=== PATIENT | female | born 1960 | race Caucasian/White ===

== ENCOUNTER 2016-11-17 15:24 | Emergency (ER) | payer MEDICAID | END 2016-11-17 15:58 | disposition home or self-care (01) | DX: T36.0X5A Adverse effect of penicillins, initial encounter (principal); R11.2 Nausea with vomiting, unspecified; K08.409 Partial loss of teeth, unspecified cause, unspecified class ==

== ENCOUNTER 2017-03-07 08:06 | Outpatient (CLI) | payer MEDICAID ==
[2017-03-07 08:40] LABS: BASOPHILS # (AUTO) 0.1 10^3/uL (0.0-0.1); BASOPHILS % (AUTO) 2.8 %; EOSINOPHILS # (AUTO) 0.1 10^3/uL (0.0-0.7); EOSINOPHILS % (AUTO) 3.7 %; HCT - HEMATOCRIT 41.1 % (37.0-47.0); HGB - HEMOGLOBIN 13.8 g/dL (12.0-16.0); LYMPHOCYTES # (AUTO) 1.5 10^3/uL (1.5-3.5); LYMPHOCYTES % (AUTO) 38.4 %; MEAN CORPUSCULAR HEMOGLOBIN 30.7 pg (27.0-31.0); MEAN CORPUSCULAR HGB CONC 33.6 g/dL (32.0-36.0); MEAN CORPUSCULAR VOLUME 91.4 fL (81.0-99.0); MEAN PLATELET VOLUME 8.1 fL (7.9-10.8); MONOCYTES # (AUTO) 0.3 10^3/uL (0.0-1.0); MONOCYTES % (AUTO) 7.4 %; NEUTROPHILS # (AUTO) 1.8 10^3/uL (1.5-6.6); NEUTROPHILS % (AUTO) 47.7 %; NUCLEATED RED BLOOD CELLS AUTO 0.1 /100WBC; RED CELL DISTRIBUTION WIDTH 14.6 % (12.0-15.0); UNCORRECTED WHITE BLOOD COUNT 3.8 x10^3/uL; WHITE BLOOD COUNT 3.8 x10^3/uL (4.8-10.8)
[2017-03-07 09:08] LABS: ALBUMIN/GLOBULIN RATIO 1.5 (1.0-2.2); BILIRUBIN,TOTAL 0.3 mg/dL (0.2-1.0); BUN - BLOOD UREA NITROGEN 12 mg/dL (6-20); CALCIUM 9.1 mg/dL (8.5-10.3); CARBON DIOXIDE - CO2 28 mmol/L (21-32); CHLORIDE 107 mmol/L (101-111); CHOL/HDL RATIO 3.5 (<4.4); CHOLESTEROL 200 mg/dL; CREATININE 0.7 mg/dL (0.4-1.0); GFR - MDRD 87 (>89); GLUCOSE 90 mg/dL (70-100); HDL CHOLESTEROL 57 mg/dL; LDL/HDL RATIO 2.1 (<4.4); POTASSIUM 3.8 mmol/L (3.5-5.0); SODIUM 141 mmol/L (135-145); TOTAL PROTEIN 7.2 g/dL (6.7-8.2); TRIGLYCERIDES 118 mg/dL; VLDL CHOLESTEROL 24 mg/dL
== END 2017-03-07 08:07 | disposition home or self-care (01) ==
LOC: LAB 08:06
PROVIDERS: ATTEND Family Medicine
DX: Z00.00 Encounter for general adult medical examination without abnormal findings (principal)
CPT/HCPCS: 36415; 80053; 80061; 84443; 85025

== ENCOUNTER 2018-01-16 19:45 | Emergency (ER) | payer MEDICAID ==
[2018-01-16] MEDS ORDERED: HYDROcod/ACETAM 5/325 MG TABLET PO STA (20:15)
--- NOTE | 2018-01-16 20:17 | ED Physician Documentation ---
PD HPI LOWER EXT INJURY - Stated complaint Stated Complaint: LT ANKLE PX/FALL - Chief complaint Chief Complaint: Ext Problem - History obtained from History obtained from: Patient - History of Present Illness PD HPI LOW EXT INJURY LOCATION: Other (She has a history of seizure disorder, on Depakote and Dilantin. She has been feeling a little off and out of it all day, dizzy and woozy and forgetful. She fell down a slope and injured her right ankle. She hurt her neck a little bit. She is able to walk and bear weight but with a lot of pain. 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 05/06/16 11/17/16 Phenytoin [Dilantin] 400 mg PO DAILY #8 capsule 05/06/16 11/17/16 HYDROcod/ACETAM 5/325 [[place] 5/325] 1 - 2 ea PO Q6H PRN #15 tablet 01/16/18 - Allergies Allergies/Adverse Reactions: Allergies Allergy/AdvReac Type Severity Reaction Status Date / Time codeine Allergy Rash Verified 01/16/18 20:01 - Social History Does the pt smoke?: Yes Smoking Status: Current every day smoker Does the pt drink ETOH?: No Does the pt have substance abuse?: No - Immunizations Immunizations are current?: No Immunizations: TDAP >10years/unknown PD ED PE NORMAL - Vitals Vital signs reviewed: Yes - General General: Alert and oriented X 3, No acute distress - Neck Neck: Supple, no meningeal sign, No bony TTP - Extremities Extremities: Other (Right leg is tender over the mid fibula laterally, I am able to feel her hardware and she is nontender over what seems to be a lateral plate there. Mild posterior ankle tenderness but the Achilles function is normal. The foot is nontender.) - Neuro Neuro: Alert and oriented X 3, Normal speech Results - Vitals Vitals: Vital Signs - 24 hr 01/16/18 01/16/18 19:52 21:30 Temperature 36.4 C L 36.5 C Heart Rate 73 66 Respiratory 17 16 Rate Blood Pressure 109/67 115/71 O2 Saturation 97 98 Oxygen O2 Source Room air - Labs Labs: Laboratory Tests 01/16/18 20:54 Last Dose Date UNK Last Dose Time UNK Phenytoin 14.4 Valproic Acid 12.8 - Rads (name of study) X-rays of the left ankle and tib-fib Radiology: EMP read contemporaneously (Mildly displaced fracture of the fibular head without mortise widening or ankle fracture.) PD MEDICAL DECISION MAKING - ED course ED course: 57-year-old woman with lower extremity injury, proximal fibular fracture on the left with remote history of ORIF of the lateral side of that ankle, however based on exam and x-ray it does not seem to have any primary ankle injury and the medial ligaments look without widening on the pictures. Case was discussed by phone with the orthopedic surgeon on-call, Dr. Drake who felt this could be handled conservatively and she could weight-bear as tolerated. - Sepsis Event Vital Signs: Vital Signs - 24 hr 01/16/18 01/16/18 19:52 21:30 Temperature 36.4 C L 36.5 C Heart Rate 73 66 Respiratory 17 16 Rate Blood Pressure 109/67 115/71 O2 Saturation 97 98 Oxygen O2 Source Room air Departure - Departure Disposition: 01 Home, Self Care Clinical Impression: Left fibular fracture Qualifiers: Encounter type: initial encounter Fibula location: proximal Fracture type: closed Fracture morphology: other fracture Qualified Code(s): S82.832A - Other fracture of upper and lower end of left fibula, initial encounter for closed fracture Condition: Good Record reviewed to determine appropriate education?: Yes Instructions: ED Fx Lower Ext Follow-Up: [facility] [Provider Group] - Within 1 week Prescriptions: HYDROcod/ACETAM 5/325 [[place] 5/325] 1 - 2 ea PO Q6H PRN #15 tablet PRN Reason: Pain Comments: You may walk and bear weight as tolerated. Follow-up with the orthopedics clinic clinic, call Saturday for an appointment within the week.
--- NOTE | 2018-01-16 20:55 | XRAY Preliminary Report ---
Exam: XR TIB/FIB LT IMPRESSION: 1. Mildly displaced fibular head fracture. 2. Status post ORIF distal fibula, intact. [facility] SITE ID: [id number]
--- NOTE | 2018-01-16 20:55 | XRAY Report ---
EXAM: LEFT TIBIA/FIBULA AND ANKLE RADIOGRAPHY EXAM DATE: 01/16/2018 08:48 PM. CLINICAL HISTORY: Left leg pain. COMPARISON: None. TECHNIQUE: 2 views tibia/fibula and 3 views ankle. FINDINGS: Bones: There is a mildly displaced fracture involving the fibular head. There is fusion of the distal fibula with no hardware failure demonstrated. The remainder osseous structures are intact. Minor mehran ntar spurring is seen. Joints: The visualized knee and ankle joints are normal. No effusions. Soft Tissues: Normal. No soft tissue swelling. IMPRESSION: 1. Mildly displaced fibular head fracture. 2. Status post ORIF distal fibula, intact. [facility] Referring Provider Line: [phone] SITE ID: [id number]
--- NOTE | 2018-01-16 20:55 | XRAY Preliminary Report ---
Exam: XR ANKLE 3 VIEW LT IMPRESSION: 1. Mildly displaced fibular head fracture. 2. Status post ORIF distal fibula, intact. [facility] SITE ID: [id number]
[2018-01-16] MEDS ORDERED: HYDROcod/ACET 5/325 Prepack 4 PO STA (21:02)
[2018-01-16 21:16] LABS: PHENYTOIN (DILANTIN) 14.4 ug/mL; VALPROIC ACID (DEPAKOTE) 12.8 ug/mL
[2018-01-16 21:31] VITALS: BP 115/71
== END 2018-01-16 21:53 | disposition home or self-care (01) ==
LOC: ED 19:45
DX: S82.832A Other fracture of upper and lower end of left fibula, initial encounter for closed fracture (principal); W18.30XA Fall on same level, unspecified, initial encounter; Y93.01 Activity, walking, marching and hiking; Y92.89 Other specified places as the place of occurrence of the external cause; F17.200 Nicotine dependence, unspecified, uncomplicated
CPT/HCPCS: 36415; 73590; 73610; 80164; 80185; 99283; A9270

== ENCOUNTER 2018-01-21 19:28 | Emergency (ER) | payer MEDICAID ==
[2018-01-21 21:14] VITALS: BP 127/78
--- NOTE | 2018-01-21 21:15 | ED Physician Documentation ---
PD HPI LOWER EXT INJURY - Stated complaint Stated Complaint: L FT SWELLING - Chief complaint Chief Complaint: Ext Problem - History obtained from History obtained from: Patient - History of Present Illness PD HPI LOW EXT INJURY LOCATION: Left, Lower leg Type of injury: Fall Timing - onset: How many weeks ago (1) Timing - details: Abrupt onset, Still present Improved by: Immobilization Similar symptoms before: Work up / diagnostics, Treatment Recently seen: Emergency Dept - Additional information Additional information: Patient is a 57 year old female who is presenting to the emergency department for lower extremity swelling. Patient was seen in the emergency department a few days prior and was diagnosed with a fib fracture. patient states that her pain medications aren't working and her foot is swollen so she came to the emergency department. patient has not found an orthopedist who takes her insurance so she has not been able to follow up. 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 05/06/16 11/17/16 Phenytoin [Dilantin] 400 mg PO DAILY #8 capsule 05/06/16 11/17/16 HYDROcod/ACETAM 5/325 [[place] 5/325] 1 - 2 ea PO Q6H PRN #15 tablet 01/16/18 - Allergies Allergies/Adverse Reactions: Allergies Allergy/AdvReac Type Severity Reaction Status Date / Time codeine Allergy Rash Verified 01/16/18 20:01 - Social History Does the pt smoke?: Yes Smoking Status: Current every day smoker Does the pt drink ETOH?: No Does the pt have substance abuse?: No - Immunizations Immunizations are current?: No Immunizations: TDAP >10years/unknown PD ED PE NORMAL - Vitals Vital signs reviewed: Yes - General General: Alert and oriented X 3, No acute distress - HEENT HEENT: Atraumatic - Cardiac Cardiac: RRR - Respiratory Respiratory: No respiratory distress - Abdomen Abdomen: Non distended - Derm Derm: Normal color, Warm and dry - Neuro Neuro: Alert and oriented X 3, Normal speech Eye Opening: Spontaneous PD ED PE EXPANDED - Extremities Extremities: Pedal edema L, Pedal Pulses Present, Motor intact, Sensory intact, Vascular intact, Other (swelling of left foot, neurovascularly intact). No: Decreased/absent pulse, Cold foot Results - Vitals Vitals: Vital Signs - 24 hr 18 01/21/18 19:51 21:13 Temperature 36.0 C L 36.5 C Heart Rate 85 79 Respiratory 18 18 Rate Blood Pressure 115/64 127/78 O2 Saturation 99 97 Oxygen O2 Source Room air PD MEDICAL DECISION MAKING - ED course Complexity details: reviewed old records, reviewed results, re-evaluated patient , considered differential, d/w patient, d/w family ED course: Patient was seen and examined at bedside. patient was well appearing. Patient' s previous records were reviewed. patient was given copies of her x-rays. Patient was neurovascularly intact. patient required no further inpatient work up and was stable for discharge with outpatient follow up. - Sepsis Event Vital Signs: Vital Signs - 24 hr 18 01/21/18 19:51 21:13 Temperature 36.0 C L 36.5 C Heart Rate 85 79 Respiratory 18 18 Rate Blood Pressure 115/64 127/78 O2 Saturation 99 97 Oxygen O2 Source Room air Departure - Departure Disposition: 01 Home, Self Care Clinical Impression: Left fibular fracture Condition: Good Instructions: ED Fx Lower Ext Follow-Up: Audie Drake MD [Provider Admit Priv/Credential] - Within 1 week Comments: Your symptoms today are secondary to the fracture near your knee. your ankle looks well and there is no abnormality with the plates in your ankle. you should follow up with your doctor or doctor Drake for follow up. You should elevate your leg as much as possible and ice it at least 4 times a day. You may return to the emergency department at any time for new, worsening or uncontrollable symptoms. Discharge Date/Time: 01/21/18 21:25
== END 2018-01-21 21:25 | disposition home or self-care (01) ==
LOC: ED 19:28
DX: S82.402D Unspecified fracture of shaft of left fibula, subsequent encounter for closed fracture with routine healing (principal); W19.XXXD Unspecified fall, subsequent encounter; F17.200 Nicotine dependence, unspecified, uncomplicated
CPT/HCPCS: 99282; 99283

== ENCOUNTER 2019-12-24 18:51 | Outpatient (CLI) | payer MEDICARE | END 2019-12-24 18:52 | disposition home or self-care (01) | LOC: COV 18:51 | PROVIDERS: ATTEND Family Medicine | DX: R50.9 Fever, unspecified (principal); R05 Cough; R06.02 Shortness of breath; M79.10 Myalgia, unspecified site; R53.83 Other fatigue; J02.9 Acute pharyngitis, unspecified | CPT/HCPCS: 81599 ==

== ENCOUNTER 2020-10-13 15:34 | Outpatient (CLI) | payer MEDICARE, MEDICAID | END 2020-10-13 15:35 | disposition critical access hospital (66) | LOC: EMS 15:34 | PROVIDERS: ATTEND Emergency Medicine | DX: R56.9 Unspecified convulsions (principal) | CPT/HCPCS: A0425; A0429 ==

== ENCOUNTER 2020-10-13 15:38 | Emergency (ER) | payer MEDICAID, MEDICARE ==
--- NOTE | 2020-10-13 16:18 | ED Physician Documentation ---
PD HPI SEIZURE - Stated complaint Stated Complaint: SEIZURE - Chief complaint Chief Complaint: Neuro - History obtained from History obtained from: Patient - History of Present Illness Timing - onset: Today Witnessed: Witnessed Number of seizures: Single Description of seizure activity: Generalized, Tonic clonic Injury during seizure: None Pain level max: 0 Pain level now: 0 History of seizures: Known seizure disorder Contributing factors: No: Off meds, Changed meds, Low blood sugar, Head injury, Substance abuse, EtOH withdrawal, Benzo withdrawal, Overdose, Fever, Sleep deprivation Similar symptoms before: Diagnosis (recurrent seizures) - Additional information Additional information: 60-year-old female presents to the emergency department with a seizure today. Has a longstanding history of seizures. She states she has 1 every few days. This was described as a generalized tonic-clonic seizure. Witnessed by her . No injuries. No tongue biting. She states she has not missed any of her medications. She is on Dilantin. No urinary incontinence. Nothing makes it better or worse. No recent illnesses. Review of Systems Ten Systems: 10 systems reviewed and negative Constitutional: denies: Fever, Chills Ears: denies: Ear pain Nose: denies: Rhinorrhea / runny nose, Congestion Cardiac: denies: Chest pain / pressure, Palpitations Respiratory: denies: Dyspnea, Cough GI: denies: Vomiting, Diarrhea Skin: denies: Rash Musculoskeletal: denies: Neck pain, Back pain Neurologic: reports: Confused (initially post ictal, but improving). 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 05/06/16 11/17/16 Phenytoin [Dilantin] 400 mg PO DAILY #8 capsule 05/06/16 11/17/16 HYDROcod/ACETAM 5/325 [[place] 5/325] 1 - 2 ea PO Q6H PRN #15 tablet 01/16/18 - Allergies Allergies/Adverse Reactions: Allergies Allergy/AdvReac Type Severity Reaction Status Date / Time codeine Allergy Rash Verified 10/13/20 15:53 - Social History Does the pt smoke?: Yes Smoking Status: Current every day smoker Does the pt drink ETOH?: No Does the pt have substance abuse?: No - Immunizations Immunizations are current?: No Immunizations: TDAP >10years/unknown PD ED PE NORMAL - Vitals Vital signs reviewed: Yes - General General: Alert and oriented X 3, No acute distress - HEENT HEENT: Atraumatic, PERRL, Ears normal, Moist mucous membranes, Pharynx benign - Neck Neck: Supple, no meningeal sign - Cardiac Cardiac: RRR, Strong equal pulses - Respiratory Respiratory: No respiratory distress, Clear bilaterally - Abdomen Abdomen: Soft, Non tender, Non distended - Back Back: No spinal TTP - Derm Derm: Warm and dry, No rash - Extremities Extremities: No edema, No calf tenderness / cord, Other (L foot - Tender palpation over the dorsal distal aspect of the fifth metatarsal.) - Neuro Neuro: Alert and oriented X 3, radio board operator announcer 2-12 intact, No motor deficit, No sensory deficit, Normal speech - Psych Psych: Normal mood, Normal affect Results - Vitals Vitals: Vital Signs - 24 hr 10/13/20 10/13/20 10/13/20 15:45 17:00 17:29 Temperature 36.7 C Heart Rate 76 95 90 Respiratory 16 16 16 Rate Blood Pressure 111/72 102/42 L 101/46 L O2 Saturation 95 96 96 10/13/20 10/13/20 18:13 18:45 Temperature Heart Rate 90 70 Respiratory 16 16 Rate Blood Pressure 103/46 L 117/77 O2 Saturation 96 96 Oxygen O2 Source Room air - Labs Labs: Laboratory Tests 10/13/20 10/13/20 10/13/20 16:35 16:35 16:35 WBC 8.3 RBC 4.42 Hgb 14.0 Hct 42.3 MCV 95.7 MCH 31.7 H MCHC 33.1 RDW 14.3 Plt Count 228 MPV 9.4 Neut # (Auto) 5.0 Lymph # (Auto) 2.5 Karnes # (Auto) 0.5 Eos # (Auto) 0.1 Baso # (Auto) 0.1 Absolute Nucleated RBC 0.00 Nucleated RBC % 0.0 Sodium 140 Potassium 4.0 Chloride 104 Carbon Dioxide 27 Anion Gap 9.0 BUN 19 Creatinine 0.8 Estimated GFR (MDRD) 74 L Glucose 90 Calcium 8.9 Total Bilirubin 0.7 AST 29 ALT 29 Alkaline Phosphatase 135 H Total Protein 6.9 Albumin 3.8 Globulin 3.1 Albumin/Globulin Ratio 1.2 Lipase 39 Phenytoin 8.8 Ethyl Alcohol < 5.0 - Rads (name of study) head Ct Radiology: Prelim report reviewed, EMP read contemporaneously, See rad report (no acute abnormality.) L foot xray Radiology: Prelim report reviewed, EMP read contemporaneously, See rad report (Minimally displaced oblique fracture involving fifth metatarsal neck as above. No other fracture or dislocation. Prior fixation of distal fibular shaft. ) PD MEDICAL DECISION MAKING - ED course Complexity details: reviewed results, re-evaluated patient, considered differential, d/w patient ED course: Patient is a 60-year-old female with known seizure disorder. She states she has been taking her medication. Her Dilantin level is minimally subtherapeutic, but she is due for her next dose. We will have her continue her current medications and have her follow-up with her doctor. She will also be placed in a walking boot for the fifth metatarsal fracture. Patient did clear in the emergency department. She is now complaining of left knee pain. There is small amount of bruising all tenderness on the medial aspect. An x-ray will be ordered. She also does complain of urinary symptoms so urinalysis will be ordered. Patient will be signed out to the [facility] emergency department physician. This document was made in part using voice recognition software. While efforts are made to proofread this document, sound alike and grammatical errors may occur. Departure - Departure Clinical Impression: Seizure Fracture of 5th metatarsal Qualifiers: Encounter type: initial encounter Fracture type: closed Fracture alignment: displaced Laterality: left Qualified Code(s): S92.352A - Displaced fracture of fifth metatarsal bone, left foot, initial encounter for closed fracture Condition: Stable
[2020-10-13 16:41] LABS: BASOPHILS # (AUTO) 0.1 10^3/uL (0.0-0.1); BASOPHILS % (AUTO) 1.3 %; EOSINOPHILS # (AUTO) 0.1 10^3/uL (0.0-0.7); EOSINOPHILS % (AUTO) 1.3 %; HCT - HEMATOCRIT 42.3 % (37.0-47.0); LYMPHOCYTES # (AUTO) 2.5 10^3/uL (1.5-3.5); LYMPHOCYTES % (AUTO) 30.6 %; MEAN CORPUSCULAR HEMOGLOBIN 31.7 pg (27.0-31.0); MEAN CORPUSCULAR HGB CONC 33.1 g/dL (32.0-36.0); MEAN CORPUSCULAR VOLUME 95.7 fL (81.0-99.0); MEAN PLATELET VOLUME 9.4 fL (7.9-10.8); MONOCYTES # (AUTO) 0.5 10^3/uL (0.0-1.0); NEUTROPHILS % (AUTO) 60.1 %; PLT - PLATELET COUNT 228 10^3/uL (130-450); RED BLOOD COUNT 4.42 10^6/uL (4.20-5.40); RED CELL DISTRIBUTION WIDTH 14.3 % (12.0-15.0); WHITE BLOOD COUNT 8.3 x10^3/uL (4.8-10.8)
[2020-10-13 16:53] LABS: ALBUMIN 3.8 g/dL (3.2-5.5); ALBUMIN/GLOBULIN RATIO 1.2 (1.0-2.2); BILIRUBIN,TOTAL 0.7 mg/dL (0.2-1.0); CALCIUM 8.9 mg/dL (8.5-10.3); CREATININE 0.8 mg/dL (0.4-1.0); PHENYTOIN (DILANTIN) 8.8 ug/mL; TOTAL PROTEIN 6.9 g/dL (6.7-8.2)
[2020-10-13] MEDS ORDERED: SODIUM CHLORIDE 0.9% 1,000 ML IV STA (17:59)
[2020-10-13] MEDS ORDERED: LORazepam 2 MG/ML VIAL IVP STA (17:59)
--- NOTE | 2020-10-13 18:22 | CT Report ---
PROCEDURE: HEAD WO INDICATIONS: seizure, prolonged AMS TECHNIQUE: Noncontrast 4.5 mm thick angled axial sections acquired from the foramen magnum to the vertex. For r adiation dose reduction, the following was used: automated exposure control, adjustment of mA and/or kV according to patient size. COMPARISON: None. FINDINGS: Image quality: Excellent. CSF spaces: Basal cisterns are patent. No extra-axial fluid collections. Ventricles are normal in size and shape. Brain: No intracranial hemorrhage, mass, or mass effect. Arevalo-white matter interface is preserved. Skull and face: Calvarium and visualized facial bones are intact, without suspicious lesions. Sinuses: Visualized sinuses and mastoids are clear. IMPRESSION: 1. No acute intracranial abnormality. Reviewed by: Leonel Segura MD on 10/13/2020 5:20 PM RUST Approved by: Leonel Segura MD on 10/13/2020 5:20 PM RUST Station ID: [id number]
--- NOTE | 2020-10-13 18:42 | XRAY Report ---
PROCEDURE: Foot 3 View LT INDICATIONS: seizure, foot pain TECHNIQUE: 3 views of the foot were acquired. COMPARISON: Left ankle radiograph dated 01/16/2018 FINDINGS: Bones: Post-ORIF changes are noted in distal fibular shaft. No gross hardware loosening or failure. T here is an oblique fracture through distal shaft/neck of fifth metatarsal bone with minimal medial di splacement at fracture site. No other fracture or dislocation is seen. Soft tissues: No tibiotalar joint effusion. Achilles tendon appears normal. IMPRESSION: Minimally displaced oblique fracture involving fifth metatarsal neck as above. No other fracture or d islocation. Prior fixation of distal fibular shaft. Reviewed by: Rubio Soria MD on 10/13/2020 6:40 PM PST Approved by: Rubio Soria MD on 10/13/2020 6:40 PM PST Station ID: [id number]
[2020-10-13 18:48] VITALS: BP 117/77
[2020-10-13 19:09] LABS: MUDS CUTOFF CONCENTRATIONS CUTOFF CONC BELOW:
[2020-10-13 19:26] LABS: BILIRUBIN,URINE NEGATIVE (NEGATIVE); GLUCOSE, URINE (UA) NEGATIVE (NEGATIVE); KETONES,URINE (UA) NEGATIVE (NEGATIVE); LEUKOCYTE ESTERASE, URINE NEGATIVE (NEGATIVE); NITRITE,URINE NEGATIVE (NEGATIVE); OCCULT BLOOD,URINE NEGATIVE (NEGATIVE); PROTEIN,URINE NEGATIVE (NEGATIVE); UROBILINOGEN,URINE 0.2 (NORMAL) E.U./dL (NORMAL)
[2020-10-13 19:28] LABS: CLARITY,URINE CLEAR (CLEAR)
--- NOTE | 2020-10-13 19:35 | XRAY Report ---
PROCEDURE: Knee 4 View LT INDICATIONS: seizure, knee pain TECHNIQUE: 4 views of the left knee(s) were acquired. COMPARISON: None. FINDINGS: Bones: No fractures or dislocations. No suspicious bony lesions. Medial femoral tibial compartment osteophytic changes are seen. Soft tissues: No joint effusion. No suspicious soft tissue calcifications. IMPRESSION: No left knee fracture or dislocation. No joint effusion. 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 Reviewed by: Rubio Soria MD on 10/13/2020 7:34 PM PST Approved by: Rubio Soria MD on 10/13/2020 7:34 PM PST Station ID: [id number]
[2020-10-13 19:39] LABS: AMPHETAMINE SCREEN,URINE NEGATIVE (NEGATIVE); BARBITURATE SCREEN,UR POSITIVE (NEGATIVE); BENZODIAZEPINES SCREEN, URINE NEGATIVE (NEGATIVE); COCAINE SCREEN URINE NEGATIVE (NEGATIVE); METHADONE SCREEN, URINE NEGATIVE (NEGATIVE); METHAMPHETAMINES SCREEN, URINE NEGATIVE (NEGATIVE); OPIATE SCREEN, URINE NEGATIVE (NEGATIVE); OXYCODONE SCREEN, URINE NEGATIVE (NEGATIVE); PROPOXYPHENE SCREEN, URINE NEGATIVE (NEGATIVE); THC CANNABINOID SCREEN, URINE NEGATIVE (NEGATIVE); TRICYCLIC ANTIDEPRESSANT,URINE POSITIVE (NEGATIVE)
[2020-10-13] MEDS ORDERED: KETOROLAC 30 MG/ML VIAL IVP STA (19:47)
--- NOTE | 2020-10-13 19:52 | ED Physician Documentation ---
ED Addendum - Addendum Addendum: 10/13/20 19:51 Patient endorsed to me by Dr. Oliveira. She is well-appearing, alert and oriented x3 with no neuro deficits on exam. Ambulatory without difficulty. Her knee x- ray is noncontributory and u/a is normal. We will place a Lc wrap, walking boot, and have her follow-up with orthopedics in 1 week. She will also follow- up with her neurologist on October 18. Strict return precautions given.
== END 2020-10-13 20:05 | disposition home or self-care (01) ==
LOC: EDUNIT# → ED 15:38 → SUPCPDRO 15:38 → ED 20:05
DX: S92.352A Displaced fracture of fifth metatarsal bone, left foot, initial encounter for closed fracture (principal); X58.XXXA Exposure to other specified factors, initial encounter; M25.569 Pain in unspecified knee; F17.200 Nicotine dependence, unspecified, uncomplicated; G40.909 Epilepsy, unspecified, not intractable, without status epilepticus
CPT/HCPCS: 36415; 70450; 73564; 73630; 80053; 80185; 80306; 81003; 83690; 85025; 96361; 96374; 96375; 99284; G0480; J2060; 80320; 81001; 87086

== ENCOUNTER 2020-12-19 14:41 | Outpatient (CLI) | payer MEDICAID, MEDICARE ==
--- NOTE | 2020-12-20 18:08 | Ultrasound Report ---
PROCEDURE: Duplex Lwr Ext Arterial Bilat INDICATIONS: PERIPHERAL VASCULAR DISEASE TECHNIQUE: Color and pulse Doppler interrogation was performed of both lower extremity arterial systems, with im age documentation. COMPARISON: Left lower extremity radiographs 01/16/2018. FINDINGS: Right lower extremity: Common femoral artery: 105 cm/sec, with triphasic flow. Deep femoral artery: 81 cm/sec, with triphasic flow. Proximal superficial femoral artery: 78 cm/sec, with triphasic flow. Mid superficial femoral artery: 110 cm/sec, with triphasic flow. Distal superficial femoral artery: 97 cm/sec, with triphasic flow. Popliteal artery: 70 cm/sec, with triphasic flow. Posterior tibial artery: 69 cm/sec, with triphasic flow. Anterior tibial artery/dorsalis pedis: 71/46 cm/sec, with triphasic/biphasic flow. Arevalo-scale imaging description: Scattered calcified plaque. Left lower extremity: Common femoral artery: 50 cm/sec, with monophasic flow. Deep femoral artery: 37 cm/sec, with monophasic flow. Proximal superficial femoral artery: 59 cm/sec, with monophasic flow. Mid superficial femoral artery: 50 cm/sec, with monophasic flow. Distal superficial femoral artery: 32 cm/sec, with monophasic flow. Popliteal artery: 40 cm/sec, with monophasic flow. Posterior tibial artery: 20 cm/sec, with monophasic flow. Anterior tibial artery/dorsalis pedis: 15/6 cm/sec, with monophasic/monophasic flow. Suboptimally vi sualized. Arevalo-scale imaging description: Scattered calcified plaque. IMPRESSION: 1. Scattered calcified plaque, left greater than right. 2. Low velocities in the left TRANSITION SPECIALIST. Monophasic waveforms in the left lower extremity. This could be in dicative of more central disease in the left iliac artery. Consider further evaluation with CTA with runoff. Reviewed by: Indra Bolanos MD on 12/20/2020 6:07 PM PDT Approved by: Indra Bolanos MD on 12/20/2020 6:07 PM PDT Station ID: [id number]
== END 2020-12-19 14:42 | disposition home or self-care (01) ==
LOC: DI 14:41
PROVIDERS: ATTEND Orthopaedic Surgery
DX: I73.9 Peripheral vascular disease, unspecified (principal)
CPT/HCPCS: 93925

== ENCOUNTER 2020-12-27 13:27 | Outpatient (CLI) | payer MEDICARE ==
--- NOTE | 2020-12-27 17:15 | XRAY Report ---
PROCEDURE: Foot 3 View LT INDICATIONS: DISPLACED FX OF L 5TH METATARSAL BONE TECHNIQUE: 3 views of the foot were acquired. COMPARISON: 10/13/2020 FINDINGS: Bones: There is a healing spiral fracture of the fifth metatarsal neck with increased callus formati on and sclerosis along the fracture margins. Fracture line remains visible. No change in alignment. R emaining visualized osseous structures appear intact. A fixation plate is again demonstrated in the d istal fibula with multiple fixation screws. Soft tissues: No tibiotalar joint effusion. Achilles tendon appears intact. IMPRESSION: 1. Healing spiral fracture of the fifth metatarsal neck without change in alignment. Reviewed by: Leonel Segura MD on 12/27/2020 5:13 PM PDT Approved by: Leonel Segura MD on 12/27/2020 5:13 PM PDT Station ID: [id number]
== END 2020-12-27 23:59 | disposition home or self-care (01) ==
LOC: DI.N 13:27
PROVIDERS: ATTEND Orthopaedic Surgery
DX: S92.352A Displaced fracture of fifth metatarsal bone, left foot, initial encounter for closed fracture (principal)

== ENCOUNTER 2021-01-28 09:32 | Outpatient (CLI) | payer MEDICAID, MEDICARE ==
--- NOTE | 2021-01-28 18:43 | Ultrasound Report ---
PROCEDURE: Duplex Aorta Complete INDICATIONS: PERIPHERAL VASCULAR DISEASE TECHNIQUE: Color and pulse Doppler interrogation was performed of the aorta and iliac arterial systems, with karin ge documentation. COMPARISON: None. FINDINGS: Aorta: 94.4 cm/sec, with biphasic flow. Right lower extremity: Proximal common iliac artery: 168cm/sec, with biphasic flow. Distal common iliac artery: Not well seen Proximal external iliac artery: 161.8 cm/sec, with biphasic flow. Distal external iliac artery: 270.2 cm/sec, with biphasic flow. Common femoral artery: 138.1 cm/sec, with biphasic flow. Arevalo-scale imaging description: By grayscale imaging, there is a suggestion of a possible severe ext ernal iliac stenosis. Left lower extremity: Proximal common iliac artery: 333.7 cm/sec, with biphasic flow. Distal common iliac artery: Not well seen Proximal external iliac artery: 86.1 cm/sec, with monophasic parvus tardus flow. Distal external iliac artery: 69.8 cm/sec, with monophasic parvus tardus flow. Common femoral artery: 65.9 cm/sec, with monophasic parvus tardus flow. Arevalo-scale imaging description: A severe left common iliac artery stenosis results in parvus tardus low resistance waveforms distal to the stenosis IMPRESSION: Bilateral hemodynamically significant iliac stenotic disease. Comment: Consider consultation for endovascular intervention for hemodynamically significant bilatera l iliac stenotic disease if this patient has significant claudication or limb ischemia symptomatology . Reviewed by: Joe Adler MD on 01/28/2021 5:42 PM MAYI Approved by: Joe Adler MD on 01/28/2021 5:42 PM MAYI Station ID: [id number]
== END 2021-01-28 09:33 | disposition home or self-care (01) ==
LOC: DI 09:32
PROVIDERS: ATTEND Orthopaedic Surgery
DX: I70.202 Unspecified atherosclerosis of native arteries of extremities, left leg (principal); I70.201 Unspecified atherosclerosis of native arteries of extremities, right leg
CPT/HCPCS: 93978

== ENCOUNTER 2021-07-19 15:25 | Emergency (ER) | payer MEDICARE ==
[2021-07-19] MEDS ORDERED: KETOROLAC 30 MG/ML VIAL IM STA (16:19)
[2021-07-19] MEDS ORDERED: oxyCODONE 5 MG TABLET PO STA (16:19)
[2021-07-19] MEDS ORDERED: CLINDAMYCIN 150 MG CAPSULE PO STA (16:19)
--- NOTE | 2021-07-19 16:29 | ED Physician Documentation ---
PD HPI HEENT - Stated complaint Stated Complaint: SEIZURE; TOOTH PX; CAT CLAW IN EYELID - Chief complaint Chief Complaint: Neuro - History obtained from History obtained from: Patient - History of Present Illness Timing - onset: How many days ago (has had few days of pain and swelling left upper frontal tooth. she says her cat scratched her today on upper eyelid that hurts. She wonders if piece of claw still in it. She has history of epilepsy and had not had seizure for several months. Had general brief seizure today. No injury.) Timing - duration: Days (for the tooth infection. Abrupt seizure today.) Timing - details: Gradual onset Location: Tooth (left upper incisor.) Associated symptoms: Facial swelling (left maxillary area.), Other (no recent change in seizure meds. Denies missing doses.). No: Fever, Congestion, Rhinorrhea, Headache Similar symptoms before: Diagnosis (has had dental infections previously. Has only 2 upper teeth left, both incisors, with hope of using for plate/crown.) Recently seen: Not recently seen Review of Systems Constitutional: denies: Fever, Chills Eyes: denies: Loss of vision, Decreased vision, Photophobia Nose: denies: Rhinorrhea / runny nose, Congestion Throat: reports: Dental pain / toothache. 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, Breast cancer : Kidney stones HEENT: None Psych: Anxiety Musculoskeletal: None Derm: None - Past Surgical History Past Surgical History: Yes /FRAMING CONSULTANT: Hysterectomy - Present Medications Home Medications: Ambulatory Orders Medication Instructions Recorded Confirmed Hydroxyzine Pamoate 25 mg PO DAILY PRN 03/15/16 07/19/21 Clindamycin [Cleocin] 300 mg PO TID 6 Days #18 cap 07/19/21 Doxepin [SINEquan] 25 mg PO QPM 07/19/21 07/19/21 Gabapentin [Neurontin] 300 mg PO BID 07/19/21 07/19/21 Levetiracetam [Keppra] 500 mg PO BID 07/19/21 07/19/21 Oxycodone HCl/Acetaminophen 1 each PO Q6H PRN #15 tablet 07/19/21 [Percocet 5-325 mg Tablet] Phenytoin [Dilantin] 300 mg PO DAILY 07/19/21 07/19/21 Topiramate [Topamax] 150 mg PO BID 07/19/21 07/19/21 Venlafaxine HCl 150 mg PO DAILY 07/19/21 07/19/21 hydroCHLOROthiazide [Hydrodiuril] 12.5 mg PO DAILY 07/19/21 07/19/21 - Allergies Allergies/Adverse Reactions: Allergies Allergy/AdvReac Type Severity Reaction Status Date / Time codeine Allergy Rash Verified 10/13/20 15:53 - Social History Does the pt smoke?: Yes Smoking Status: Current every day smoker Does the pt drink ETOH?: No Does the pt have substance abuse?: No - Immunizations Immunizations are current?: Yes Immunizations: TDAP >10years/unknown PD ED PE NORMAL - Vitals Vital signs reviewed: Yes - General General: Alert and oriented X 3, No acute distress, Well developed/nourished - HEENT HEENT: Atraumatic, PERRL, EOMI (left upper lateral eyelid with superficial laceration 3 mm size. There is some dried flap of skin at it. No FB noted, but I trimmed the loose skin away. Some dried blood there as well, that washes easily away. ), Moist mucous membranes, Pharynx benign. No: Dentition benign (only 2 incisor upper teeth left. There is swelling and mild fluctuance of gum left side. Palpation of the swelling led to opening of the tissue slightly, so is now draining. ) - Neck Neck: Supple, no meningeal sign, No adenopathy - Cardiac Cardiac: RRR, No murmur - Respiratory Respiratory: Clear bilaterally Results - Vitals Vitals: Oxygen O2 Source Room air PD MEDICAL DECISION MAKING - ED course Complexity details: considered differential (dental infection that is starting to drain purulence. Will add abx. Left eyelid small lac that does not need i ntervention. ), d/w patient Departure - Departure Disposition: 01 Home, Self Care Clinical Impression: Seizure, Dental abscess Cat scratch of face Qualifiers: Encounter type: initial encounter Qualified Code(s): S00.81XA - Abrasion of other part of head, initial encounter Condition: Stable Instructions: ED Abscess Dental Follow-Up: PRISCILLA ANDINO MD [Primary Care Provider] - Prescriptions: Clindamycin [Cleocin] 300 mg PO TID 6 Days #18 cap Oxycodone HCl/Acetaminophen [Percocet 5-325 mg Tablet] 1 each PO Q6H PRN #15 tablet PRN Reason: pain Comments: Try to massage out some of the purulence from the abscess in the gum so it keeps draining. Use clindamycin antibiotic as directed in the prescription. Continue usual antiepileptic medications. Stay well-hydrated. Use Tylenol 4 times a day if needed for pains. Alternatively oxycodone if needed for worse pain. I would anticipate not needing the stronger pain medicine beyond the first 2 or 3 days as the infection improves. I transmitted your prescriptions to [facility] in [place]. I am prescribing a short course of narcotic pain medication for you. These are potentially dangerous and addictive medications that should be used carefully. These medications may constipate you. Take an oerd-djz-fxfygro stool softener such as docusate twice daily with plenty of water while taking these medications. If you go 24 hours without a bowel movement, take tetx-uio-ehodlhd MiraLAX, per package instructions. Do not drink or drive while taking these medications. If you received narcotic or sedating medications while in the emergency department do not drive for 24 hours. Store this medication in a safe, secure place and out of reach of children. It is a violation of federal law to give or sell this medication to another person or to use in a manner other than prescribed. The ED will not refill narcotic prescriptions, including prescriptions lost or stolen. You can dispose of unwanted medications at the [facility]'s office or at several pharmacies such as [facility]. Discharge Date/Time: 07/19/21 16:49
[2021-07-19 16:39] VITALS: BP 117/64
== END 2021-07-19 16:49 | disposition home or self-care (01) ==
LOC: ED 15:25
DX: S00.81XA Abrasion of other part of head, initial encounter (principal); W55.03XA Scratched by cat, initial encounter; K04.7 Periapical abscess without sinus; I10 Essential (primary) hypertension; F17.200 Nicotine dependence, unspecified, uncomplicated
CPT/HCPCS: 96372; 99283; A9270

== ENCOUNTER 2021-10-03 13:09 | Emergency (ER) | payer MEDICARE, MEDICAID ==
[2021-10-03 13:31] LABS: BASOPHILS # (AUTO) 0.1 10^3/uL (0.0-0.1); BASOPHILS % (AUTO) 1.5 %; EOSINOPHILS # (AUTO) 0.2 10^3/uL (0.0-0.7); EOSINOPHILS % (AUTO) 2.3 %; HCT - HEMATOCRIT 41.3 % (37.0-47.0); HGB - HEMOGLOBIN 14.2 g/dL (12.0-16.0); LYMPHOCYTES # (AUTO) 2.1 10^3/uL (1.5-3.5); LYMPHOCYTES % (AUTO) 32.1 %; MEAN CORPUSCULAR HEMOGLOBIN 31.3 pg (27.0-31.0); MEAN CORPUSCULAR HGB CONC 34.4 g/dL (32.0-36.0); MEAN PLATELET VOLUME 9.6 fL (7.9-10.8); MONOCYTES # (AUTO) 0.4 10^3/uL (0.0-1.0); MONOCYTES % (AUTO) 6.5 %; NEUTROPHILS # (AUTO) 3.8 10^3/uL (1.5-6.6); NEUTROPHILS % (AUTO) 57.3 %; PLT - PLATELET COUNT 272 10^3/uL (130-450); RED BLOOD COUNT 4.54 10^6/uL (4.20-5.40); RED CELL DISTRIBUTION WIDTH 13.1 % (12.0-15.0); WHITE BLOOD COUNT 6.6 x10^3/uL (4.8-10.8)
[2021-10-03 13:53] LABS: ALBUMIN 4.1 g/dL (3.2-5.5); ALBUMIN/GLOBULIN RATIO 1.3 (1.0-2.2); BILIRUBIN,TOTAL 0.3 mg/dL (0.2-1.0); CALCIUM 8.8 mg/dL (8.5-10.3); CREATININE 0.8 mg/dL (0.4-1.0); POTASSIUM 3.1 mmol/L (3.5-5.0); TOTAL PROTEIN 7.3 g/dL (6.7-8.2)
[2021-10-03 14:35] LABS: BILIRUBIN,URINE NEGATIVE (NEGATIVE); GLUCOSE, URINE (UA) NEGATIVE (NEGATIVE); KETONES,URINE (UA) NEGATIVE (NEGATIVE); LEUKOCYTE ESTERASE, URINE NEGATIVE (NEGATIVE); NITRITE,URINE NEGATIVE (NEGATIVE); OCCULT BLOOD,URINE NEGATIVE (NEGATIVE); PH,URINE 7.5 PH (5.0-7.5); PROTEIN,URINE NEGATIVE (NEGATIVE); UROBILINOGEN,URINE 0.2 (NORMAL) E.U./dL (NORMAL)
[2021-10-03 14:39] LABS: CLARITY,URINE CLEAR (CLEAR)
[2021-10-03] MEDS ORDERED: ONDANSETRON 4 MG/2 ML VIAL IVP STA (14:41)
--- NOTE | 2021-10-03 14:45 | ED Physician Documentation ---
History of Present Illness - Stated complaint Stated Complaint: RT SIDE PX - Chief complaint Chief Complaint: Abd Pain - Additonal information Additional information: 61-year-old female presents the emergency department for evaluation of 3 days right-sided low back pain that radiates to her anterior abdomen. She states that initially she was having some dysuria and because of this she has been drinking a lot of water in an attempt to flush her system. She is concerned that she could have a kidney or urinary infection. The pain hurts enough that at night she is sleeping on her left side unable to bear pain on the right. Some nausea no vomiting. No fevers. No pertinent past surgical history. She does have past medical history that includes hypertension as well as epilepsy well-controlled on antiepileptics. Positive tobacco use. Review of Systems Constitutional: denies: Fever, Chills Nose: reports: Reviewed and negative Throat: reports: Reviewed and negative Cardiac: reports: Reviewed and negative Respiratory: reports: Reviewed and negative GI: reports: Abdominal Pain, Nausea. 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, Breast cancer : Kidney stones HEENT: None Psych: Anxiety Musculoskeletal: None Derm: None - Past Surgical History Past Surgical History: Yes /DIGITAL CONTENT COORDINATOR: Hysterectomy - Present Medications Home Medications: Ambulatory Orders Medication Instructions Recorded Confirmed Hydroxyzine Pamoate 25 mg PO DAILY PRN 03/15/16 07/19/21 Clindamycin [Cleocin] 300 mg PO TID 6 Days #18 cap 07/19/21 Doxepin [SINEquan] 25 mg PO QPM 07/19/21 07/19/21 Gabapentin [Neurontin] 300 mg PO BID 07/19/21 07/19/21 Levetiracetam [Keppra] 500 mg PO BID 07/19/21 07/19/21 Oxycodone HCl/Acetaminophen 1 each PO Q6H PRN #15 tablet 07/19/21 [Percocet 5-325 mg Tablet] Phenytoin [Dilantin] 300 mg PO DAILY 07/19/21 07/19/21 Topiramate [Topamax] 150 mg PO BID 07/19/21 07/19/21 Venlafaxine HCl 150 mg PO DAILY 07/19/21 07/19/21 hydroCHLOROthiazide [Hydrodiuril] 12.5 mg PO DAILY 07/19/21 07/19/21 HYDROcod/ACETAM 5/325 [[place] 5/325] 1 tab PO BID PRN #10 tablet 10/03/21 Ibuprofen [Motrin] 600 mg PO Q6H PRN #30 tab 10/03/21 - Allergies Allergies/Adverse Reactions: Allergies Allergy/AdvReac Type Severity Reaction Status Date / Time codeine Allergy Rash Verified 10/03/21 13:17 - Social History Does the pt smoke?: Yes Smoking Status: Current every day smoker Does the pt drink ETOH?: No Does the pt have substance abuse?: No - Immunizations Immunizations are current?: Yes Immunizations: TDAP >10years/unknown PD ED PE NORMAL - General General: Alert and oriented X 3, No acute distress, Well developed/nourished - HEENT HEENT: Atraumatic, PERRL - Neck Neck: Supple, no meningeal sign, No adenopathy - Cardiac Cardiac: RRR, No murmur, No gallop - Respiratory Respiratory: No respiratory distress, Clear bilaterally - Abdomen Abdomen: Normal bowel sounds, Soft, Non tender (Tenderness mostly on the left flank and right low back. Nonfocal. Negative McBurney's. Negative Laura's.) - Back Back: No CVA TTP, No spinal TTP - Derm Derm: Normal color, Warm and dry, No rash - Extremities Extremities: No deformity, No tenderness to palpate, Normal ROM s pain - Neuro Neuro: Alert and oriented X 3, sales broker 2-12 intact Eye Opening: Spontaneous Motor: Obeys Commands Verbal: Oriented GCS Score: 15 - Psych Psych: Normal mood Results - Vitals Vitals: Vital Signs - 24 hr 10/03/21 10/03/21 13:13 14:27 Temperature 36.4 C L Heart Rate 75 61 Respiratory 16 16 Rate Blood Pressure 132/91 H 118/79 O2 Saturation 98 97 Oxygen O2 Source Room air - Labs Labs: Laboratory Tests 10/03/21 10/03/21 10/03/21 13:27 13:27 14:05 WBC 6.6 RBC 4.54 Hgb 14.2 Hct 41.3 MCV 91.0 MCH 31.3 H MCHC 34.4 RDW 13.1 Plt Count 272 MPV 9.6 Neut # (Auto) 3.8 Lymph # (Auto) 2.1 [place] # (Auto) 0.4 Eos # (Auto) 0.2 Baso # (Auto) 0.1 Absolute Nucleated RBC 0.00 Nucleated RBC % 0.0 Sodium 136 Potassium 3.1 L Chloride 99 L Carbon Dioxide 26 Anion Gap 11.0 BUN 13 Creatinine 0.8 Estimated GFR (MDRD) 73 L Glucose 91 Calcium 8.8 Total Bilirubin 0.3 AST 17 ALT 15 Alkaline Phosphatase 132 H Total Protein 7.3 Albumin 4.1 Globulin 3.2 Albumin/Globulin Ratio 1.3 Lipase 65 H Urine Color LT. YELLOW Urine Clarity CLEAR Urine pH 7.5 Ur Specific [place] 1.010 Urine Protein NEGATIVE Urine Glucose (UA) NEGATIVE Urine Ketones NEGATIVE Urine Occult Blood NEGATIVE Urine Nitrite NEGATIVE Urine Bilirubin NEGATIVE Urine Urobilinogen 0.2 (NORMAL) Ur Leukocyte Esterase NEGATIVE Ur Microscopic Review NOT INDICATED Urine Culture Comments NOT INDICATED - Rads (name of study) CT abd Radiology: Final report received (Mild right renal prominence and mild right hydroureter without significant perinephric or periureteral stranding. No evidence of urolithiasis. Findings are nonspecific but may represent a passed stone. No stone in bladder. Normal appendix. No hepatic steatosis. Atherosclerosis.) PD MEDICAL DECISION MAKING - ED course Complexity details: reviewed results, re-evaluated patient, considered differential, d/w patient ED course: 61-year-old female with 3 days of right-sided renal pain. No fever some nausea but no vomiting. Screening labs are unremarkable with the exception of mild hypokalemia. She was repleted with 40 of potassium here in the ER. Urine shows no signs of infection. CT scan suggest some mild ureter swelling likely suggesting a passed renal stone. No obstruction. Patient is given IV fluids and Dilaudid here in the ER with good control of pain. Labs and CT imaging were discussed with patient. Advised to follow-up with primary to obtain referral to urology in the long-term. Limited prescription for [place]on and hydrocodone was sent. I am prescribing a short course of short-acting opioid pain medication for this patient. 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 I have discussed that the opioids are for short term therapy only, and will not be refilled from the ED. Departure - Departure Disposition: 01 Home, Self Care Clinical Impression: Right flank pain, Hypokalemia Condition: Stable Record reviewed to determine appropriate education?: Yes Instructions: ED Stone Renal W Colic Follow-Up: Frances Guillermo MD [Physician No Access] - Prescriptions: Ibuprofen [Motrin] 600 mg PO Q6H PRN #30 tab PRN Reason: Pain HYDROcod/ACETAM 5/325 [[place] 5/325] 1 tab PO BID PRN #10 tablet PRN Reason: Pain Comments: You are seen in the emergency department for 3 days of right-sided abdominal pain. Your screening labs including your blood count are all essentially normal. There is no infection in your urine. The only significant abnormality on your labs was a mildly low potassium. You were given an extra dose of potassium here in the ER. The CT scan of your abdomen did not show any appendicitis or obvious renal stones but it does suggest that there is some swelling of the ureter which is mild and means that you are likely passing a stone over the last 3 days. In general ibuprofen is the medication that is used to treat kidney or ureter pain. Take 600 mg with food. For severe pain a limited prescription for hydrocodone has been sent to the pharmacy. It is important that you schedule follow-up with a primary care doctor. You may benefit from referral to a urologist moving forward as this could be a recurrent problem. Return to the ER if you have fevers uncontrolled vomiting severe or different pain. I am prescribing a short course of narcotic pain medication for you. These are potentially dangerous and addictive medications that should be used carefully. These medications may constipate you. Take an zsul-lvj-cexrogz stool softener (docusate) twice daily with plenty of water while taking these medications. If you go 24 hours without a bowel movement, take pbhx-ayh-otkzozz miralax, per package instructions. Do not drink or drive while taking these medications. If you received narcotic or sedating medications while in the emergency department, do not drive for 24 hours. Store this medication in a safe, secure place and out of reach of children. It is a violation of federal law to give or sell this medication to another person or to use in a manner other than prescribed. The ED will not refill narcotic prescriptions, including prescriptions lost or stolen. To dispose of unwanted medications: 1. [facility] [address] in [place] has a medication drop box. They accept prescription medications (in pill form) Saturday through Saturday 9:00 a.m. to 5:00 p.m. 2. [facility] accepts prescription medications (in pill form only) for disposal year round. Call for more information. 3. Contact the [facility] for the next [facility] sponsored prescription drug collection event. , [phone], or [phone]; Note that many narcotic pain relievers also contain Tylenol/acetaminophen. Please ensure that your total dose of acetaminophen from all sources does not exceed 3 g (3000 mg) per day.
[2021-10-03] MEDS ORDERED: HYDROmorphone 1 MG/ML CARPUJECT IVP STA (14:47)
[2021-10-03] MEDS ORDERED: IOVERSOL 320 100 ML VIAL IVP ONE ×2 (14:52→16:24)
--- NOTE | 2021-10-03 16:39 | CT Report ---
PROCEDURE: Abdomen/Pelvis W INDICATIONS: right/left flank pain 3 days CONTRAST: IV CONTRAST: Optiray 320 ml: 100 PO CONTRAST: *NO PO CONTRAST TECHNIQUE: After the administration of weight appropriate dose of intravenous contrast, 5 mm thick sections acqu ired from the diaphragms to the symphysis. 5 mm thick coronal and sagittal reformats were acquired. For radiation dose reduction, the following was used: automated exposure control, adjustment of mA and/or kV according to patient size. COMPARISON: None. FINDINGS: Image quality: Excellent. ABDOMEN: Lung bases: Moderate bibasilar atelectasis. Heart size is normal. Solid organs: Liver and spleen are normal in size and enhancement. Diffuse hypoattenuation of the l iver relative to the spleen compatible with hepatic steatosis. Gallbladder is unremarkable. Biliary system is non dilated. Pancreas enhances normally. No adrenal nodules. Left kidney demonstrates nor mal size and enhancement, without hydronephrosis. There is mild prominence of the right renal pelvis . No right-sided hydronephrosis. No evidence for nephrolithiasis in the presence of intravenous contr ast. There is mild prominence of the right ureter without significant periureteral or right perinephr ic stranding. No ureteral stones seen. No urinary bladder stones identified. Small cortical hypodensi ties are noted in the left kidney which are too small to characterize but likely represent cysts. Peritoneum and bowel: Bowel loops demonstrate normal wall thickness and caliber. No free fluid or a ir. Normal appendix. Nodes and vessels: No retroperitoneal or mesenteric adenopathy by size criteria. Aorta and inferior vena cava are normal in size. Moderate atherosclerosis of the abdominal aorta and iliac vessels wit h scattered intramural hematomas identified. No periaortic inflammatory changes. Miscellaneous: No ventral hernias. PELVIS: Genitourinary: Bladder wall thickness is normal. Miscellaneous: No inguinal hernias or adenopathy. Bones: No suspicious bony lesions. No acute vertebral body compression fractures. IMPRESSION: 1. Mild right renal pelvic prominence and mild right hydroureter without significant right perinephri c or periureteral stranding. No evidence for urolithiasis. Findings are nonspecific and may represent a recently passed stone. No urinary bladder stone identified. 2. Normal appendix. 3. Hepatic steatosis. 4. Atherosclerosis. Reviewed by: Domingo Barajas MD on 10/03/2021 4:37 PM PST Approved by: Domingo Barajas MD on 10/03/2021 4:37 PM PST Station ID: [id number]
[2021-10-03] MEDS ORDERED: POTASSIUM CHLORIDE 20 MEQ TABLET PO STA (17:27)
[2021-10-03 17:42] VITALS: BP 132/85
== END 2021-10-03 17:50 | disposition home or self-care (01) ==
LOC: ED 13:09
DX: R10.31 Right lower quadrant pain (principal); E87.6 Hypokalemia; I10 Essential (primary) hypertension; F17.200 Nicotine dependence, unspecified, uncomplicated
CPT/HCPCS: 36415; 74177; 80053; 81003; 83690; 85025; 96374; 96375; 99284; A9270; J1170; Q9967; 81001; 87086

== ENCOUNTER 2021-12-24 16:18 | Emergency (ER) | payer MEDICARE, MEDICAID ==
[2021-12-24] MEDS ORDERED: SODIUM CHLORIDE 0.9% 1,000 ML IV STA (16:58)
--- OUTSIDE RECORDS SUMMARY | 2021-12-24 16:59 | EXTERNAL MEDICAL SUMMARY RPT | Continuity of Care Document ---
:1960 Author Organization [facility] Address [address] [place] [address] Phone Care Team Providers Name Role Phone MistryMelina Unavailable Unavailable Allergies No information. Encounters No information. Medications No information. Problems date description facility [phone] Contact with and (suspected) exposure t o [address] Results No information.
[2021-12-24] MEDS ORDERED: CLOPIDOGREL 75 MG TABLET PO STA (17:05)
--- NOTE | 2021-12-24 17:15 | ED Physician Documentation ---
PD HPI HEADACHE - Stated complaint Stated Complaint: HEAD PX/METALIC TASTE IN MOUTH - Chief complaint Chief Complaint: Neuro - History obtained from History obtained from: Patient, Family - History of Present Illness Timing - onset: How many days ago (2) Timing - onset during: Rest Timing - duration: Days (2) Timing - details: Gradual onset, Still present Worst headache ever?: Worst headache ever? Location: Front Quality: Throbbing Associated symptoms: Nausea. No: Fever, Stiff neck, Vomiting, Weakness, Numbness, Syncope, Seizure, Eye pain, Vision changes Improved by: Rest, Dark room, Quiet Worsened by: Light, Noise, Moving Contributing factors: No: Anticoagulated, Possible carbon monoxide - Additional information Additional information: 61 y/o female with a history of siezure disorder has had a headache with nausea and epigastric pain. She states she feels like she had a seizure last night. She reports she has been compliant with her medications and then is not able to name them. She indicates she is on plavix after getting stents in her legs and she is out of this medication for 4 days. Review of Systems Constitutional: denies: Fever Eyes: denies: Decreased vision Ears: denies: Ear pain Nose: denies: Congestion Throat: denies: Sore throat Cardiac: denies: Chest pain / pressure, Palpitations Respiratory: denies: Dyspnea, Cough GI: reports: Abdominal Pain, Nausea. 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, Breast cancer : Kidney stones HEENT: None Psych: Anxiety Musculoskeletal: None Derm: None - Past Surgical History Past Surgical History: Yes /CASH SPECIALIST: Hysterectomy - Present Medications Home Medications: Ambulatory Orders Medication Instructions Recorded Confirmed Hydroxyzine Pamoate 25 mg PO DAILY PRN 03/15/16 07/19/21 Clindamycin [Cleocin] 300 mg PO TID 6 Days #18 cap 07/19/21 Doxepin [SINEquan] 25 mg PO QPM 07/19/21 07/19/21 Gabapentin [Neurontin] 300 mg PO BID 07/19/21 07/19/21 Levetiracetam [Keppra] 500 mg PO BID 07/19/21 07/19/21 Oxycodone HCl/Acetaminophen 1 each PO Q6H PRN #15 tablet 07/19/21 [Percocet 5-325 mg Tablet] Phenytoin [Dilantin] 300 mg PO DAILY 07/19/21 07/19/21 Topiramate [Topamax] 150 mg PO BID 07/19/21 07/19/21 Venlafaxine HCl 150 mg PO DAILY 07/19/21 07/19/21 hydroCHLOROthiazide [Hydrodiuril] 12.5 mg PO DAILY 07/19/21 07/19/21 HYDROcod/ACETAM 5/325 [[place] 5/325] 1 tab PO BID PRN #10 tablet 10/03/21 Ibuprofen [Motrin] 600 mg PO Q6H PRN #30 tab 10/03/21 Sucralfate [Carafate] 1 gm PO ACHS #60 tablet 12/24/21 - Allergies Allergies/Adverse Reactions: Allergies Allergy/AdvReac Type Severity Reaction Status Date / Time codeine Allergy Rash Verified 12/24/21 16:28 - Social History Does the pt smoke?: Yes Smoking Status: Current every day smoker Does the pt drink ETOH?: No Does the pt have substance abuse?: No - Immunizations Immunizations are current?: Yes Immunizations: TDAP >10years/unknown PD ED PE NORMAL - Vitals Vital signs reviewed: Yes - General General: Alert and oriented X 3, No acute distress, Well developed/nourished, Other (smells heavily of tobacco) - HEENT HEENT: Atraumatic, PERRL, EOMI, Ears normal, Pharynx benign, Other (dry mucous membranes ) - Neck Neck: Supple, no meningeal sign, No bony TTP - Cardiac Cardiac: RRR, No murmur - Respiratory Respiratory: No respiratory distress, Other (focal wheeze in right mid lung field clears with deep breathing ) - Abdomen Abdomen: Normal bowel sounds, Soft, Non tender, Non distended, No organomegaly - Back Back: No CVA TTP, No spinal TTP - Derm Derm: Normal color, Warm and dry, No rash - Extremities Extremities: No deformity, No edema - Neuro Neuro: Alert and oriented X 3, floor care technician 2-12 intact, No motor deficit, No sensory deficit, Normal speech Eye Opening: Spontaneous Motor: Obeys Commands Verbal: Oriented GCS Score: 15 - Psych Psych: Normal mood, Normal affect Results - Vitals Vitals: Vital Signs - 24 hr 12/24/21 12/24/21 12/24/21 16:28 18:31 19:01 Temperature 37.2 C 36.5 C Heart Rate 66 65 61 Respiratory 18 13 12 Rate Blood Pressure 122/80 109/67 118/71 O2 Saturation 98 99 99 Oxygen O2 Source Room air - Labs Labs: Laboratory Tests 12/24/21 12/24/21 12/24/21 17:21 17:21 17:21 WBC 4.8 RBC 4.15 L Hgb 12.5 Hct 37.4 MCV 90.1 MCH 30.1 MCHC 33.4 RDW 13.2 Plt Count 228 MPV 9.9 Neut # (Auto) 2.9 Lymph # (Auto) 1.4 L [place] # (Auto) 0.3 Eos # (Auto) 0.0 Baso # (Auto) 0.1 Absolute Nucleated RBC 0.00 Nucleated RBC % 0.0 Sodium 140 Potassium 3.6 Chloride 106 Carbon Dioxide 26 Anion Gap 8.0 BUN 11 Creatinine 0.6 Estimated GFR (MDRD) 102 Glucose 107 H Lactic Acid 1.1 Calcium 9.3 Total Bilirubin 0.3 AST 19 ALT 20 Alkaline Phosphatase 119 Total Protein 6.9 Albumin 3.9 Globulin 3.0 Albumin/Globulin Ratio 1.3 Lipase 53 H Urine Color Urine Clarity Urine pH Ur Specific [place] Urine Protein Urine Glucose (UA) Urine Ketones Urine Occult Blood Urine Nitrite Urine Bilirubin Urine Urobilinogen Ur Leukocyte Esterase Ur Microscopic Review Urine Culture Comments Nasal Adenovirus (PCR) Nasal B. parapertussis DNA (PCR) Nasal Coronavir 229E PCR Nasal Coronavir HKU1 PCR Nasal Coronavir NL63 PCR Nasal Coronavir OC43 PCR Nasal Enterovir/Rhinovir PCR Nasal Influenza B PCR Nasal Influenza A PCR Nasal Parainfluen 1 PCR Nasal Parainfluen 2 PCR Nasal Parainfluen 3 PCR Nasal Parainfluen 4 PCR Nasal RSV (PCR) Nasal B.pertussis DNA PCR Nasal C.pneumoniae (PCR) Fred Human Metapneumo PCR Nasal M.pneumoniae (PCR) Nasal SARS-CoV-2 (PCR) Phenytoin 3.8 12/24/21 12/24/21 17:31 18:54 WBC RBC Hgb Hct MCV MCH MCHC RDW Plt Count MPV Neut # (Auto) Lymph # (Auto) [place] # (Auto) Eos # (Auto) Baso # (Auto) Absolute Nucleated RBC Nucleated RBC % Sodium Potassium Chloride Carbon Dioxide Anion Gap BUN Creatinine Estimated GFR (MDRD) Glucose Lactic Acid Calcium Total Bilirubin AST ALT Alkaline Phosphatase Total Protein Albumin Globulin Albumin/Globulin Ratio Lipase Urine Color YELLOW Urine Clarity CLEAR Urine pH 8.0 H Ur Specific [place] 1.010 Urine Protein NEGATIVE Urine Glucose (UA) NEGATIVE Urine Ketones NEGATIVE Urine Occult Blood NEGATIVE Urine Nitrite NEGATIVE Urine Bilirubin NEGATIVE Urine Urobilinogen 0.2 (NORMAL) Ur Leukocyte Esterase NEGATIVE Ur Microscopic Review NOT INDICATED Urine Culture Comments NOT INDICATED Nasal Adenovirus (PCR) NOT DETECTED Nasal B. parapertussis DNA (PCR) NOT DETECTED Nasal Coronavir 229E PCR NOT DETECTED Nasal Coronavir HKU1 PCR NOT DETECTED Nasal Coronavir NL63 PCR NOT DETECTED Nasal Coronavir OC43 PCR NOT DETECTED Nasal Enterovir/Rhinovir PCR NOT DETECTED Nasal Influenza B PCR NOT DETECTED Nasal Influenza A PCR NOT DETECTED Nasal Parainfluen 1 PCR NOT DETECTED Nasal Parainfluen 2 PCR NOT DETECTED Nasal Parainfluen 3 PCR NOT DETECTED Nasal Parainfluen 4 PCR NOT DETECTED Nasal RSV (PCR) NOT DETECTED Nasal B.pertussis DNA PCR NOT DETECTED Nasal C.pneumoniae (PCR) NOT DETECTED Fred Human Metapneumo PCR NOT DETECTED Nasal M.pneumoniae (PCR) NOT DETECTED Nasal SARS-CoV-2 (PCR) NOT DETECTED Phenytoin - Rads (name of study) [facility] Radiology: Prelim report reviewed (Impression: No intracranial hemorrhage is seen. No significant intracranial abnormality is seen. Cause of severe headache is not seen.), EMP read indepedently, See rad report Procedures - IVC sono (time) 1700 Bedside IVC sono: IVC measures (cm) (1.24), Dehydration (est 1 liter deficit) PD MEDICAL DECISION MAKING - ED course Complexity details: reviewed old records, reviewed results, re-evaluated patient, considered differential, d/w patient, d/w family ED course: 61 y/o female with seizure disorder has epigastric pain, a headache, low dilantin level and is dehydrated. She has recent stents in her legs and is out of her plavix. Here in the ED we have given her plavix, started an IV line and administered saline and she has responded to a GI cocktail of viscous lidocaine, mylanta and carafate. She is administered IV protonix in the ED as well as 300mg of dilantin. Her headache is treated with IV toradal. Patient has overall improvement and wants to go home. Departure - Departure Disposition: 01 Home, Self Care Clinical Impression: Dehydration Gastritis Qualifiers: Gastritis type: unspecified gastritis Chronicity: acute Gastritis bleeding: without bleeding Qualified Code(s): K29.00 - Acute gastritis without bleeding Condition: Stable Instructions: ED Gastritis, ED PUD Vs Gastritis Follow-Up: PRISCILLA ANDINO MD [Physician No Access] - Prescriptions: Sucralfate [Carafate] 1 gm PO ACHS #60 tablet Comments: Narcisa, today it looks like you were bit dehydrated when you arrived here and have some gastritis or an ulcer. For the ulcer treatment the recommendation is to use an [id number] medication to reduce the acid in your stomach such as Pepcid A/C(famotidine) or Nexium. In addition I have prescribed some Carafate which will aid in the healing of your stomach. I have E scribed this to Wili Solis in [place]. Discharge Date/Time: 12/24/21 19:11
--- NOTE | 2021-12-24 17:24 | CT Report ---
PROCEDURE: HEAD WO INDICATIONS: severe headache TECHNIQUE: Noncontrast 4.5 mm thick angled axial sections acquired from the foramen magnum to the vertex. For r adiation dose reduction, the following was used: automated exposure control, adjustment of mA and/or kV according to patient size. COMPARISON: 10/13/2020 FINDINGS: Image quality: There is streak artifact seen through the skull base. CSF spaces: Basal cisterns are patent. No extra-axial fluid collections. Ventricles are normal in size and shape. Brain: No midline shift. No intracranial masses or hemorrhage. Arevalo-white matter interface is norm al. Skull and face: Calvarium and visualized facial bones are intact, without suspicious lesions. Sinuses: Visualized sinuses and mastoids are clear. IMPRESSION: No intracranial hemorrhage is seen. No significant intracranial abnormality is seen. A cause of severe headache is not seen. Reviewed by: Neto Lundy MD on 12/24/2021 4:23 PM [facility]I Approved by: Neto Lundy MD on 12/24/2021 4:23 PM MAYI Station ID: [id number]
[2021-12-24 17:27] LABS: BASOPHILS # (AUTO) 0.1 10^3/uL (0.0-0.1); BASOPHILS % (AUTO) 1.5 %; EOSINOPHILS % (AUTO) 0.8 %; HCT - HEMATOCRIT 37.4 % (37.0-47.0); HGB - HEMOGLOBIN 12.5 g/dL (12.0-16.0); LYMPHOCYTES # (AUTO) 1.4 10^3/uL (1.5-3.5); LYMPHOCYTES % (AUTO) 29.7 %; MEAN CORPUSCULAR HEMOGLOBIN 30.1 pg (27.0-31.0); MEAN CORPUSCULAR HGB CONC 33.4 g/dL (32.0-36.0); MEAN CORPUSCULAR VOLUME 90.1 fL (81.0-99.0); MEAN PLATELET VOLUME 9.9 fL (7.9-10.8); MONOCYTES # (AUTO) 0.3 10^3/uL (0.0-1.0); MONOCYTES % (AUTO) 7.1 %; NEUTROPHILS # (AUTO) 2.9 10^3/uL (1.5-6.6); NEUTROPHILS % (AUTO) 60.7 %; PLT - PLATELET COUNT 228 10^3/uL (130-450); RED BLOOD COUNT 4.15 10^6/uL (4.20-5.40); RED CELL DISTRIBUTION WIDTH 13.2 % (12.0-15.0); WHITE BLOOD COUNT 4.8 x10^3/uL (4.8-10.8)
[2021-12-24] MEDS ORDERED: LIDOCAINE VISCOUS 2% 15 ML UDC MM STA (17:30)
[2021-12-24] MEDS ORDERED: MAG HYDROX/AL HYDROX/SIMETH 30 ML UDC PO STA (17:30)
[2021-12-24] MEDS ORDERED: SUCRALFATE 1 GM/10 ML UDC PO STA (17:30)
[2021-12-24 17:42] LABS: ALBUMIN 3.9 g/dL (3.2-5.5); ALBUMIN/GLOBULIN RATIO 1.3 (1.0-2.2); BILIRUBIN,TOTAL 0.3 mg/dL (0.2-1.0); CALCIUM 9.3 mg/dL (8.5-10.3); CREATININE 0.6 mg/dL (0.4-1.0); PHENYTOIN (DILANTIN) 3.8 ug/mL; POTASSIUM 3.6 mmol/L (3.5-5.0); TOTAL PROTEIN 6.9 g/dL (6.7-8.2)
[2021-12-24] MEDS ORDERED: PHENYTOIN 100 MG/2 ML VIAL IVP STA (17:51)
[2021-12-24] MEDS ORDERED: KETOROLAC 30 MG/ML VIAL IVP STA (18:01)
[2021-12-24 18:48] LABS: B. PARAPERTUSSIS- RESP PCR PAN NOT DETECTED; B. PERTUSSIS- RESP PCR PANEL NOT DETECTED; C. PNEUMONIAE- RESP PCR PANEL NOT DETECTED; CORONAVIRUS 229E-RESP PCR NOT DETECTED; CORONAVIRUS HKU1-RESP PCR NOT DETECTED; CORONAVIRUS NL63-RESP PCR NOT DETECTED; CORONAVIRUS OC43-RESP PCR NOT DETECTED; HUMAN METAPNEUMOVIRUS NOT DETECTED; INFLUENZA A- RESP PCR PANEL NOT DETECTED; INFLUENZA B - RESP PCR PANEL NOT DETECTED; M. PNEUMONIAE- RESP PCR PANEL NOT DETECTED; PARAINFLUENZA VIRUS 1 NOT DETECTED; PARAINFLUENZA VIRUS 2 NOT DETECTED; PARAINFLUENZA VIRUS 3 NOT DETECTED; PARAINFLUENZA VIRUS 4 NOT DETECTED; RHINOVIRUS/ENTEROVIRUS NOT DETECTED; RSV- RESP PCR PANEL NOT DETECTED; SARS-CoV-2 -RESP PCR PANEL NOT DETECTED
[2021-12-24 19:02] VITALS: BP 118/71
[2021-12-24 19:03] LABS: BILIRUBIN,URINE NEGATIVE (NEGATIVE); GLUCOSE, URINE (UA) NEGATIVE (NEGATIVE); KETONES,URINE (UA) NEGATIVE (NEGATIVE); LEUKOCYTE ESTERASE, URINE NEGATIVE (NEGATIVE); NITRITE,URINE NEGATIVE (NEGATIVE); OCCULT BLOOD,URINE NEGATIVE (NEGATIVE); PROTEIN,URINE NEGATIVE (NEGATIVE); UROBILINOGEN,URINE 0.2 (NORMAL) E.U./dL (NORMAL)
[2021-12-24 19:05] LABS: CLARITY,URINE CLEAR (CLEAR)
== END 2021-12-24 19:11 | disposition home or self-care (01) ==
LOC: ED 16:18
DX: E86.0 Dehydration (principal); K29.00 Acute gastritis without bleeding; I10 Essential (primary) hypertension; F17.200 Nicotine dependence, unspecified, uncomplicated
CPT/HCPCS: 36415; 70450; 80053; 80177; 80185; 81003; 83605; 83690; 85025; 87633; 96361; 96374; 96375; 99284; A9270; 81001; 87086

== ENCOUNTER 2022-01-19 18:21 | Emergency (ER) | payer MEDICARE, MEDICAID ==
--- NOTE | 2022-01-19 19:09 | XRAY Report ---
PROCEDURE: Nasal Bones INDICATIONS: Facial injury TECHNIQUE: 2 views of the nasal bones acquired. COMPARISON: None FINDINGS: Bones: No fractures or dislocations. Nasal septum is midline. Normal nasociliary nerve grooves are noted. Soft tissues: No suspicious soft tissue calcifications. IMPRESSION: No gross acute nasal bone fracture. Nasal septum is midline. Reviewed by: Rubio Soria MD on 01/19/2022 7:08 PM PDT Approved by: Rubio Soria MD on 01/19/2022 7:08 PM PDT Station ID: [id number]
--- NOTE | 2022-01-19 19:29 | ED Physician Documentation ---
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 Patient c/o nasal pain and swelling, denies LOC. Review of Systems Eyes: reports: Reviewed and negative Nose: reports: Other (swelling, pain). 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: Hysterectomy - Present Medications Home Medications: Ambulatory Orders Medication Instructions Recorded Confirmed Hydroxyzine Pamoate 25 mg PO DAILY PRN 03/15/16 01/19/22 Clindamycin [Cleocin] 300 mg PO TID 6 Days #18 cap 07/19/21 01/19/22 Doxepin [SINEquan] 25 mg PO QPM 07/19/21 01/19/22 Gabapentin [Neurontin] 300 mg PO BID 07/19/21 01/19/22 Levetiracetam [Keppra] 500 mg PO BID 07/19/21 01/19/22 Oxycodone HCl/Acetaminophen 1 each PO Q6H PRN #15 tablet 07/19/21 01/19/22 [Percocet 5-325 mg Tablet] Phenytoin [Dilantin] 300 mg PO DAILY 07/19/21 01/19/22 Topiramate [Topamax] 150 mg PO BID 07/19/21 01/19/22 Venlafaxine HCl 150 mg PO DAILY 07/19/21 01/19/22 hydroCHLOROthiazide [Hydrodiuril] 12.5 mg PO DAILY 07/19/21 01/19/22 HYDROcod/ACETAM 5/325 [[place] 5/325] 1 tab PO BID PRN #10 tablet 10/03/21 01/19/22 Ibuprofen [Motrin] 600 mg PO Q6H PRN #30 tab 10/03/21 01/19/22 Sucralfate [Carafate] 1 gm PO ACHS #60 tablet 12/24/21 01/19/22 - Allergies Allergies/Adverse Reactions: Allergies Allergy/AdvReac Type Severity Reaction Status Date / Time codeine Allergy Rash Verified 01/19/22 18:28 - Social History Does the pt smoke?: Yes Smoking Status: Current every day smoker Does the pt drink ETOH?: No Does the pt have substance abuse?: No - Immunizations Immunizations are current?: Yes Immunizations: TDAP >10years/unknown PD ED PE NORMAL - Vitals Vital signs reviewed: Yes - General General: Alert and oriented X 3, No acute distress, Well developed/nourished - HEENT HEENT: Moist mucous membranes, Pharynx benign, Other (no other facial tenderness except nose (no sinus, maxillary, or zygomatic tenderness)) PD ED PE EXPANDED - HEENT HEENT: Other (mild nasal swelling, no bony tenderness nor gross bony deformity (bony portion of nose appears midline). there is tenderness of the cartilage. no epistaxis, no septal hematoma either nare) Results - Vitals Vitals: Oxygen O2 Source Room air - Rads (name of study) xrays nasal bones Radiology: Prelim report reviewed, See rad report PD MEDICAL DECISION MAKING - ED course Complexity details: reviewed results, re-evaluated patient, considered differential, d/w patient ED course: sustained blunt injury to nose earlier tonight, plain film nasal xrays are without gross abnormality. Patient feels that the nose is crooked. I advised her to f/u with ENT or OMFS within 5 days unless she finds that when the swelling subsides she can both breathe easily through both nares and the nose appears normal for her (I explained that sometimes there is a disparity of swelling rather than actual nasal bone displacement causing the initial "crooked" appearance, but that if there is indeed a deformity, she can see either of those specialists to discuss options for repair) Departure - Departure Disposition: Home, Self Care Clinical Impression: Contusion of nose Qualifiers: Encounter type: initial encounter Qualified Code(s): S00.33XA - Contusion of nose, initial encounter Condition: Good Instructions: ED Contusion Nasal Comments: As we discussed, the xrays do not show any obvious evidence of nasal fracture and the nasal septum appears midline (does not appear displaced to either side). It is still possible you have a nasal fracture, but the more subtle breaks can be difficult to detect on xrays if they have not significantly displaced to one side of the other. Fortunately, most non-displaced nasal fractures heal without need specific treatment. As we discussed, the appearance of a "crooked nose" after such an injury can sometimes be due to swelling that is more on one side than the other. As the swelling goes down over the next several days, you can reassess 1) if you still feel that your nose is deformed and 2) if you are still having difficulty breathing through your nose. You should follow up with a specialist (such as ENT or maxillofacial surgeon); this will likely require a referral from your insurance provider, which might need to come from your primary care provider. Discharge Date/Time: 01/19/22 19:58
[2022-01-19 19:59] VITALS: BP 126/66
== END 2022-01-19 19:58 | disposition home or self-care (01) ==
LOC: ED 18:21
DX: S00.33XA Contusion of nose, initial encounter (principal); W54.1XXA Struck by dog, initial encounter; Y92.039 Unspecified place in apartment as the place of occurrence of the external cause; I10 Essential (primary) hypertension; F17.200 Nicotine dependence, unspecified, uncomplicated
CPT/HCPCS: 99282; 99283

== ENCOUNTER 2022-02-09 18:40 | Emergency (ER) | payer MEDICARE, MEDICAID ==
[2022-02-09 21:23] LABS: BASOPHILS # (AUTO) 0.1 10^3/uL (0.0-0.1); BASOPHILS % (AUTO) 1.8 %; EOSINOPHILS # (AUTO) 0.1 10^3/uL (0.0-0.7); EOSINOPHILS % (AUTO) 2.3 %; HGB - HEMOGLOBIN 13.5 g/dL (12.0-16.0); LYMPHOCYTES # (AUTO) 2.2 10^3/uL (1.5-3.5); LYMPHOCYTES % (AUTO) 38.8 %; MEAN CORPUSCULAR HGB CONC 34.6 g/dL (32.0-36.0); MEAN CORPUSCULAR VOLUME 89.7 fL (81.0-99.0); MEAN PLATELET VOLUME 10.3 fL (7.9-10.8); MONOCYTES # (AUTO) 0.4 10^3/uL (0.0-1.0); MONOCYTES % (AUTO) 7.8 %; NEUTROPHILS # (AUTO) 2.8 10^3/uL (1.5-6.6); NEUTROPHILS % (AUTO) 49.1 %; PLT - PLATELET COUNT 230 10^3/uL (130-450); RED BLOOD COUNT 4.35 10^6/uL (4.20-5.40); WHITE BLOOD COUNT 5.7 x10^3/uL (4.8-10.8)
[2022-02-09 21:30] LABS: ALBUMIN 3.9 g/dL (3.2-5.5); ALBUMIN/GLOBULIN RATIO 1.2 (1.0-2.2); BILIRUBIN,TOTAL 0.2 mg/dL (0.2-1.0); CALCIUM 9.7 mg/dL (8.5-10.3); CREATININE 0.7 mg/dL (0.4-1.0); POTASSIUM 3.5 mmol/L (3.5-5.0); TOTAL PROTEIN 7.1 g/dL (6.7-8.2)
[2022-02-10] LABS: BILIRUBIN,URINE NEGATIVE (NEGATIVE); GLUCOSE, URINE (UA) NEGATIVE (NEGATIVE); KETONES,URINE (UA) NEGATIVE (NEGATIVE); LEUKOCYTE ESTERASE, URINE NEGATIVE (NEGATIVE); NITRITE,URINE NEGATIVE (NEGATIVE); OCCULT BLOOD,URINE NEGATIVE (NEGATIVE); PROTEIN,URINE NEGATIVE (NEGATIVE); UROBILINOGEN,URINE 0.2 (NORMAL) E.U./dL (NORMAL)
[2022-02-10 00:05] LABS: CLARITY,URINE CLEAR (CLEAR)
[2022-02-10] MEDS ORDERED: SODIUM CHLORIDE 0.9% 1,000 ML IV STA (00:20)
[2022-02-10] MEDS ORDERED: KETOROLAC 30 MG/ML VIAL IVP STA (00:29)
[2022-02-10 01:46] LABS: RAPID STREP SCREEN Negative (Negative)
--- NOTE | 2022-02-10 02:00 | ED Physician Documentation ---
History of Present Illness - Stated complaint Stated Complaint: LOW BACK/ABD PAIN/WEAKNESS - Chief complaint Chief Complaint: General - Additonal information Additional information: Patient is a 61-year-old female with seizure disorder presenting for evaluation of lightheadedness, fatigue and bruising on extremities. Patient reports her symptoms of been present for the last 3 to 4 days. She reports fasting for nearly 2 weeks and trying to abstain from food and only do liquids for "presybeterian reasons".She has been eating again the last several days. However she has been feeling lightheaded and weak. She denies any recent seizure act ivity. She denies headache to me. She does report having a sore throat. She denies chest pain or difficulty breathing. She has also noted various bruising all over her body. She denies any trauma. She is on Plavix but denies striking her extremities on anything.She denies bleeding gums or blood in her stools. Review of Systems Constitutional: denies: Fever Nose: denies: Congestion Throat: reports: Sore throat Cardiac: denies: Chest pain / pressure, Palpitations Respiratory: denies: Dyspnea, Cough GI: denies: Abdominal Pain, Nausea, Vomiting : denies: Dysuria Skin: reports: Other (Contusions) Musculoskeletal: denies: Neck pain, Back pain, Extremity pain Neurologic: reports: Generalized weakness. 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, Breast cancer : Kidney stones HEENT: None Psych: Anxiety Musculoskeletal: None Derm: None - Past Surgical History Past Surgical History: Yes /BENCH INSPECTOR: Hysterectomy - Present Medications Home Medications: Ambulatory Orders Medication Instructions Recorded Confirmed Hydroxyzine Pamoate 25 mg PO DAILY PRN 03/15/16 01/19/22 Clindamycin [Cleocin] 300 mg PO TID 6 Days #18 cap 07/19/21 01/19/22 Doxepin [SINEquan] 25 mg PO QPM 07/19/21 01/19/22 Gabapentin [Neurontin] 300 mg PO BID 07/19/21 01/19/22 Levetiracetam [Keppra] 500 mg PO BID 07/19/21 01/19/22 Oxycodone HCl/Acetaminophen 1 each PO Q6H PRN #15 tablet 07/19/21 01/19/22 [Percocet 5-325 mg Tablet] Phenytoin [Dilantin] 300 mg PO DAILY 07/19/21 01/19/22 Topiramate [Topamax] 150 mg PO BID 07/19/21 01/19/22 Venlafaxine HCl 150 mg PO DAILY 07/19/21 01/19/22 hydroCHLOROthiazide [Hydrodiuril] 12.5 mg PO DAILY 07/19/21 01/19/22 HYDROcod/ACETAM 5/325 [[place] 5/325] 1 tab PO BID PRN #10 tablet 10/03/21 01/19/22 Ibuprofen [Motrin] 600 mg PO Q6H PRN #30 tab 10/03/21 01/19/22 Sucralfate [Carafate] 1 gm PO ACHS #60 tablet 12/24/21 01/19/22 - Allergies Allergies/Adverse Reactions: Allergies Allergy/AdvReac Type Severity Reaction Status Date / Time codeine Allergy Rash Verified 02/09/22 18:56 - Social History Does the pt smoke?: Yes Smoking Status: Current every day smoker Does the pt drink ETOH?: No Does the pt have substance abuse?: No - Immunizations Immunizations are current?: Yes Immunizations: TDAP >10years/unknown PD ED PE NORMAL - General General: Alert and oriented X 3, No acute distress, Well developed/nourished - HEENT HEENT: Atraumatic, PERRL, EOMI, Moist mucous membranes, Pharynx benign (No oral lesions, exudate or swelling) - Neck Neck: Supple, no meningeal sign - Cardiac Cardiac: RRR, No murmur, Strong equal pulses - Respiratory Respiratory: No respiratory distress, Clear bilaterally - Abdomen Abdomen: Normal bowel sounds, Soft, Non tender, Non distended - Back Back: No CVA TTP - Derm Derm: Warm and dry, Other (Scattered bruising to bilateral upper and lower extremities, upper extremity bruises are brown to yellow, lower extremity bruises are larger and darker purple in color, no bony tenderness,) - Extremities Extremities: Normal ROM s pain, No edema, No calf tenderness / cord - Neuro Neuro: Alert and oriented X 3, 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 No: ST elevation c/w ischemia - Labs Labs: Laboratory Tests 02/09/22 02/09/22 02/09/22 00:25 21:10 21:10 WBC 5.7 RBC 4.35 Hgb 13.5 Hct 39.0 MCV 89.7 MCH 31.0 MCHC 34.6 RDW 13.0 Plt Count 230 MPV 10.3 Neut # (Auto) 2.8 Lymph # (Auto) 2.2 [place] # (Auto) 0.4 Eos # (Auto) 0.1 Baso # (Auto) 0.1 Absolute Nucleated RBC 0.00 Nucleated RBC % 0.0 Sodium 143 Potassium 3.5 Chloride 108 Carbon Dioxide 25 Anion Gap 10.0 BUN 12 Creatinine 0.7 Estimated GFR (MDRD) 86 L Glucose 122 H Calcium 9.7 Total Bilirubin 0.2 AST 17 ALT 15 Alkaline Phosphatase 120 Troponin I High Sens Total Protein 7.1 Albumin 3.9 Globulin 3.2 Albumin/Globulin Ratio 1.2 Lipase 59 H Urine Color Urine Clarity Urine pH Ur Specific [place] Urine Protein Urine Glucose (UA) Urine Ketones Urine Occult Blood Urine Nitrite Urine Bilirubin Urine Urobilinogen Ur Leukocyte Esterase Ur Microscopic Review Urine Culture Comments Group A Strep Rapid Negative 02/09/22 02/09/22 21:10 22:36 WBC RBC Hgb Hct MCV MCH MCHC RDW Plt Count MPV Neut # (Auto) Lymph # (Auto) [place] # (Auto) Eos # (Auto) Baso # (Auto) Absolute Nucleated RBC Nucleated RBC % Sodium Potassium Chloride Carbon Dioxide Anion Gap BUN Creatinine Estimated GFR (MDRD) Glucose Calcium Total Bilirubin AST ALT Alkaline Phosphatase Troponin I High Sens 5.6 Total Protein Albumin Globulin Albumin/Globulin Ratio Lipase Urine Color YELLOW Urine Clarity CLEAR Urine pH 7.0 Ur Specific [place] 1.010 Urine Protein NEGATIVE Urine Glucose (UA) NEGATIVE Urine Ketones NEGATIVE Urine Occult Blood NEGATIVE Urine Nitrite NEGATIVE Urine Bilirubin NEGATIVE Urine Urobilinogen 0.2 (NORMAL) Ur Leukocyte Esterase NEGATIVE Ur Microscopic Review NOT INDICATED Urine Culture Comments NOT INDICATED Group A Strep Rapid PD MEDICAL DECISION MAKING - ED course Complexity details: reviewed results, re-evaluated patient, d/w patient ED course: Patient presenting for evaluation of lightheadedness, sore throat and scattered bruising. Her neuro exam is normal and she is ambulatory without difficulty.No history of seizure activity and no seizures witnessed in ED. Labs obtained without any abnormality including normal electrolytes, hemoglobin and platelets. Patient is in a sinus rhythm with negative high-sensitivity troponin. Patient does feel better after receiving IV fluids. She did recently engage in a 2- week fast where she was trying to abstain from solid food.She was encouraged to hydrate and eat properly. She is also aware of need for follow-up with her primary care doctor. Departure - Departure Disposition: 01 Home, Self Care Clinical Impression: Lightheadedness, Abnormal bruising Condition: Stable Instructions: Bruises Contusions, ED Weakness [facility] Comments: You were evaluated for feelings of dizziness and lightheadedness. Your lab work was reassuring with no signs of anemia or low platelets. Your electrolytes were also normal. Your symptoms could be related to dehydration given your recent fast. Please make sure you stay well-hydrated the next several days with drinking water as well as eating's frequent meals through the day. The exact cause of bruising is also unclear. Please also follow-up with your primary care doctor.If you have any worsening symptoms such as headache, new pain, weakness on one side or any concerns please return to the emergency department. Discharge Date/Time: 02/10/22 02:30
[2022-02-10 02:57] VITALS: BP 118/68
== END 2022-02-10 02:30 | disposition home or self-care (01) ==
LOC: ED 18:40
DX: R42 Dizziness and giddiness (principal); R23.3 Spontaneous ecchymoses; I10 Essential (primary) hypertension; F17.200 Nicotine dependence, unspecified, uncomplicated
CPT/HCPCS: 36415; 80053; 81001; 81003; 83690; 84484; 85025; 87070; 87086; 87430; 93005; 96374; 99282

== ENCOUNTER 2022-04-09 15:52 | Emergency (ER) | payer MEDICARE, MEDICAID ==
[2022-04-09] MEDS ORDERED: PROMETHAZINE INJ 25 MG in SODIUM CHLORIDE 0.9% 50 ML IV STA (16:12)
[2022-04-09] MEDS ORDERED: SODIUM CHLORIDE 0.9% 1,000 ML IV STA ×2 (16:12)
[2022-04-09] MEDS ORDERED: PANTOPRAZOLE 40 MG VIAL IVP STA (16:12)
[2022-04-09] MEDS ORDERED: MORPHINE 2 MG/ML CARPUJECT IVP STA ×2 (16:12→17:47)
--- NOTE | 2022-04-09 16:13 | ED Physician Documentation ---
History of Present Illness - Stated complaint Stated Complaint: ABD PX - Chief complaint Chief Complaint: Abd Pain - History obtained from History obtained from: Patient - History of Present Illness Timing: Today Pain level max: 5 Pain level now: 5 - Additonal information Additional information: Patient is a 61-year-old female who comes into the emergency department accompanied by her today. She states that she developed abdominal pain approximately 1 hour prior to arrival with vomiting. She states she has a history of gastric ulcers and this feels similar. States there was a small amount of blood in the emesis. Denies any history of alcoholism or cirrhosis or varices. She states she used to be on medication for ulcers but is not anymore. She states she does drink coffee regularly. No diarrhea or constipation. No urinary symptoms. No fevers. No chills. No recent travel. 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, Breast cancer : Kidney stones HEENT: None Psych: Anxiety Musculoskeletal: None Derm: None - Past Surgical History Past Surgical History: Yes /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: Hysterectomy - Present Medications Home Medications: Ambulatory Orders Medication Instructions Recorded Confirmed Hydroxyzine Pamoate 25 mg PO DAILY PRN 03/15/16 01/19/22 Clindamycin [Cleocin] 300 mg PO TID 6 Days #18 cap 07/19/21 01/19/22 Doxepin [SINEquan] 25 mg PO QPM 07/19/21 01/19/22 Gabapentin [Neurontin] 300 mg PO BID 07/19/21 01/19/22 Levetiracetam [Keppra] 500 mg PO BID 07/19/21 01/19/22 Oxycodone HCl/Acetaminophen 1 each PO Q6H PRN #15 tablet 07/19/21 01/19/22 [Percocet 5-325 mg Tablet] Phenytoin [Dilantin] 300 mg PO DAILY 07/19/21 01/19/22 Topiramate [Topamax] 150 mg PO BID 07/19/21 01/19/22 Venlafaxine HCl 150 mg PO DAILY 07/19/21 01/19/22 hydroCHLOROthiazide [Hydrodiuril] 12.5 mg PO DAILY 07/19/21 01/19/22 HYDROcod/ACETAM 5/325 [[place] 5/325] 1 tab PO BID PRN #10 tablet 10/03/21 01/19/22 Ibuprofen [Motrin] 600 mg PO Q6H PRN #30 tab 10/03/21 01/19/22 Sucralfate [Carafate] 1 gm PO ACHS #60 tablet 12/24/21 01/19/22 Esomeprazole Magnesium [Nexium] 40 mg PO DAILY #30 cap 04/09/22 Famotidine [Pepcid] 20 mg PO BID #60 tablet 04/09/22 Promethazine [Phenergan] 25 mg PO Q6H PRN #10 tab 04/09/22 traMADol [Ultram] 50 - 100 mg PO Q6H PRN #20 tablet 04/09/22 - Allergies Allergies/Adverse Reactions: Allergies Allergy/AdvReac Type Severity Reaction Status Date / Time codeine Allergy Rash Verified 04/09/22 15:55 - Social History Does the pt smoke?: Yes Smoking Status: Current every day smoker Does the pt drink ETOH?: No Does the pt have substance abuse?: No - Immunizations Immunizations are current?: Yes Immunizations: TDAP >10years/unknown PD ED PE NORMAL - Vitals Vital signs reviewed: Yes - General General: Alert and oriented X 3, No acute distress - HEENT HEENT: Moist mucous membranes - Neck Neck: Supple, no meningeal sign - Cardiac Cardiac: RRR - Respiratory Respiratory: No respiratory distress, Clear bilaterally - Abdomen Abdomen: Soft, Non distended, Other (Mild diffuse tenderness to palpation, most of the tenderness is in the right lower quadrant. No peritoneal signs.) - Back Back: No CVA TTP, No spinal TTP - Derm Derm: Warm and dry - Extremities Extremities: No edema, No calf tenderness / cord - Neuro Neuro: Alert and oriented X 3 - Psych Psych: Normal mood, Normal affect Results - Vitals Vitals: Vital Signs - 24 hr 04/09/22 04/09/22 04/09/22 15:55 16:36 18:03 Temperature 36.5 C Heart Rate 67 72 91 Respiratory 16 16 16 Rate Blood Pressure 116/60 136/87 H O2 Saturation 99 100 100 Oxygen O2 Source Room air - Labs Labs: Laboratory Tests 04/09/22 04/09/22 04/09/22 16:18 16:18 16:18 WBC 6.8 RBC 4.43 Hgb 13.3 Hct 39.2 MCV 88.5 MCH 30.0 MCHC 33.9 RDW 13.1 Plt Count 232 MPV 10.4 Neut # (Auto) 5.1 Lymph # (Auto) 1.2 L [place] # (Auto) 0.4 Eos # (Auto) 0.1 Baso # (Auto) 0.1 Absolute Nucleated RBC 0.00 Nucleated RBC % 0.0 PT 13.0 H INR 1.2 Sodium 139 Potassium 3.7 Chloride 104 Carbon Dioxide 24 Anion Gap 11.0 BUN 13 Creatinine 0.8 Estimated GFR (MDRD) 73 L Glucose 111 H Calcium 9.9 Total Bilirubin 0.5 AST 21 ALT 15 Alkaline Phosphatase 85 Total Protein 7.4 Albumin 4.3 Globulin 3.1 Albumin/Globulin Ratio 1.4 Lipase 43 Urine Color Urine Clarity Urine pH Ur Specific [place] Urine Protein Urine Glucose (UA) Urine Ketones Urine Occult Blood Urine Nitrite Urine Bilirubin Urine Urobilinogen Ur Leukocyte Esterase Ur Microscopic Review Urine Culture Comments 04/09/22 16:57 WBC RBC Hgb Hct MCV MCH MCHC RDW Plt Count MPV Neut # (Auto) Lymph # (Auto) [place] # (Auto) Eos # (Auto) Baso # (Auto) Absolute Nucleated RBC Nucleated RBC % PT INR Sodium Potassium Chloride Carbon Dioxide Anion Gap BUN Creatinine Estimated GFR (MDRD) Glucose Calcium Total Bilirubin AST ALT Alkaline Phosphatase Total Protein Albumin Globulin Albumin/Globulin Ratio Lipase Urine Color YELLOW Urine Clarity CLEAR Urine pH 7.5 Ur Specific [place] 1.010 Urine Protein NEGATIVE Urine Glucose (UA) NEGATIVE Urine Ketones NEGATIVE Urine Occult Blood NEGATIVE Urine Nitrite NEGATIVE Urine Bilirubin NEGATIVE Urine Urobilinogen 0.2 (NORMAL) Ur Leukocyte Esterase NEGATIVE Ur Microscopic Review NOT INDICATED Urine Culture Comments NOT INDICATED - Rads (name of study) CT abdomen pelvis Radiology: Final report received, EMP read contemporaneously, See rad report PD MEDICAL DECISION MAKING - ED course Complexity details: reviewed results, re-evaluated patient, considered differential, d/w patient ED course: 61-year-old female presents to the emergency department with abdominal pain and vomiting. Given Phenergan, morphine and Protonix. Vomiting resolved. Abdominal pain resolved. No significant lab abnormalities. Negative urinalysis. No specific findings on CT scan. She states that tramadol has helped her abdominal pain in the past. Will place on a PPI, H2 devon, pain medication nausea medication for home. Patient counseled regarding signs and symptoms for which I believe and urgent re-evaluation would be necessary. Patient with good understanding of and agreement to plan and is comfortable going home at this time This document was made in part using voice recognition software. While efforts are made to proofread this document, sound alike and grammatical errors may occur. Abdomen is soft, nontender nondistended on serial exam. Tolerating p.o. without difficulty IMPRESSION: 1. Right proximal ureter is mildly prominent. However, this appears similar to the CT from September 2021. This is a nonspecific finding and could be due to a patulous segment, peristalsis, or ascending urinary tract infection could have this appearance. -Recommend correlation with urinalysis. 2. The appendix is not dilated. No small bowel obstruction. Departure - Departure Disposition: 01 Home, Self Care Clinical Impression: Abdominal pain Qualifiers: Abdominal location: unspecified location Qualified Code(s): R10.9 - Unspecified abdominal pain Vomiting Qualifiers: Vomiting type: unspecified Nausea presence: with nausea Qualified Code(s): R11.2 - Nausea with vomiting, unspecified Condition: Good Instructions: ED Abdominal Pain Female Non-Specific Abdominal Pain, ED PUD Vs Gastritis, ED Nausea Vomiting Follow-Up: your,doctor in 3-5 days [Other] Prescriptions: Esomeprazole Magnesium [Nexium] 40 mg PO DAILY #30 cap Famotidine [Pepcid] 20 mg PO BID #60 tablet Promethazine [Phenergan] 25 mg PO Q6H PRN #10 tab PRN Reason: Nausea / Vomiting traMADol [Ultram] 50 - 100 mg PO Q6H PRN #20 tablet PRN Reason: Abdominal Pain Comments: Your laboratory testing and CT scan do not show any acute abnormalities. Your prescriptions were sent to [facility] [employer] [facility]. Please follow-up with your doctor for further care. Please return if you worsen. Avoid caffeine, alcohol, cigarettes, spicy foods and fried foods. Avoid things like Motrin as well. I am prescribing a short course of narcotic pain medication for you. These are potentially dangerous and addictive medications that should be used carefully. These medications may constipate you. Take an [id number] stool softener (docusate) twice daily with plenty of water while taking these medications. If you go 24 hours without a bowel movement, take [id number] miralax, per package instructions. Do not drink or drive while taking these medications. If you received narcotic or sedating medications while in the emergency department, do not drive for 24 hours. Store this medication in a safe, secure place and out of reach of children. It is a violation of federal law to give or sell this medication to another person or to use in a manner other than prescribed. The ED will not refill narcotic prescriptions, including prescriptions lost or stolen. To dispose of unwanted medications: 1. [facility] at [address]. in [place] has a medication drop box. They accept prescription medications (in pill form) Saturday through Saturday 9:00 a.m. to 5:00 p.m. 2. The [facility] accepts prescription medications (in pill form only) for disposal year round. Call for more information. 3. Contact the [facility] for the next [facility] sponsored prescription drug collection event. , [phone], or [phone]; Discharge Date/Time: 04/09/22 18:50
[2022-04-09 16:25] LABS: BASOPHILS # (AUTO) 0.1 10^3/uL (0.0-0.1); BASOPHILS % (AUTO) 1.3 %; EOSINOPHILS # (AUTO) 0.1 10^3/uL (0.0-0.7); EOSINOPHILS % (AUTO) 0.7 %; HCT - HEMATOCRIT 39.2 % (37.0-47.0); HGB - HEMOGLOBIN 13.3 g/dL (12.0-16.0); LYMPHOCYTES # (AUTO) 1.2 10^3/uL (1.5-3.5); LYMPHOCYTES % (AUTO) 17.6 %; MEAN CORPUSCULAR HGB CONC 33.9 g/dL (32.0-36.0); MEAN CORPUSCULAR VOLUME 88.5 fL (81.0-99.0); MEAN PLATELET VOLUME 10.4 fL (7.9-10.8); MONOCYTES # (AUTO) 0.4 10^3/uL (0.0-1.0); MONOCYTES % (AUTO) 5.3 %; NEUTROPHILS # (AUTO) 5.1 10^3/uL (1.5-6.6); PLT - PLATELET COUNT 232 10^3/uL (130-450); RED BLOOD COUNT 4.43 10^6/uL (4.20-5.40); RED CELL DISTRIBUTION WIDTH 13.1 % (12.0-15.0); WHITE BLOOD COUNT 6.8 x10^3/uL (4.8-10.8)
[2022-04-09 16:39] LABS: ALBUMIN 4.3 g/dL (3.2-5.5); ALBUMIN/GLOBULIN RATIO 1.4 (1.0-2.2); BILIRUBIN,TOTAL 0.5 mg/dL (0.2-1.0); CALCIUM 9.9 mg/dL (8.5-10.3); CREATININE 0.8 mg/dL (0.4-1.0); POTASSIUM 3.7 mmol/L (3.5-5.0); TOTAL PROTEIN 7.4 g/dL (6.7-8.2)
[2022-04-09 16:44] LABS: INR 1.2 (0.8-1.2)
[2022-04-09 17:05] LABS: BILIRUBIN,URINE NEGATIVE (NEGATIVE); GLUCOSE, URINE (UA) NEGATIVE (NEGATIVE); KETONES,URINE (UA) NEGATIVE (NEGATIVE); LEUKOCYTE ESTERASE, URINE NEGATIVE (NEGATIVE); NITRITE,URINE NEGATIVE (NEGATIVE); OCCULT BLOOD,URINE NEGATIVE (NEGATIVE); PH,URINE 7.5 PH (5.0-7.5); PROTEIN,URINE NEGATIVE (NEGATIVE); UROBILINOGEN,URINE 0.2 (NORMAL) E.U./dL (NORMAL)
[2022-04-09 17:09] LABS: CLARITY,URINE CLEAR (CLEAR)
--- NOTE | 2022-04-09 17:58 | CT Report ---
PROCEDURE: Abdomen/Pelvis W INDICATIONS: RLQ pain, vomiting CONTRAST: IV CONTRAST: Optiray 320 ml: 100 PO CONTRAST: *NO PO CONTRAST TECHNIQUE: After the administration of intravenous contrast, 5 mm thick sections acquired from the diaphragms to the symphysis. 5 mm thick coronal and sagittal reformats were acquired. For radiation dose reducti on, the following was used: automated exposure control, adjustment of mA and/or kV according to janki ent size. COMPARISON: CT abdomen pelvis 10/03/2021. FINDINGS: Image quality: Excellent. ABDOMEN: Lung bases: Small cyst at the left lung base. Mild peripheral reticular thickening. No pleural effusi on. Heart size is normal. Solid organs: Liver and spleen are normal in size and enhancement. Gallbladder is unremarkable Demetrio iary system is non dilated. Pancreas enhances normally. No adrenal nodules. Kidneys enhance symmetr ically. Right kidney extra renal pelvis. No hydronephrosis. Small simple appearing left renal cyst. A few left cortical hypodensities which are too small to further characterize. The right ureter is pro minent with increased conspicuity of the ureteral wall. Peritoneum and bowel: Bowel loops demonstrate normal wall thickness and caliber. The appendix is not dilated and has air within its lumen. No periappendiceal inflammatory change. No free fluid or air. Nodes and vessels: No retroperitoneal or mesenteric adenopathy by size criteria. Aorta and inferior vena cava are normal in size. Extensive plaque within the aorta. Left iliac stent. Miscellaneous: No ventral hernias. PELVIS: Genitourinary: Bladder wall thickness is normal. Uterus is absent. Miscellaneous: No inguinal hernias or adenopathy. Small fatty nodule in the left lower quadrant danish toneum is unchanged. Bones: No suspicious bony lesions. No vertebral body compression fractures. IMPRESSION: 1. Right proximal ureter is mildly prominent. However, this appears similar to the CT from September 13. This is a nonspecific finding and could be due to a patulous segment, peristalsis, or ascending urinary tract infection could have this appearance. -Recommend correlation with urinalysis. 2. The appendix is not dilated. No small bowel obstruction. Reviewed by: Indra Bolanos MD on 04/09/2022 5:57 PM PDT Approved by: Indra Bolanos MD on 04/09/2022 5:57 PM PDT Station ID: [id number]
[2022-04-09 18:04] VITALS: BP 136/87
[2022-04-09] MEDS ORDERED: traMADol 50 MG TABLET PO STA (18:26)
== END 2022-04-09 18:50 | disposition home or self-care (01) ==
LOC: ED 15:52
DX: R10.9 Unspecified abdominal pain (principal); R11.2 Nausea with vomiting, unspecified; I10 Essential (primary) hypertension; F17.200 Nicotine dependence, unspecified, uncomplicated
CPT/HCPCS: 36415; 74177; 80053; 81003; 83690; 85025; 85610; 96365; 96375; 96376; 99284; A9270; J7040; Q9967; 81001; 87086

== ENCOUNTER 2022-04-19 19:00 | Emergency (ER) | payer MEDICARE, MEDICAID ==
[2022-04-19 19:53] LABS: BASOPHILS # (AUTO) 0.1 10^3/uL (0.0-0.1); BASOPHILS % (AUTO) 0.9 %; EOSINOPHILS # (AUTO) 0.1 10^3/uL (0.0-0.7); EOSINOPHILS % (AUTO) 0.9 %; HCT - HEMATOCRIT 37.5 % (37.0-47.0); HGB - HEMOGLOBIN 12.8 g/dL (12.0-16.0); LYMPHOCYTES # (AUTO) 1.7 10^3/uL (1.5-3.5); LYMPHOCYTES % (AUTO) 29.5 %; MEAN CORPUSCULAR HEMOGLOBIN 30.5 pg (27.0-31.0); MEAN CORPUSCULAR HGB CONC 34.1 g/dL (32.0-36.0); MEAN CORPUSCULAR VOLUME 89.5 fL (81.0-99.0); MEAN PLATELET VOLUME 10.1 fL (7.9-10.8); MONOCYTES # (AUTO) 0.5 10^3/uL (0.0-1.0); MONOCYTES % (AUTO) 9.6 %; NEUTROPHILS # (AUTO) 3.3 10^3/uL (1.5-6.6); NEUTROPHILS % (AUTO) 58.9 %; PLT - PLATELET COUNT 205 10^3/uL (130-450); RED BLOOD COUNT 4.19 10^6/uL (4.20-5.40); RED CELL DISTRIBUTION WIDTH 13.2 % (12.0-15.0); WHITE BLOOD COUNT 5.6 x10^3/uL (4.8-10.8)
[2022-04-19 20:02] LABS: INR 1.2 (0.8-1.2); PT - PROTHROMBIN TIME 13.3 secs (9.9-12.6)
[2022-04-19 20:07] LABS: ALBUMIN 4.2 g/dL (3.2-5.5); ALBUMIN/GLOBULIN RATIO 1.5 (1.0-2.2); ALKALINE PHOSPHATASE 80 IU/L (42-121); ALT ALANINE AMINOTRANSFERASE 15 IU/L (10-60); AST ASPARTATE AMINOTRANSFERASE 18 IU/L (10-42); BILIRUBIN,TOTAL 0.8 mg/dL (0.2-1.0); BUN - BLOOD UREA NITROGEN 11 mg/dL (6-20); CALCIUM 9.7 mg/dL (8.5-10.3); CARBON DIOXIDE - CO2 25 mmol/L (21-32); CHLORIDE 105 mmol/L (101-111); CREATININE 0.8 mg/dL (0.4-1.0); GFR - MDRD 73 (>89); GLUCOSE 96 mg/dL (70-100); LIPASE 45 U/L (22-51); POTASSIUM 3.7 mmol/L (3.5-5.0); SODIUM 140 mmol/L (135-145)
[2022-04-19 20:09] LABS: PARTIAL THROMBOPLASTIN TIME 29.7 secs (24.9-33.3)
[2022-04-19 20:10] LABS: ETOH - ETHANOL < 5.0 mg/dL
[2022-04-19 20:11] LABS: PHENYTOIN (DILANTIN) < 2.5 ug/mL
[2022-04-19] MEDS ORDERED: SODIUM CHLORIDE 0.9% 1,000 ML IV STA (20:17)
[2022-04-19] MEDS ORDERED: ONDANSETRON 4 MG/2 ML VIAL IVP STA (20:18)
[2022-04-19] MEDS ORDERED: MORPHINE 2 MG/ML CARPUJECT IVP STA (20:18)
--- NOTE | 2022-04-19 21:13 | XRAY Report ---
PROCEDURE: Chest 1 View X-Ray INDICATIONS: weakness/cough TECHNIQUE: One view of the chest was acquired. COMPARISON: None. FINDINGS: Surgical changes and devices: None. Lungs and pleura: No pleural effusions or pneumothorax. Lungs are clear. Mediastinum: Mediastinal contours appear normal. Heart size is normal. Bones and chest wall: No suspicious bony lesions. Overlying soft tissues appear unremarkable. IMPRESSION: No acute cardiopulmonary disease. Reviewed by: Janel Brown MD on 04/19/2022 9:11 PM PDT Approved by: Janel Brown MD on 04/19/2022 9:11 PM PDT Station ID: [id number]
--- NOTE | 2022-04-19 21:38 | ED Physician Documentation ---
History of Present Illness - Stated complaint Stated Complaint: WEAKNESS - Chief complaint Chief Complaint: Abd Pain - History obtained from History obtained from: Patient - Additonal information Additional information: Patient presenting for evaluation of intermittent upper abdominal pain, bruising and bone pain. Patient was recently seen for abdominal pain with negative work- up. Reports that her symptoms have not changed. She feels the pain more at night when she is trying to sleep. She denies association with eating. She reports associated nausea but no vomiting. Patient also reports having various bruises throughout her body that she cannot account for. She is on Plavix for history of strokes. She had a history of similar bruising earlier this summer that she reports went away on its own. She also reports having bone pain all over including in the right knee and denies any injury.She denies fever, chest pain, difficulty breathing, diarrhea, hematemesis or melena. Review of Systems Constitutional: denies: Fever Nose: denies: Congestion Cardiac: denies: Chest pain / pressure Respiratory: denies: Dyspnea, Cough GI: reports: Abdominal Pain, Nausea. denies: Vomiting : denies: Dysuria Skin: reports: Other (Bruising) Musculoskeletal: reports: Joint pain Neurologic: reports: Generalized weakness. 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, Breast cancer : Kidney stones HEENT: None Psych: Anxiety Musculoskeletal: None Derm: None - Past Surgical History Past Surgical History: Yes /WASH DRILLER: Hysterectomy - Present Medications Home Medications: Ambulatory Orders Medication Instructions Recorded Confirmed Hydroxyzine Pamoate 25 mg PO DAILY PRN 03/15/16 01/19/22 Clindamycin [Cleocin] 300 mg PO TID 6 Days #18 cap 07/19/21 01/19/22 Doxepin [SINEquan] 25 mg PO QPM 07/19/21 01/19/22 Gabapentin [Neurontin] 300 mg PO BID 07/19/21 01/19/22 Levetiracetam [Keppra] 500 mg PO BID 07/19/21 01/19/22 Oxycodone HCl/Acetaminophen 1 each PO Q6H PRN #15 tablet 07/19/21 01/19/22 [Percocet 5-325 mg Tablet] Phenytoin [Dilantin] 300 mg PO DAILY 07/19/21 01/19/22 Topiramate [Topamax] 150 mg PO BID 07/19/21 01/19/22 Venlafaxine HCl 150 mg PO DAILY 07/19/21 01/19/22 hydroCHLOROthiazide [Hydrodiuril] 12.5 mg PO DAILY 07/19/21 01/19/22 HYDROcod/ACETAM 5/325 [[place] 5/325] 1 tab PO BID PRN #10 tablet 10/03/21 01/19/22 Ibuprofen [Motrin] 600 mg PO Q6H PRN #30 tab 10/03/21 01/19/22 Sucralfate [Carafate] 1 gm PO ACHS #60 tablet 12/24/21 01/19/22 Esomeprazole Magnesium [Nexium] 40 mg PO DAILY #30 cap 04/09/22 Famotidine [Pepcid] 20 mg PO BID #60 tablet 04/09/22 Promethazine [Phenergan] 25 mg PO Q6H PRN #10 tab 04/09/22 traMADol [Ultram] 50 - 100 mg PO Q6H PRN #20 tablet 04/09/22 Ondansetron Odt [Zofran] 4 mg TL Q6H PRN #10 tablet 04/19/22 - Allergies Allergies/Adverse Reactions: Allergies Allergy/AdvReac Type Severity Reaction Status Date / Time codeine Allergy Rash Verified 04/19/22 19:12 - Social History Does the pt smoke?: Yes Smoking Status: Current every day smoker Does the pt drink ETOH?: No Does the pt have substance abuse?: No - Immunizations Immunizations are current?: Yes Immunizations: TDAP >10years/unknown PD ED PE NORMAL - General General: Alert and oriented X 3, No acute distress, Well developed/nourished - HEENT HEENT: Atraumatic, PERRL, EOMI, Moist mucous membranes, Pharynx benign - Neck Neck: Supple, no meningeal sign, No bony TTP - Cardiac Cardiac: RRR, No murmur, Strong equal pulses - Respiratory Respiratory: No respiratory distress, Clear bilaterally - Abdomen Abdomen: Normal bowel sounds, Soft, Non tender, Non distended - Derm Derm: Warm and dry, Other (Scattered bruising to extremities and abdomen many of which are yellowed in color few that are dark purple) - Extremities Extremities: No deformity, No tenderness to palpate, Normal ROM s pain, No edema - Neuro Neuro: Alert and oriented X 3, merchandising specialist 2-12 intact, No motor deficit, No sensory deficit, Normal speech, Other (Steady unassisted gait) Results - Vitals Vitals: Vital Signs - 24 hr 04/19/22 04/19/22 04/19/22 19:09 20:33 22:43 Temperature 37.0 C Heart Rate 93 83 89 Respiratory 16 16 18 Rate Blood Pressure 142/80 H 126/81 H 139/74 H O2 Saturation 98 100 100 Oxygen O2 Source Room air - EKG (time done) 2030 Rate: Rate (enter#) (80) Rhythm: NSR Intervals: No: Prolonged QT Ischemia: No: ST elevation c/w ischemia - Labs Labs: Laboratory Tests 04/19/22 04/19/22 04/19/22 19:47 19:47 19:47 WBC 5.6 RBC 4.19 L Hgb 12.8 Hct 37.5 MCV 89.5 MCH 30.5 MCHC 34.1 RDW 13.2 Plt Count 205 MPV 10.1 Neut # (Auto) 3.3 Lymph # (Auto) 1.7 [place] # (Auto) 0.5 Eos # (Auto) 0.1 Baso # (Auto) 0.1 Absolute Nucleated RBC 0.00 Nucleated RBC % 0.0 PT 13.3 H INR 1.2 APTT 29.7 Sodium 140 Potassium 3.7 Chloride 105 Carbon Dioxide 25 Anion Gap 10.0 BUN 11 Creatinine 0.8 Estimated GFR (MDRD) 73 L Glucose 96 Calcium 9.7 Total Bilirubin 0.8 AST 18 ALT 15 Alkaline Phosphatase 80 Total Protein 7.0 Albumin 4.2 Globulin 2.8 Albumin/Globulin Ratio 1.5 Lipase 45 Phenytoin < 2.5 Ethyl Alcohol < 5.0 PD MEDICAL DECISION MAKING - ED course Complexity details: reviewed results, re-evaluated patient, d/w patient ED course: Patient with generalized weakness, abdominal pain that is intermittent, nausea, bruising presenting for evaluation. Labs reviewed without significant findings. She has not been taking her phenytoin over the last week due to nausea. She denies recent seizures. Abdominal exam remains benign and I do not think she needs a repeat CT scan given lack of Tenderness and normal labs. X-ray of the knee is unremarkable. Patient is easily ambulatory. Discussed need for close follow-up with her primary care doctor. She reports feeling better after IV fluids. Departure - Departure Disposition: 01 Home, Self Care Clinical Impression: Nausea alone, Bruising Right knee pain Qualifiers: Chronicity: acute Qualified Code(s): M25.561 - Pain in right knee Condition: Stable Instructions: ED Contusion Soft Tissue, ED Knee Pain UKO, ED Nausea Vomiting Prescriptions: Ondansetron Odt [Zofran] 4 mg TL Q6H PRN #10 tablet PRN Reason: Nausea / Vomiting Comments: Your labs were checked and there are no significant abnormal findings. Your x- rays also did not show signs of pneumonia or a broken bone. I have prescribed a nausea medication called Guerrero and sent this prescription to [facility] in [place]. Please contact your primary care doctor for close follow-up. If you have any worsening symptoms please return to the emergency department. Discharge Date/Time: 04/19/22 22:47
[2022-04-19] MEDS ORDERED: ONDANSETRON ODT 4 MG Prepack 2 TL PRN (22:22)
--- NOTE | 2022-04-19 22:32 | XRAY Report ---
PROCEDURE: Knee 3 View RT INDICATIONS: pain TECHNIQUE: 3 views of the right knee were acquired. COMPARISON: None. FINDINGS: Bones: No fractures or dislocations. The joint spaces appear preserved. There is a small subchondral lucency within the medial tibial plateau suggestive of a subchondral cyst. No suspicious bony lesion s. Soft tissues: No joint effusion. No suspicious soft tissue calcifications. IMPRESSION: 1. No fracture or dislocation. 2. Suspected small subchondral cyst within the medial tibial plateau without associated joint space n arrowing. Reviewed by: Leonel Bowen MD on 04/19/2022 10:31 PM PDT Approved by: Leonel Bowen MD on 04/19/2022 10:31 PM PDT Station ID: [id number]
[2022-04-19 22:46] VITALS: BP 139/74
== END 2022-04-19 22:47 | disposition home or self-care (01) ==
LOC: ED 19:00
DX: M25.561 Pain in right knee (principal); T14.8XXA Other injury of unspecified body region, initial encounter; X58.XXXA Exposure to other specified factors, initial encounter; R11.0 Nausea; I10 Essential (primary) hypertension; F17.200 Nicotine dependence, unspecified, uncomplicated
CPT/HCPCS: 36415; 71045; 73562; 80053; 80185; 83690; 85025; 85610; 85730; 93005; 96374; 96375; 99284; G0480; 80320

== ENCOUNTER 2022-11-08 20:09 | Emergency (ER) | payer MEDICARE, MEDICAID ==
--- NOTE | 2022-11-08 20:57 | ED Physician Documentation ---
History of Present Illness - Stated complaint Stated Complaint: BODY/LEG/SHOULDER/BACK PX - Chief complaint Chief Complaint: Ext Problem - History obtained from History obtained from: Patient - Additonal information Additional information: Patient is a 62-year-old female presenting for evaluation of noticing swelling and pain in her left leg starting approximately 30 minutes ago.Patient denies having any swelling in her leg prior to this. She denies any known injury or trauma.She denies a history of blood clots.She was prescribed a diuretic in the past but this was many years ago. She is has not had much recent follow-up with a PCP in 8 to 9 months. She states she is not currently prescribed a diuretic.She denies fever, cough, chest pain or difficulty breathing, back pain, vomiting. 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, Breast cancer : Kidney stones HEENT: None Psych: Anxiety Musculoskeletal: None Derm: None - Past Surgical History Past Surgical History: Yes /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 - Present Medications Home Medications: Ambulatory Orders Medication Instructions Recorded Confirmed Hydroxyzine Pamoate 25 mg PO DAILY PRN 03/15/16 01/19/22 Clindamycin [Cleocin] 300 mg PO TID 6 Days #18 cap 07/19/21 01/19/22 Doxepin [SINEquan] 25 mg PO QPM 07/19/21 01/19/22 Gabapentin [Neurontin] 300 mg PO BID 07/19/21 01/19/22 Levetiracetam [Keppra] 500 mg PO BID 07/19/21 01/19/22 Oxycodone HCl/Acetaminophen 1 each PO Q6H PRN #15 tablet 07/19/21 01/19/22 [Percocet 5-325 mg Tablet] Phenytoin [Dilantin] 300 mg PO DAILY 07/19/21 01/19/22 Topiramate [Topamax] 150 mg PO BID 07/19/21 01/19/22 Venlafaxine HCl 150 mg PO DAILY 07/19/21 01/19/22 hydroCHLOROthiazide [Hydrodiuril] 12.5 mg PO DAILY 07/19/21 01/19/22 HYDROcod/ACETAM 5/325 [[place] 5/325] 1 tab PO BID PRN #10 tablet 10/03/21 01/19/22 Ibuprofen [Motrin] 600 mg PO Q6H PRN #30 tab 10/03/21 01/19/22 Sucralfate [Carafate] 1 gm PO ACHS #60 tablet 12/24/21 01/19/22 Esomeprazole Magnesium [Nexium] 40 mg PO DAILY #30 cap 04/09/22 Famotidine [Pepcid] 20 mg PO BID #60 tablet 04/09/22 Promethazine [Phenergan] 25 mg PO Q6H PRN #10 tab 04/09/22 traMADol [Ultram] 50 - 100 mg PO Q6H PRN #20 tablet 04/09/22 Ondansetron Odt [Zofran] 4 mg TL Q6H PRN #10 tablet 04/19/22 - Allergies Allergies/Adverse Reactions: Allergies Allergy/AdvReac Type Severity Reaction Status Date / Time codeine Allergy Rash Verified 11/08/22 20:18 - Social History Does the pt smoke?: Yes Smoking Status: Current every day smoker Does the pt drink ETOH?: No Does the pt have substance abuse?: No - Immunizations Immunizations are current?: Yes Immunizations: TDAP >10years/unknown PD ED PE NORMAL - General General: Alert and oriented X 3, No acute distress, Well developed/nourished - HEENT HEENT: Atraumatic - Neck Neck: Supple, no meningeal sign - Cardiac Cardiac: RRR - Respiratory Respiratory: No respiratory distress, Clear bilaterally - Abdomen Abdomen: Soft, Non tender - Derm Derm: Warm and dry - Extremities Extremities: No deformity, No tenderness to palpate, Normal ROM s pain, Other ( pulses intact, extremity is warm and appears well-perfused with soft compartments, Mild amount of swelling around the ankle, No erythema; Pain with plantar or dorsiflexion) - Neuro Neuro: No motor deficit, No sensory deficit Results - Vitals Vitals: Vital Signs - 24 hr 11/08/22 11/08/22 11/08/22 20:18 20:34 21:43 Temperature 36.5 C 36.7 C Heart Rate 95 90 86 Respiratory 16 13 18 Rate Blood Pressure 127/83 H 118/68 133/80 H O2 Saturation 98 100 100 Oxygen O2 Source Room air - Labs Labs: Laboratory Tests 11/08/22 11/08/22 11/08/22 20:54 20:54 20:54 WBC 5.8 RBC 4.35 Hgb 12.8 Hct 39.2 MCV 90.1 MCH 29.4 MCHC 32.7 RDW 13.2 Plt Count 262 MPV 10.2 Neut # (Auto) 3.2 Lymph # (Auto) 1.9 [place] # (Auto) 0.5 Eos # (Auto) 0.2 Baso # (Auto) 0.1 Absolute Nucleated RBC 0.00 Nucleated RBC % 0.0 Sodium 140 Potassium 3.7 Chloride 106 Carbon Dioxide 28 Anion Gap 6.0 BUN 12 Creatinine 0.6 Estimated GFR (MDRD) 102 Glucose 109 H Calcium 9.7 B-Natriuretic Peptide < 5 L PD Medical Decision Making - ED course ED course: Patient is a 62-year-old female presenting for evaluation of pain behind at the left knee and perceived swelling to the leg. There is no significant appreciable difference in Conference of the left leg with respect to the right. She does have mild tenderness behind the left knee. There is no bony tenderness. She has full range of motion. Distal pulses intact. Motor and sensation are preserved. Ultrasound was obtained which is negative for DVT. Screening labs were also obtained with a CBC, chemistry and BNP without any significant abnormal findings. Per field evidence technician she did have a small [place]'s cyst. Patient is ambulatory without any difficulty. She does report of recent difficulty with sleep and is requesting a one-time dose of medicine that she used to take for anxiety. On review of prior medication list she was on hydroxyzine and was given a one-time dose. Patient counseled on need for close follow-up with PCP to establish care as well as concerning symptoms to return for. Departure - Departure Disposition: 01 Home, Self Care Clinical Impression: Bakers cyst Condition: Stable Instructions: ED Cyst [place] Follow-Up: Frnacisca Aguilar PA-C [Provider Admit Priv/Credential] - Comments: Your ultrasound does not show signs of a blood clot in your leg.You do have a small [place]'s cyst which is a fluid-filled sac behind the knee which could be causing your pain. Labs are reassuring. You need to establish care with a local primary care doctor. I have listed the name of a local provider as an option. Return to the emergency department with any worsening symptoms. Discharge Date/Time: 11/08/22 21:45
[2022-11-08 20:59] LABS: BASOPHILS # (AUTO) 0.1 10^3/uL (0.0-0.1); BASOPHILS % (AUTO) 1.4 %; EOSINOPHILS # (AUTO) 0.2 10^3/uL (0.0-0.7); EOSINOPHILS % (AUTO) 2.6 %; HCT - HEMATOCRIT 39.2 % (37.0-47.0); HGB - HEMOGLOBIN 12.8 g/dL (12.0-16.0); LYMPHOCYTES # (AUTO) 1.9 10^3/uL (1.5-3.5); LYMPHOCYTES % (AUTO) 31.9 %; MEAN CORPUSCULAR HEMOGLOBIN 29.4 pg (27.0-31.0); MEAN CORPUSCULAR HGB CONC 32.7 g/dL (32.0-36.0); MEAN CORPUSCULAR VOLUME 90.1 fL (81.0-99.0); MEAN PLATELET VOLUME 10.2 fL (7.9-10.8); MONOCYTES # (AUTO) 0.5 10^3/uL (0.0-1.0); MONOCYTES % (AUTO) 8.6 %; NEUTROPHILS # (AUTO) 3.2 10^3/uL (1.5-6.6); NEUTROPHILS % (AUTO) 55.3 %; PLT - PLATELET COUNT 262 10^3/uL (130-450); RED BLOOD COUNT 4.35 10^6/uL (4.20-5.40); RED CELL DISTRIBUTION WIDTH 13.2 % (12.0-15.0); WHITE BLOOD COUNT 5.8 x10^3/uL (4.8-10.8)
[2022-11-08 21:07] LABS: CALCIUM 9.7 mg/dL (8.5-10.3); CREATININE 0.6 mg/dL (0.4-1.0); POTASSIUM 3.7 mmol/L (3.5-5.0)
[2022-11-08] MEDS: hydrOXYzine PAMOATE 25 MG CAPSULE PO STA (21:41)
[2022-11-08 21:45] VITALS: BP 133/80
--- NOTE | 2022-11-08 22:23 | Ultrasound Report ---
PROCEDURE: Duplex Ext Veins Left INDICATIONS: L leg pain TECHNIQUE: Real-time imaging, as well as color and pulse Doppler interrogation, were performed of the lower extr emity deep veins from the inguinal ligament to the popliteal fossa. COMPARISON: None. FINDINGS: The deep veins are normally compressible, and free of intraluminal thrombus. Color and pu lse Doppler demonstrate normal phasic intraluminal flow. There is normal augmentation response to di stal compression maneuver. IMPRESSION: 1. No evidence of deep venous thrombosis in the left lower extremity. Reviewed by: Leonel Bowen MD on 11/08/2022 10:21 PM PDT Approved by: Leonel Bowen MD on 11/08/2022 10:21 PM PDT Station ID: [id number]
== END 2022-11-08 21:45 | disposition home or self-care (01) ==
LOC: ED 20:09
DX: M71.22 Synovial cyst of popliteal space [Baker], left knee (principal); I10 Essential (primary) hypertension; F17.200 Nicotine dependence, unspecified, uncomplicated
CPT/HCPCS: 36415; 80048; 83880; 85025; 93971; 99283; A9270

== ENCOUNTER 2022-11-14 17:50 | Emergency (ER) | payer MEDICARE, MEDICAID ==
[2022-11-14 18:18] VITALS: BP 138/72
--- NOTE | 2022-11-14 19:09 | ED Physician Documentation ---
PD HPI OPHTHO - Stated complaint Stated Complaint: EYES BURNING - Chief complaint Chief Complaint: Heent - History obtained from History obtained from: Patient - Additional information Additional information: Patient is a 62-year-old female with no significant past medical history presenting for evaluation of feeling burning and dry sensation to bilateral eyes for the past 1 to 2 hours. She denies any visual disturbances. She does not wear contacts or glasses.She denies itching, trauma, discharge from her eyes. Denies chemical exposure or exposure to welding light. 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: Hysterectomy - Present Medications Home Medications: Ambulatory Orders Medication Instructions Recorded Confirmed Hydroxyzine Pamoate 25 mg PO DAILY PRN 03/15/16 01/19/22 Clindamycin [Cleocin] 300 mg PO TID 6 Days #18 cap 07/19/21 01/19/22 Doxepin [SINEquan] 25 mg PO QPM 07/19/21 01/19/22 Gabapentin [Neurontin] 300 mg PO BID 07/19/21 01/19/22 Levetiracetam [Keppra] 500 mg PO BID 07/19/21 01/19/22 Oxycodone HCl/Acetaminophen 1 each PO Q6H PRN #15 tablet 07/19/21 01/19/22 [Percocet 5-325 mg Tablet] Phenytoin [Dilantin] 300 mg PO DAILY 07/19/21 01/19/22 Topiramate [Topamax] 150 mg PO BID 07/19/21 01/19/22 Venlafaxine HCl 150 mg PO DAILY 07/19/21 01/19/22 hydroCHLOROthiazide [Hydrodiuril] 12.5 mg PO DAILY 07/19/21 01/19/22 HYDROcod/ACETAM 5/325 [[place] 5/325] 1 tab PO BID PRN #10 tablet 10/03/21 01/19/22 Ibuprofen [Motrin] 600 mg PO Q6H PRN #30 tab 10/03/21 01/19/22 Sucralfate [Carafate] 1 gm PO ACHS #60 tablet 12/24/21 01/19/22 Esomeprazole Magnesium [Nexium] 40 mg PO DAILY #30 cap 04/09/22 Famotidine [Pepcid] 20 mg PO BID #60 tablet 04/09/22 Promethazine [Phenergan] 25 mg PO Q6H PRN #10 tab 04/09/22 traMADol [Ultram] 50 - 100 mg PO Q6H PRN #20 tablet 04/09/22 Ondansetron Odt [Zofran] 4 mg TL Q6H PRN #10 tablet 04/19/22 - Allergies Allergies/Adverse Reactions: Allergies Allergy/AdvReac Type Severity Reaction Status Date / Time codeine Allergy Rash Verified 11/14/22 18:18 - Social History Does the pt smoke?: Yes Smoking Status: Current every day smoker Does the pt drink ETOH?: No Does the pt have substance abuse?: No - Immunizations Immunizations are current?: Yes Immunizations: TDAP >10years/unknown - POLST Patient has POLST: No PD ED PE NORMAL - General General: Alert and oriented X 3, No acute distress, Well developed/nourished - HEENT HEENT: Atraumatic, PERRL, EOMI, Moist mucous membranes - Respiratory Respiratory: No respiratory distress - Derm Derm: Warm and dry - Neuro Neuro: Normal speech PD ED PE EXPANDED - Eyes Eyes: PERRL, EOMI, Normal eyelids, No eyelid FB (everted), Injected conj/sclera (Mild injection), Anterior chambers clear, Other (Normal IOP bilaterally). No: Eyelid swelling, Eyelid erythema, Exudate, Fluorescein uptake, Hyphema Results - Vitals Vitals: Vital Signs - 24 hr 11/14/22 18:14 Temperature 36.5 C Heart Rate 87 Respiratory 17 Rate Blood Pressure 138/72 H O2 Saturation 99 Oxygen O2 Source Room air PD Medical Decision Making - ED course ED course: Patient presenting for evaluation of bilateral Eye irritation that she describes as a burning dry sensation. No signs of increased intraocular pressure, corneal injury, globe rupture. Her visual acuity is intact. No signs of infection.No known chemical exposures. She is tolerating bright lights in the room.Discussed trial of artificial tears as her eyes do appear quite dry. Patient counseled on strict return precautions For any worsening symptoms. Departure - Departure Disposition: 01 Home, Self Care Clinical Impression: Dry eyes Condition: Stable Instructions: Dry Eye Tx Comments: I do not see signs of any infection, injury or foreign body in your eyes. They do appear quite dry which may be the cause of the irritation. I would recommend continuing with artificial eyedrops which you can use every few hours as needed. If you have any changes to your vision or any worsening symptoms such as increased pain, abnormal discharge or have any new concerns please return to the emergency department. Discharge Date/Time: 11/14/22 19:21
[2022-11-14] MEDS: CARBOXYMETHYLCELLULOSE OPHTH DROPS EACHEYE STA (19:19)
== END 2022-11-14 19:21 | disposition home or self-care (01) ==
LOC: ED 17:50
DX: H04.129 Dry eye syndrome of unspecified lacrimal gland (principal); I10 Essential (primary) hypertension; E78.00 Pure hypercholesterolemia, unspecified; G40.909 Epilepsy, unspecified, not intractable, without status epilepticus; F17.200 Nicotine dependence, unspecified, uncomplicated; Z79.899 Other long term (current) drug therapy
CPT/HCPCS: 99282; 99283

== ENCOUNTER 2022-11-15 02:20 | Outpatient (CLI) | payer MEDICARE, MEDICAID | END 2022-11-15 02:21 | disposition EMS.NT | LOC: EMS 02:20 | DX: H57.13 Ocular pain, bilateral (principal) ==

== ENCOUNTER 2023-05-22 08:39 | Outpatient (CLI) | payer MEDICARE, MEDICAID | END 2023-05-22 23:59 | disposition critical access hospital (66) | LOC: EMS 08:39 | DX: M25.562 Pain in left knee (principal); W18.30XA Fall on same level, unspecified, initial encounter; Y92.59 Other trade areas as the place of occurrence of the external cause | CPT/HCPCS: A0425; A0429 ==

== ENCOUNTER 2023-05-22 08:48 | Emergency (ER) | payer MEDICARE, MEDICAID ==
[2023-05-22 09:03] VITALS: BP 130/73; O2SAT 99
[2023-05-22 09:35] LABS: BASOPHILS # (AUTO) 0.1 10^3/uL (0.0-0.1); BASOPHILS % (AUTO) 1.7 %; EOSINOPHILS # (AUTO) 0.1 10^3/uL (0.0-0.7); EOSINOPHILS % (AUTO) 1.3 %; HGB - HEMOGLOBIN 13.1 g/dL (12.0-16.0); LYMPHOCYTES # (AUTO) 1.2 10^3/uL (1.5-3.5); LYMPHOCYTES % (AUTO) 23.5 %; MEAN CORPUSCULAR HEMOGLOBIN 28.9 pg (27.0-31.0); MEAN CORPUSCULAR VOLUME 90.3 fL (81.0-99.0); MEAN PLATELET VOLUME 9.8 fL (7.9-10.8); MONOCYTES # (AUTO) 0.3 10^3/uL (0.0-1.0); NEUTROPHILS # (AUTO) 3.5 10^3/uL (1.5-6.6); NEUTROPHILS % (AUTO) 67.3 %; PLT - PLATELET COUNT 236 10^3/uL (130-450); RED BLOOD COUNT 4.54 10^6/uL (4.20-5.40); RED CELL DISTRIBUTION WIDTH 14.4 % (12.0-15.0); WHITE BLOOD COUNT 5.2 x10^3/uL (4.8-10.8)
[2023-05-22 09:46] LABS: ALBUMIN 4.2 g/dL (3.2-5.5); ALBUMIN/GLOBULIN RATIO 1.5 (1.0-2.2); BILIRUBIN,TOTAL 0.7 mg/dL (0.2-1.0); CALCIUM 9.8 mg/dL (8.5-10.3); CREATININE 0.6 mg/dL (0.6-1.3)
--- NOTE | 2023-05-22 10:03 | XRAY Report ---
PROCEDURE: Foot 3 View RT INDICATIONS: fall/pain TECHNIQUE: 3 views of the foot were acquired. COMPARISON: None. FINDINGS: Bones: No fractures or dislocations. No suspicious bony lesions. Soft tissues: No suspicious soft tissue calcifications or masses. IMPRESSION: No visualized acute fracture or dislocation. However, occult injury cannot be excluded. Recommend celeste rt interval imaging follow-up in 7-10 days as clinically indicated for additional evaluation. Reviewed by: Bekah Harrell MD on 05/22/2023 10:01 AM PDT Approved by: Bekah Harrell MD on 05/22/2023 10:01 AM PDT Station ID: [id number]
--- NOTE | 2023-05-22 10:03 | XRAY Report ---
PROCEDURE: Humerus LT INDICATIONS: fall/pain TECHNIQUE: 2 views of the humerus were acquired. COMPARISON: None. FINDINGS: Bones: No fractures or dislocations. No suspicious bony lesions. Soft tissues: No suspicious soft tissue calcifications or masses. IMPRESSION: No visualized acute fracture or dislocation. However, occult injury cannot be excluded. Recommend celeste rt interval imaging follow-up in 7-10 days as clinically indicated for additional evaluation. Reviewed by: Bekah Harrell MD on 05/22/2023 10:02 AM PDT Approved by: Bekah Harrell MD on 05/22/2023 10:02 AM PDT Station ID: [id number]
--- NOTE | 2023-05-22 10:04 | XRAY Report ---
PROCEDURE: Knee 3 View LT INDICATIONS: fall/pain TECHNIQUE: 3 views of the left knee(s) were acquired. COMPARISON: None. FINDINGS: Bones: No fractures or dislocations. No suspicious bony lesions. Mild to moderate tricompartmenta l arthritic change. Soft tissues: No knee joint effusion. No suspicious soft tissue calcifications or masses. IMPRESSION: No visualized acute fracture or dislocation. However, occult injury cannot be excluded. Recommend celeste rt interval imaging follow-up in 7-10 days as clinically indicated for additional evaluation. Reviewed by: Bekah Harrell MD on 05/22/2023 10:02 AM PDT Approved by: Bekah Harrell MD on 05/22/2023 10:02 AM PDT Station ID: [id number]
[2023-05-22] MEDS ORDERED: ACETAMINOPHEN 325 MG TABLET PO STA (10:22)
--- NOTE | 2023-05-22 10:26 | ED Physician Documentation ---
PD HPI LOWER EXT INJURY - Stated complaint Stated Complaint: KNEE PX - Chief complaint Chief Complaint: Ext Problem - History obtained from History obtained from: Patient - Additional information Additional information: Patient is a 63-year-old female with a seizure disorder, reports being off medications for several months, presenting for evaluation of a ground-level fall that occurred at the [facility] just prior to arrival. Patient states that she felt weak as If she was going to have a seizure And fell to her knees. She did not hit her head. No LOC. No incontinence or seizure. Does not take a blood thinner. Per EMS she was ambulatory to their stretcher but is complaining of left knee, right great toe and left arm pain.Denies recent illness. No chest pain or shortness of air.Denies drug or alcohol use. 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, Breast cancer : Kidney stones HEENT: None Psych: Anxiety Musculoskeletal: None Derm: None - Past Surgical History Past Surgical History: Yes /COSTUME DRAPER: Hysterectomy - Present Medications Home Medications: Ambulatory Orders Medication Instructions Recorded Confirmed Hydroxyzine Pamoate 25 mg PO DAILY PRN 03/15/16 01/19/22 Clindamycin [Cleocin] 300 mg PO TID 6 Days #18 cap 07/19/21 01/19/22 Doxepin [SINEquan] 25 mg PO QPM 07/19/21 01/19/22 Gabapentin [Neurontin] 300 mg PO BID 07/19/21 01/19/22 Levetiracetam [Keppra] 500 mg PO BID 07/19/21 01/19/22 Oxycodone HCl/Acetaminophen 1 each PO Q6H PRN #15 tablet 07/19/21 01/19/22 [Percocet 5-325 mg Tablet] Phenytoin [Dilantin] 300 mg PO DAILY 07/19/21 01/19/22 Topiramate [Topamax] 150 mg PO BID 07/19/21 01/19/22 Venlafaxine HCl 150 mg PO DAILY 07/19/21 01/19/22 hydroCHLOROthiazide [Hydrodiuril] 12.5 mg PO DAILY 07/19/21 01/19/22 HYDROcod/ACETAM 5/325 [[place] 5/325] 1 tab PO BID PRN #10 tablet 10/03/21 01/19/22 Ibuprofen [Motrin] 600 mg PO Q6H PRN #30 tab 10/03/21 01/19/22 Sucralfate [Carafate] 1 gm PO ACHS #60 tablet 12/24/21 01/19/22 Esomeprazole Magnesium [Nexium] 40 mg PO DAILY #30 cap 04/09/22 Famotidine [Pepcid] 20 mg PO BID #60 tablet 04/09/22 Promethazine [Phenergan] 25 mg PO Q6H PRN #10 tab 04/09/22 traMADol [Ultram] 50 - 100 mg PO Q6H PRN #20 tablet 04/09/22 Ondansetron Odt [Zofran] 4 mg TL Q6H PRN #10 tablet 04/19/22 Topiramate [Topamax] 150 mg PO BID #60 tablet 05/22/23 - Allergies Allergies/Adverse Reactions: Allergies Allergy/AdvReac Type Severity Reaction Status Date / Time codeine Allergy Rash Verified 05/22/23 08:58 - Social History Does the pt smoke?: Yes Smoking Status: Current every day smoker Does the pt drink ETOH?: No Does the pt have substance abuse?: No - Immunizations Immunizations are current?: Yes Immunizations: TDAP >10years/unknown - POLST Patient has POLST: No PD ED PE NORMAL - General General: Alert and oriented X 3, No acute distress, Well developed/nourished - HEENT HEENT: Atraumatic, Moist mucous membranes, Pharynx benign - Neck Neck: Supple, no meningeal sign, No bony TTP, C-Spine cleared by NEXUS criteria - Cardiac Cardiac: RRR, No murmur, Strong equal pulses - Respiratory Respiratory: No respiratory distress, Clear bilaterally - Abdomen Abdomen: Normal bowel sounds, Soft, Non tender, Non distended - Back Back: No spinal TTP - Derm Derm: Warm and dry - Extremities Extremities: Other (Normal range of motion at all joints, abrasion to left knee, contusion to right great toe, reports tenderness to left proximal humerus) Results - Vitals Vitals: Vital Signs - 24 hr 05/22/23 08:52 Temperature 36.6 C Heart Rate 70 Respiratory 16 Rate Blood Pressure 130/73 O2 Saturation 99 Oxygen O2 Source Room air - EKG (time done) 1022 EKG releavant findings:: EKG personally interpreted by author of this note. Relevant findings are: Rate 66, normal sinus rhythm, no STEMI, no ST depressions - Labs Labs: Laboratory Tests 05/22/23 05/22/23 09:29 09:29 WBC 5.2 RBC 4.54 Hgb 13.1 Hct 41.0 MCV 90.3 MCH 28.9 MCHC 32.0 RDW 14.4 Plt Count 236 MPV 9.8 Neut # (Auto) 3.5 Lymph # (Auto) 1.2 L Pender # (Auto) 0.3 Eos # (Auto) 0.1 Baso # (Auto) 0.1 Absolute Nucleated RBC 0.00 Nucleated RBC % 0.0 Sodium 141 Potassium 5.0 H Chloride 107 Carbon Dioxide 28 Anion Gap 6.0 BUN 13 Creatinine 0.6 Estimated GFR (MDRD) 102 Glucose 97 Calcium 9.8 Total Bilirubin 0.7 AST 17 ALT 15 Alkaline Phosphatase 112 Total Protein 7.0 Albumin 4.2 Globulin 2.8 Albumin/Globulin Ratio 1.5 PD Medical Decision Making - ED course Complexity details: reviewed results, re-evaluated patient, d/w patient ED course: Patient is a 63-year-old female presenting for evaluation after a fall after feeling like she was going to have a seizure. She did not have a seizure. No head injury. Not on a blood thinner. She is ambulatory with normal range of motion at all joints. X-rays were obtained of the right foot, left knee and left humerus with no fracture or dislocation. CBC and chemistries were obtained and reviewed. Potassium is slightly elevated at 5.0. Renal function is preserved and she is not currently taking any medications. Her EKG is nonischemic and I see no EKG changes associated with hyperkalemia. I reviewed her lab results with her and counseled her on need for close follow-up with PCP for recheck and possible need for further evaluation of hyperkalemia if it persists. In the meantime I recommending increasing fluid intake as well as avoiding high potassium foods. Patient is interested in getting back on her antiepileptic medications and I have sent a prescription for 1 month of Topamax.Patient counseled on need for close follow-up as well as concerning symptoms to return for. Departure - Departure Disposition: 01 Home, Self Care Clinical Impression: Fall, Seizure disorder, Serum potassium elevated Condition: Stable Instructions: Diet Low Potassium Dc, ED Contusion Foot, ED Contusion Lower Ext, ED Potassium Excess Follow-Up: [facility] [place] [Provider Group] - Within 1 week [facility] [place] [Provider Group] - Within 1 week Prescriptions: Topiramate [Topamax] 150 mg PO BID #60 tablet Comments: You were evaluated after a fall. Your x-rays do not show a broken or dislocated bone. Your labs were checked and we noted that your potassium was slightly too high. You need close follow-up with your primary care provider to recheck your potassium and see if you need further treatment for this.In the meanwhile I would encourage you to increase your fluid intake and also avoid high potassium foods. You are also interested in resuming your seizure medications and I have sent a prescription to [facility] in [place] for topiramate. Please make sure to ta ke this as directed. Again you need close follow-up with your primary care provider. Forms: PCP List Discharge Date/Time: 05/22/23 10:57
== END 2023-05-22 10:57 | disposition home or self-care (01) ==
LOC: EDUNIT# → ED 08:48
DX: S80.212A Abrasion, left knee, initial encounter (principal); S90.111A Contusion of right great toe without damage to nail, initial encounter; W18.39XA Other fall on same level, initial encounter; Y92.59 Other trade areas as the place of occurrence of the external cause; E87.5 Hyperkalemia; G40.909 Epilepsy, unspecified, not intractable, without status epilepticus; Z91.148 Patient's other noncompliance with medication regimen for other reason; F17.200 Nicotine dependence, unspecified, uncomplicated
CPT/HCPCS: 36415; 73060; 73562; 73630; 80053; 85025; 93005; 99284; A9270

== ENCOUNTER 2023-08-01 17:48 | Outpatient (CLI) | payer MEDICARE | END 2023-08-01 17:49 | disposition critical access hospital (66) | LOC: EMS 17:48 | DX: M79.601 Pain in right arm (principal); M54.2 Cervicalgia; M25.511 Pain in right shoulder | CPT/HCPCS: A0425; A0429 ==

== ENCOUNTER 2023-08-01 18:00 | Emergency (ER) | payer MEDICAID, MEDICARE ==
[2023-08-01] MEDS ORDERED: MELOXICAM 7.5 MG TABLET PO STA (21:32)
[2023-08-01] MEDS ORDERED: methocarbamoL 500 MG TABLET PO STA (21:32)
--- NOTE | 2023-08-01 21:36 | ED Physician Documentation ---
History of Present Illness - Stated complaint Stated Complaint: ARM PX - Chief complaint Chief Complaint: Ext Problem - History obtained from History obtained from: Patient - History of Present Illness Timing: How many weeks ago (1.5) Pain level max: 6 Pain level now: 6 - Additonal information Additional information: 63-year-old female presents to the emergency department stating that she has a history of seizures. She states that she thinks she may have had a seizure in her sleep about a week and a half ago. She states that she has right-sided neck pain that radiates down the right arm. Worse with movement, better with rest. She states that she saw an ambulance driving down the road today so decided to run after the ambulance, flag it down and come to the emergency department. She states that she does not want any narcotic medication But then requested oxycodone. 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, Breast cancer : Kidney stones HEENT: None Psych: Anxiety Musculoskeletal: None Derm: None - Past Surgical History Past Surgical History: Yes /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: Hysterectomy - Present Medications Home Medications: Ambulatory Orders Medication Instructions Recorded Confirmed Hydroxyzine Pamoate 25 mg PO DAILY PRN 03/15/16 01/19/22 Clindamycin [Cleocin] 300 mg PO TID 6 Days #18 cap 07/19/21 01/19/22 Doxepin [SINEquan] 25 mg PO QPM 07/19/21 01/19/22 Gabapentin [Neurontin] 300 mg PO BID 07/19/21 01/19/22 Levetiracetam [Keppra] 500 mg PO BID 07/19/21 01/19/22 Oxycodone HCl/Acetaminophen 1 each PO Q6H PRN #15 tablet 07/19/21 01/19/22 [Percocet 5-325 mg Tablet] Phenytoin [Dilantin] 300 mg PO DAILY 07/19/21 01/19/22 Topiramate [Topamax] 150 mg PO BID 07/19/21 01/19/22 Venlafaxine HCl 150 mg PO DAILY 07/19/21 01/19/22 hydroCHLOROthiazide [Hydrodiuril] 12.5 mg PO DAILY 07/19/21 01/19/22 HYDROcod/ACETAM 5/325 [[place] 5/325] 1 tab PO BID PRN #10 tablet 10/03/21 01/19/22 Ibuprofen [Motrin] 600 mg PO Q6H PRN #30 tab 10/03/21 01/19/22 Sucralfate [Carafate] 1 gm PO ACHS #60 tablet 12/24/21 01/19/22 Esomeprazole Magnesium [Nexium] 40 mg PO DAILY #30 cap 04/09/22 Famotidine [Pepcid] 20 mg PO BID #60 tablet 04/09/22 Promethazine [Phenergan] 25 mg PO Q6H PRN #10 tab 04/09/22 traMADol [Ultram] 50 - 100 mg PO Q6H PRN #20 tablet 04/09/22 Ondansetron Odt [Zofran] 4 mg TL Q6H PRN #10 tablet 04/19/22 Topiramate [Topamax] 150 mg PO BID #60 tablet 05/22/23 Meloxicam [Mobic] 7.5 mg PO BID PRN #20 tablet 08/01/23 methocarbamoL [Robaxin] 500 mg PO Q6H PRN #10 tablet 08/01/23 - Allergies Allergies/Adverse Reactions: Allergies Allergy/AdvReac Type Severity Reaction Status Date / Time codeine Allergy Rash Verified 08/01/23 18:01 - Social History Does the pt smoke?: Yes Smoking Status: Current every day smoker Does the pt drink ETOH?: No Does the pt have substance abuse?: No - Immunizations Immunizations are current?: Yes Immunizations: TDAP >10years/unknown - POLST Patient has POLST: No PD ED PE NORMAL - Vitals Vital signs reviewed: Yes - General General: Alert and oriented X 3, No acute distress, Well developed/nourished - HEENT HEENT: Moist mucous membranes - Neck Neck: Supple, no meningeal sign, No bony TTP, Other (Mild paraspinal spasm right paracervical. No midline tenderness. No step-off or deformity.) - Cardiac Cardiac: RRR, No murmur - Respiratory Respiratory: No respiratory distress, Clear bilaterally - Abdomen Abdomen: Soft, Non tender, Non distended - Back Back: No spinal TTP - Derm Derm: Warm and dry - Extremities Extremities: Other (No tenderness over the clavicle, scapula. Full range of motion of the right shoulder without pain. No deformity. Neurovascular intact. 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 Ambulating without any difficulty. Appears to have a a mild muscle spasm of the right paracervical area. Given Robaxin and meloxicam. No indication for imaging. No neck tenderness. No focal neurological deficits. We will prescribe a small course of muscle relaxants and anti-inflammatories for home. Will have her follow-up with her doctor for further care. Patient counseled regarding signs and symptoms for which I believe and urgent re-evaluation would be necessary. Patient with good understanding of and agreement to plan and is comfortable going home at this time This document was made in part using voice recognition software. While efforts are made to proofread this document, sound alike and grammatical errors may occur. Departure - Departure Disposition: 01 Home, Self Care Clinical Impression: Cervical radiculopathy Neck muscle strain Qualifiers: Encounter type: initial encounter Qualified Code(s): S16.1XXA - Strain of muscle, fascia and tendon at neck level, initial encounter Condition: Good Instructions: ED Spasm Neck No Injury, ED Cervical Radiculopathy Follow-Up: your,doctor in 1 week [Other] Prescriptions: Meloxicam [Mobic] 7.5 mg PO BID PRN #20 tablet PRN Reason: Pain methocarbamoL [Robaxin] 500 mg PO Q6H PRN #10 tablet PRN Reason: muscle spasm Comments: Your prescriptions were sent to [facility] in [place]. Please follow-up with your doctor for further care or one of the walk-in clinics. The muscle relaxant and anti-inflammatory medication should help you with your pain. Forms: PCP List Discharge Date/Time: 08/01/23 21:50
[2023-08-01 21:50] VITALS: BP 144/74; O2SAT 98
== END 2023-08-01 21:50 | disposition home or self-care (01) ==
LOC: EDUNIT# → ED 18:00
DX: M54.12 Radiculopathy, cervical region (principal); I10 Essential (primary) hypertension; F17.200 Nicotine dependence, unspecified, uncomplicated
CPT/HCPCS: 99283; A9270

== ENCOUNTER 2023-08-16 20:46 | Outpatient (CLI) | payer MEDICARE | END 2023-08-16 23:59 | disposition critical access hospital (66) | LOC: EMS 20:46 | DX: S80.12XA Contusion of left lower leg, initial encounter (principal); W18.30XA Fall on same level, unspecified, initial encounter; Y92.89 Other specified places as the place of occurrence of the external cause | CPT/HCPCS: A0425; A0429 ==

== ENCOUNTER 2023-08-16 22:09 | Emergency (ER) | payer MEDICARE ==
[2023-08-16 22:23] VITALS: BP 130/88; O2SAT 97
--- NOTE | 2023-08-16 22:55 | XRAY Report ---
PROCEDURE: Ankle 3+V LT INDICATIONS: ankle inj TECHNIQUE: 3 views of the ankle were acquired. COMPARISON: Left foot x-ray 12/27/2020. FINDINGS: Bones: No fractures or dislocations. Distal fibular plate and screw hardware appears intact without surrounding fracture or lucency. Ankle mortise is normally aligned. No suspicious bony lesions. Mi ld plantar calcaneal these affect. Soft tissues: No tibiotalar joint effusion. Achilles tendon appears normal. IMPRESSION: No acute bony abnormality. If pain persists with conservative management, consider repeat x-ray in 10 -14 days or cross-sectional imaging. Reviewed by: Giorgi Woodard MD on 08/16/2023 10:53 PM PST Approved by: Giorgi Woodard MD on 08/16/2023 10:53 PM [facility] Station ID: [id number]
== END 2023-08-16 23:33 | disposition left against medical advice (07) ==
LOC: ED 22:09
DX: Z53.21 Procedure and treatment not carried out due to patient leaving prior to being seen by health care provider (principal)

== ENCOUNTER 2023-08-17 15:12 | Outpatient (CLI) | payer MEDICARE | END 2023-08-17 23:59 | disposition critical access hospital (66) | LOC: EMS 15:12 | DX: R56.9 Unspecified convulsions (principal); R45.1 Restlessness and agitation | CPT/HCPCS: A0425; A0429 ==

== ENCOUNTER 2023-08-17 15:34 | Emergency (ER) | payer MEDICARE ==
--- NOTE | 2023-08-17 16:31 | XRAY Report ---
PROCEDURE: Forearm RT INDICATIONS: Trauma TECHNIQUE: 2 views of the forearm were acquired. COMPARISON: Correlation is made with the accompanying elbow plain films. FINDINGS: Bones: There is an impacted, mildly comminuted fracture involving the distal radius, with dorsal angu lation. No associated fracture of the distal ulna can be seen. No radiocarpal dislocation can be seen . No loosening dislocation. Soft tissues: No suspicious soft tissue calcifications or masses. IMPRESSION: Distal radius fracture, with impaction, comminution, and angulation. Reviewed by: Neto Lundy MD on 08/17/2023 3:30 PM [facility] Approved by: Neto Lundy MD on 08/17/2023 3:30 PM [facility] Station ID: [id number]
--- NOTE | 2023-08-17 16:39 | XRAY Report ---
PROCEDURE: Elbow 3+V RT INDICATIONS: Trauma TECHNIQUE: 3 views of the elbow were acquired. COMPARISON: Correlation is made with the accompanying forearm plain films. FINDINGS: Bones: No fractures or dislocations. No suspicious bony lesions. Soft tissues: No effusion. No suspicious soft tissue calcifications or masses. IMPRESSION: No acute bony abnormality can be seen within the region of the elbow. Reviewed by: Neto Lundy MD on 08/17/2023 3:38 PM [facility] Approved by: Neto Lundy MD on 08/17/2023 3:38 PM [facility] Station ID: [id number]
[2023-08-17] MEDS ORDERED: BUPIVACAINE 0.5% PF 10 ML VIAL SUBQ STA (19:15)
[2023-08-17] MEDS ORDERED: ACETAMINOPHEN 325 MG TABLET PO STA (19:16)
[2023-08-17] MEDS ORDERED: oxyCODONE 5 MG TABLET PO STA (19:20)
--- NOTE | 2023-08-17 19:22 | ED Physician Documentation ---
History of Present Illness - Stated complaint Stated Complaint: RT ARM PX - Chief complaint Chief Complaint: Neuro - History obtained from History obtained from: Patient - Additonal information Additional information: 63-year-old female with history of seizure disorder presents to the emergency department today for what patient describes as a witnessed seizure. Patient was also seen in the emergency department yesterday for possible seizure and left leg pain without any fractures identified at that time. Patient reports she is having significant right arm pain she says that she is worried that it is broken. She denies any head pain any headache no nausea vomiting dizziness. Patient does appear to have swelling to her right wrist with limited range of motion due to the pain. Radial pulses strong CMS intact. 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 TIER: Hysterectomy - Present Medications Home Medications: Ambulatory Orders Medication Instructions Recorded Confirmed Hydroxyzine Pamoate 25 mg PO DAILY PRN 03/15/16 01/19/22 Clindamycin [Cleocin] 300 mg PO TID 6 Days #18 cap 07/19/21 01/19/22 Doxepin [SINEquan] 25 mg PO QPM 07/19/21 01/19/22 Gabapentin [Neurontin] 300 mg PO BID 07/19/21 01/19/22 Levetiracetam [Keppra] 500 mg PO BID 07/19/21 01/19/22 Oxycodone HCl/Acetaminophen 1 each PO Q6H PRN #15 tablet 07/19/21 01/19/22 [Percocet 5-325 mg Tablet] Phenytoin [Dilantin] 300 mg PO DAILY 07/19/21 01/19/22 Topiramate [Topamax] 150 mg PO BID 07/19/21 01/19/22 Venlafaxine HCl 150 mg PO DAILY 07/19/21 01/19/22 hydroCHLOROthiazide [Hydrodiuril] 12.5 mg PO DAILY 07/19/21 01/19/22 HYDROcod/ACETAM 5/325 [[place] 5/325] 1 tab PO BID PRN #10 tablet 10/03/21 01/19/22 Ibuprofen [Motrin] 600 mg PO Q6H PRN #30 tab 10/03/21 01/19/22 Sucralfate [Carafate] 1 gm PO ACHS #60 tablet 12/24/21 01/19/22 Esomeprazole Magnesium [Nexium] 40 mg PO DAILY #30 cap 04/09/22 Famotidine [Pepcid] 20 mg PO BID #60 tablet 04/09/22 Promethazine [Phenergan] 25 mg PO Q6H PRN #10 tab 04/09/22 traMADol [Ultram] 50 - 100 mg PO Q6H PRN #20 tablet 04/09/22 Ondansetron Odt [Zofran] 4 mg TL Q6H PRN #10 tablet 04/19/22 Topiramate [Topamax] 150 mg PO BID #60 tablet 05/22/23 Meloxicam [Mobic] 7.5 mg PO BID PRN #20 tablet 08/01/23 methocarbamoL [Robaxin] 500 mg PO Q6H PRN #10 tablet 08/01/23 Oxycodone HCl/Acetaminophen 1 each PO Q6HR PRN #15 tablet 08/17/23 [Percocet 5-325 mg Tablet] - Allergies Allergies/Adverse Reactions: Allergies Allergy/AdvReac Type Severity Reaction Status Date / Time codeine Allergy Rash Verified 08/16/23 22:15 - Social History Does the pt smoke?: Yes Smoking Status: Current every day smoker Does the pt drink ETOH?: No Does the pt have substance abuse?: No - Immunizations Immunizations are current?: Yes Immunizations: TDAP >10years/unknown - POLST Patient has POLST: No PD ED PE NORMAL - Vitals Vital signs reviewed: Yes - General General: Alert and oriented X 3 - HEENT HEENT: Atraumatic, PERRL - Cardiac Cardiac: RRR, No gallop, Strong equal pulses - Respiratory Respiratory: No respiratory distress, Clear bilaterally - Back Back: No CVA TTP, No spinal TTP - Derm Derm: Normal color, Warm and dry - Neuro Neuro: Alert and oriented X 3, condenser cleaner 2-12 intact, No motor deficit, No sensory deficit, Normal speech Eye Opening: Spontaneous Motor: Obeys Commands Verbal: Oriented GCS Score: 15 PD ED PE EXPANDED - Extremities Extremities: Deformity, Tenderness, Limited ROM, Swelling, Right wrist. No: Abrasion, Laceration (strong radial pulse, CMS intact) Results - Vitals Vitals: Vital Signs - 24 hr 08/17/23 08/17/23 08/17/23 15:56 20:01 21:45 Temperature 36 C L Heart Rate 100 97 70 Respiratory 18 17 18 Rate Blood Pressure 123/76 120/68 115/78 O2 Saturation 98 96 99 Oxygen O2 Source Room air - Rads (name of study) right forearm, wrist X-ray Relevant Findings:: Prelim report reviewed, Final report received (normal elbow, right distal radial fracture with mild angulation) Procedures - Splint (location) - Minor right arm Splint applied by: Nurse Type of splint: Fiberglass, Sugar tong (reverse) Other: Patient tolerated well, No complications, Neurovascular intact, Sling provided PD Medical Decision Making - ED course ED course: 63-year-old female presents to the emergency department via ambulance that she says that she has a witnessed seizure at home because she has not been consistently taking her home medications including her seizure medications. Patient reports right wrist pain. No head pain no focal neurological deficits does not appear to have any trauma to the head either. The Pt was found to have a closed distal radias fracture on XR of the right wrist. The Pt is otherwise well appearing, hemodynamically stable, and shows no evidence of neurovascular injury or compartment syndrome. Patient was placed in reverse sugar tong splint with manipulation of the distal radias after radial nerve block was attempted. Unfortunately patient was unable to get fully anesthetized with bupivacaine. She was given 1 oxycodone for her pain in the emergency department and did appreciate some relief with this as well as the sugar-tong splint and a right arm sling. Patient was offered antiseizure medications but she said that she would just take them when she gets home. Referral was made to the Ortho clinic for further evaluation and possible surgery. Patient was told to keep the splint on she was given strict return precautions. A prescription of Percocet was given to the patient for pain management. Departure - Departure Disposition: Home, Self Care Clinical Impression: Distal radius fracture, right Qualifiers: Encounter type: initial encounter Fracture type: closed Fracture morphology: unspecified fracture morphology Qualified Code(s): S52.501A - Unspecified fracture of the lower end of right radius, initial encounter for closed fracture Condition: Good Instructions: ED Fx Upper Ext Follow-Up: [facility] [Provider Group] Prescriptions: Oxycodone HCl/Acetaminophen [Percocet 5-325 mg Tablet] 1 each PO Q6HR PRN #15 tablet PRN Reason: Analgesia Comments: Thank you for trusting us with your care we have completed x-rays of your right arm and it reveals a distal radial fracture. We attempted to put it back in the most anatomically correct position as possible and inflates the splint on it. Please follow-up with orthopedic surgery here in [place] early sometime next week for further evaluation and possible surgery of your arm. Please come back to the emergency department for started to experience any numbness and tingling in the arm, if your fingers are starting to turn purple or blue, severe worsening pain. Alternate between Tylenol and ibuprofen for pain and discomfort keep elevated as much as possible to help with inflammation and swelling. Again please do not hesitate to return to the emergency department if you have any concerning symptoms. Forms: PCP List Discharge Date/Time: 08/17/23 21:45
[2023-08-17] MEDS ORDERED: PHENYTOIN CHEW 50 MG TABLET PO STA (20:52)
[2023-08-17] MEDS ORDERED: levETIRAcetam 250 MG TABLET PO STA (20:52)
[2023-08-17 21:46] VITALS: BP 115/78; O2SAT 99
== END 2023-08-17 21:45 | disposition home or self-care (01) ==
LOC: ED 15:34
DX: S52.501A Unspecified fracture of the lower end of right radius, initial encounter for closed fracture (principal); X58.XXXA Exposure to other specified factors, initial encounter; F17.200 Nicotine dependence, unspecified, uncomplicated; Z91.148 Patient's other noncompliance with medication regimen for other reason
CPT/HCPCS: 29105; 73080; 73090; 99283; 99284; A9270

== ENCOUNTER 2023-09-12 08:05 | Emergency (ER) | payer MEDICARE ==
[2023-09-12] MEDS ORDERED: hydrOXYzine PAMOATE 25 MG CAPSULE PO STA (08:22)
[2023-09-12] MEDS ORDERED: KETOROLAC 30 MG/ML VIAL IM STA (08:23)
--- NOTE | 2023-09-12 08:27 | ED Physician Documentation ---
History of Present Illness - Stated complaint Stated Complaint: PANIC ATTACK - Chief complaint Chief Complaint: MHE - History obtained from History obtained from: Patient, EMS - History of Present Illness Timing: Today - Additonal information Additional information: Nicole Campbell is a 63-year-old female who is currently undomiciled and living in the [place]. She is uncertain where the majority of her medications are and she has a seizure disorder and she has not been taking her seizure medications. She has had a seizure and broken her wrist 1 month ago. She has follow-up with orthopedics this week. Today the patient was up and about and began to have a whooshing feeling in her head and she became sensitive to any stimulus. She felt that cars were coming down the street while she was waiting for the bus work overwhelming. She presents to EMS as calm but does not allow blood pressure to be taken. She has had a cough for the past month and is having some difficulty getting a full deep breath. Review of Systems Constitutional: denies: Fever Eyes: denies: Decreased vision Ears: denies: Ear pain Nose: reports: Congestion Throat: denies: Sore throat Cardiac: denies: Chest pain / pressure, Palpitations Respiratory: reports: Dyspnea, Cough, Wheezing GI: denies: Nausea, Vomiting PD PAST MEDICAL HISTORY - Past Medical History Cardiovascular: Hypertension, High cholesterol Respiratory: None Neuro: Migraines, Seizure disorder, Other Endocrine/Autoimmune: None GI: None RN MED SURG: None : Kidney stones HEENT: None Psych: Anxiety Musculoskeletal: None Derm: None - Past Surgical History Past Surgical History: Yes /RN MED SURG: Hysterectomy - Present Medications Home Medications: Ambulatory Orders Medication Instructions Recorded Confirmed Hydroxyzine Pamoate 25 mg PO DAILY PRN 03/15/16 09/12/23 Clindamycin [Cleocin] 300 mg PO TID 6 Days #18 cap 07/19/21 09/12/23 Doxepin [SINEquan] 25 mg PO QPM 07/19/21 09/12/23 Gabapentin [Neurontin] 300 mg PO BID 07/19/21 09/12/23 Levetiracetam [Keppra] 500 mg PO BID 07/19/21 09/12/23 Oxycodone HCl/Acetaminophen 1 each PO Q6H PRN #15 tablet 07/19/21 09/12/23 [Percocet 5-325 mg Tablet] Phenytoin [Dilantin] 300 mg PO DAILY 07/19/21 09/12/23 Topiramate [Topamax] 150 mg PO BID 07/19/21 09/12/23 Venlafaxine HCl 150 mg PO DAILY 07/19/21 09/12/23 hydroCHLOROthiazide [Hydrodiuril] 12.5 mg PO DAILY 07/19/21 09/12/23 HYDROcod/ACETAM 5/325 [[place] 5/325] 1 tab PO BID PRN #10 tablet 10/03/21 09/12/23 Ibuprofen [Motrin] 600 mg PO Q6H PRN #30 tab 10/03/21 09/12/23 Sucralfate [Carafate] 1 gm PO ACHS #60 tablet 12/24/21 09/12/23 Esomeprazole Magnesium [Nexium] 40 mg PO DAILY #30 cap 04/09/22 09/12/23 Famotidine [Pepcid] 20 mg PO BID #60 tablet 04/09/22 09/12/23 Promethazine [Phenergan] 25 mg PO Q6H PRN #10 tab 04/09/22 09/12/23 traMADol [Ultram] 50 - 100 mg PO Q6H PRN #20 tablet 04/09/22 09/12/23 Ondansetron Odt [Zofran] 4 mg TL Q6H PRN #10 tablet 04/19/22 09/12/23 Topiramate [Topamax] 150 mg PO BID #60 tablet 05/22/23 09/12/23 Meloxicam [Mobic] 7.5 mg PO BID PRN #20 tablet 08/01/23 09/12/23 methocarbamoL [Robaxin] 500 mg PO Q6H PRN #10 tablet 08/01/23 09/12/23 Oxycodone HCl/Acetaminophen 1 each PO Q6HR PRN #15 tablet 08/17/23 09/12/23 [Percocet 5-325 mg Tablet] Albuterol Sulf [Ventolin Hfa 1 - 2 puffs INH Q4HR PRN #1 each 09/12/23 Inhaler] Azithromycin [Zithromax] 250 mg PO DAILY #6 tablet 09/12/23 hydrOXYzine pamoate [Hydroxyzine 25 - 50 mg PO Q6HR PRN #20 cap 09/12/23 Pamoate] - Allergies Allergies/Adverse Reactions: Allergies Allergy/AdvReac Type Severity Reaction Status Date / Time codeine Allergy Rash Verified 09/12/23 08:22 - Social History Does the pt smoke?: Yes Smoking Status: Current every day smoker Does the pt drink ETOH?: No Does the pt have substance abuse?: No - Immunizations Immunizations are current?: Yes Immunizations: TDAP >10years/unknown - POLST Patient has POLST: No PD ED PE NORMAL - Vitals Vital signs reviewed: Yes (hypertensive mild ) - General General: Alert and oriented X 3, No acute distress, Well developed/nourished - HEENT HEENT: Atraumatic, PERRL, EOMI, Ears normal, Pharynx benign, Other (dry mucous membranes) - Neck Neck: Supple, no meningeal sign, No bony TTP - Cardiac Cardiac: RRR, No murmur - Respiratory Respiratory: No respiratory distress, Other (diminished breath sounds and rhonchi in the left base ) - Abdomen Abdomen: Soft, Non tender - Back Back: No CVA TTP, No spinal TTP - Derm Derm: Normal color, Warm and dry, No rash - Extremities Extremities: No deformity, No edema - Neuro Neuro: Alert and oriented X 3, rn med surg 2-12 intact, No motor deficit, No sensory deficit, Normal speech Eye Opening: Spontaneous Motor: Obeys Commands Verbal: Oriented GCS Score: 15 - Psych Psych: Normal mood, Normal affect Results - Vitals Vitals: Vital Signs - 24 hr 09/12/23 09/12/23 09/12/23 08:12 09:31 10:07 Temperature 36.0 C L Heart Rate 83 66 67 Respiratory 18 18 18 Rate Blood Pressure 103/83 H 123/72 125/71 O2 Saturation 96 96 98 09/12/23 11:47 Temperature 36.5 C Heart Rate 66 Respiratory 16 Rate Blood Pressure 124/70 O2 Saturation 100 Oxygen O2 Source Room air - Labs Labs: Laboratory Tests 09/12/23 09/12/23 09/12/23 08:35 08:35 08:36 WBC 8.7 RBC 4.18 L Hgb 11.8 L Hct 36.2 L MCV 86.6 MCH 28.2 MCHC 32.6 RDW 13.5 Plt Count 282 MPV 9.8 Neut # (Auto) 6.8 H Lymph # (Auto) 1.1 L [place] # (Auto) 0.7 Eos # (Auto) 0.0 Baso # (Auto) 0.0 Absolute Nucleated RBC 0.00 Nucleated RBC % 0.0 Sodium 136 Potassium 3.3 L Chloride 102 Carbon Dioxide 24 Anion Gap 10.0 BUN 10 Creatinine 0.8 Estimated GFR (MDRD) 73 L Glucose 121 H Calcium 9.5 Total Bilirubin 0.8 AST 14 ALT 13 Alkaline Phosphatase 89 Total Protein 7.3 Albumin 3.6 Globulin 3.7 Albumin/Globulin Ratio 1.0 Lipase 23 Nasal Adenovirus (PCR) NOT DETECTED Nasal B. parapertussis DNA (PCR) NOT DETECTED Nasal Coronavir 229E PCR NOT DETECTED Nasal Coronavir HKU1 PCR NOT DETECTED Nasal Coronavir NL63 PCR NOT DETECTED Nasal Coronavir OC43 PCR NOT DETECTED Nasal Enterovir/Rhinovir PCR NOT DETECTED Nasal Influenza B PCR NOT DETECTED Nasal Influenza A PCR NOT DETECTED Nasal Parainfluen 1 PCR NOT DETECTED Nasal Parainfluen 2 PCR NOT DETECTED Nasal Parainfluen 3 PCR NOT DETECTED Nasal Parainfluen 4 PCR NOT DETECTED Nasal RSV (PCR) DETECTED A Nasal B.pertussis DNA PCR NOT DETECTED Nasal C.pneumoniae (PCR) NOT DETECTED Fred Human Metapneumo PCR NOT DETECTED Nasal M.pneumoniae (PCR) NOT DETECTED Nasal SARS-CoV-2 (PCR) NOT DETECTED - Rads (name of study) chest Relevant Findings:: Prelim report reviewed (Impression: Focal left basilar pneumonia. Progress films are recommended until clear.), EMP independent interpretation of test PD Medical Decision Making - ED course Complexity details: reviewed old records, reviewed results, re-evaluated patient, considered differential ED course: 63-year-old undomiciled female with an episode of anxiety today has had a cough for the past month chest x-ray demonstrates a infiltrate in the left base and she is treated for pneumonia she is given intravenous Rocephin as well as a liter of fluid we will place her on some azithromycin. She is positive for RSV today and we will provide an inhaler as well. She did have improvement in her anxiety with hydroxyzine and requests a fill for her hydroxyzine. Departure - Departure Disposition: 01 Home, Self Care Clinical Impression: RSV infection, Dehydration Pneumonia Qualifiers: Pneumonia type: due to unspecified organism Laterality: left Lung location: lower lobe of lung Qualified Code(s): J18.9 - Pneumonia, unspecified organism Condition: Stable Instructions: ED RSV Bronchiolitis, ED Dehydration, ED Pneumonia Adult Follow-Up: [facility] [place] [Provider Group] Prescriptions: Albuterol Sulf [Ventolin Hfa Inhaler] 1 - 2 puffs INH Q4HR PRN #1 each PRN Reason: Shortness Of Air/Wheezing hydrOXYzine pamoate [Hydroxyzine Pamoate] 25 - 50 mg PO Q6HR PRN #20 cap PRN Reason: Anxiety Azithromycin [Zithromax] 250 mg PO DAILY #6 tablet Comments: Richard, today it looks like you have pneumonia in the base of your left lung and you also tested positive for RSV. There is usually some reactive airway disease associated with this and I have E scribed a albuterol inhaler for your as well as some antibiotic to the [facility] in [place]. Forms: PCP List Discharge Date/Time: 09/12/23 11:47
[2023-09-12 08:41] LABS: BASOPHILS % (AUTO) 0.3 %; EOSINOPHILS % (AUTO) 0.1 %; HCT - HEMATOCRIT 36.2 % (37.0-47.0); HGB - HEMOGLOBIN 11.8 g/dL (12.0-16.0); LYMPHOCYTES # (AUTO) 1.1 10^3/uL (1.5-3.5); LYMPHOCYTES % (AUTO) 12.3 %; MEAN CORPUSCULAR HEMOGLOBIN 28.2 pg (27.0-31.0); MEAN CORPUSCULAR HGB CONC 32.6 g/dL (32.0-36.0); MEAN CORPUSCULAR VOLUME 86.6 fL (81.0-99.0); MEAN PLATELET VOLUME 9.8 fL (7.9-10.8); MONOCYTES # (AUTO) 0.7 10^3/uL (0.0-1.0); MONOCYTES % (AUTO) 8.5 %; NEUTROPHILS # (AUTO) 6.8 10^3/uL (1.5-6.6); NEUTROPHILS % (AUTO) 78.5 %; PLT - PLATELET COUNT 282 10^3/uL (130-450); RED BLOOD COUNT 4.18 10^6/uL (4.20-5.40); RED CELL DISTRIBUTION WIDTH 13.5 % (12.0-15.0); WHITE BLOOD COUNT 8.7 x10^3/uL (4.8-10.8)
--- NOTE | 2023-09-12 08:41 | XRAY Report ---
PROCEDURE: Chest 1V INDICATIONS: soa TECHNIQUE: One view of the chest was acquired. COMPARISON: 04/19/2022. FINDINGS: Surgical changes and devices: None. Lungs and pleura: No pleural effusions or pneumothorax. Focal left basilar pneumonia. Mediastinum: Mediastinal contours appear normal. Heart size is normal. Bones and chest wall: No suspicious bony lesions. Overlying soft tissues appear unremarkable. IMPRESSION: Focal left basilar pneumonia. Progress films are recommended until clear. Reviewed by: Joe Adler MD on 09/12/2023 8:40 AM PST Approved by: Joe Adler MD on 09/12/2023 8:40 AM PST Station ID: [id number]
[2023-09-12] MEDS ORDERED: cefTRIAXone 1 GM in SODIUM CHLORIDE 0.9% MINIBAG 100 ML IV STA (08:44)
[2023-09-12 08:56] LABS: ALBUMIN 3.6 g/dL (3.2-5.5); BILIRUBIN,TOTAL 0.8 mg/dL (0.2-1.0); CALCIUM 9.5 mg/dL (8.5-10.3); CREATININE 0.8 mg/dL (0.6-1.3); POTASSIUM 3.3 mmol/L (3.5-4.5); TOTAL PROTEIN 7.3 g/dL (6.4-8.9)
[2023-09-12] MEDS ORDERED: SODIUM CHLORIDE 0.9% 1,000 ML IV STA (09:26)
[2023-09-12 09:42] LABS: B. PARAPERTUSSIS- RESP PCR PAN NOT DETECTED; B. PERTUSSIS- RESP PCR PANEL NOT DETECTED; C. PNEUMONIAE- RESP PCR PANEL NOT DETECTED; CORONAVIRUS 229E-RESP PCR NOT DETECTED; CORONAVIRUS HKU1-RESP PCR NOT DETECTED; CORONAVIRUS NL63-RESP PCR NOT DETECTED; CORONAVIRUS OC43-RESP PCR NOT DETECTED; HUMAN METAPNEUMOVIRUS NOT DETECTED; INFLUENZA A- RESP PCR PANEL NOT DETECTED; INFLUENZA B - RESP PCR PANEL NOT DETECTED; M. PNEUMONIAE- RESP PCR PANEL NOT DETECTED; PARAINFLUENZA VIRUS 1 NOT DETECTED; PARAINFLUENZA VIRUS 2 NOT DETECTED; PARAINFLUENZA VIRUS 3 NOT DETECTED; PARAINFLUENZA VIRUS 4 NOT DETECTED; RHINOVIRUS/ENTEROVIRUS NOT DETECTED; RSV- RESP PCR PANEL DETECTED; SARS-CoV-2 -RESP PCR PANEL NOT DETECTED
[2023-09-12 11:55] VITALS: BP 124/70; O2SAT 100
== END 2023-09-12 11:47 | disposition home or self-care (01) ==
LOC: EDUNIT# → ED 08:05
DX: J18.9 Pneumonia, unspecified organism (principal); B97.4 Respiratory syncytial virus as the cause of diseases classified elsewhere; E86.0 Dehydration; I10 Essential (primary) hypertension; F17.200 Nicotine dependence, unspecified, uncomplicated; Z59.01 Sheltered homelessness; Z11.52 Encounter for screening for COVID-19
CPT/HCPCS: 36415; 71045; 80053; 83690; 85025; 87633; 96365; 96372; 99284; A9270

== ENCOUNTER 2023-10-14 21:32 | Outpatient (CLI) | payer MEDICARE | END 2023-10-14 21:33 | disposition critical access hospital (66) | LOC: EMS 21:32 | DX: M79.631 Pain in right forearm (principal); W22.8XXA Striking against or struck by other objects, initial encounter | CPT/HCPCS: A0425; A0429 ==

== ENCOUNTER 2023-10-14 21:43 | Emergency (ER) | payer MEDICARE ==
[2023-10-14 21:50] VITALS: BP 140/96
--- NOTE | 2023-10-14 23:13 | ED Physician Documentation ---
PD HPI UPPER EXT INJURY - Stated complaint Stated Complaint: RT ARM PX - Chief complaint Chief Complaint: Trauma Ext PD PAST MEDICAL HISTORY - Past Medical History Cardiovascular: Hypertension, High cholesterol Respiratory: None Neuro: Migraines, Seizure disorder, Other Endocrine/Autoimmune: None GI: None [employer]: None : Kidney stones HEENT: None Psych: Anxiety Musculoskeletal: None Derm: None - Past Surgical History Past Surgical History: Yes /[employer]: Hysterectomy - Present Medications Home Medications: Ambulatory Orders Medication Instructions Recorded Confirmed Hydroxyzine Pamoate 25 mg PO DAILY PRN 03/15/16 09/12/23 Clindamycin [Cleocin] 300 mg PO TID 6 Days #18 cap 07/19/21 09/12/23 Doxepin [SINEquan] 25 mg PO QPM 07/19/21 09/12/23 Gabapentin [Neurontin] 300 mg PO BID 07/19/21 09/12/23 Levetiracetam [Keppra] 500 mg PO BID 07/19/21 09/12/23 Oxycodone HCl/Acetaminophen 1 each PO Q6H PRN #15 tablet 07/19/21 09/12/23 [Percocet 5-325 mg Tablet] Phenytoin [Dilantin] 300 mg PO DAILY 07/19/21 09/12/23 Topiramate [Topamax] 150 mg PO BID 07/19/21 09/12/23 Venlafaxine HCl 150 mg PO DAILY 07/19/21 09/12/23 hydroCHLOROthiazide [Hydrodiuril] 12.5 mg PO DAILY 07/19/21 09/12/23 HYDROcod/ACETAM 5/325 [[place] 5/325] 1 tab PO BID PRN #10 tablet 10/03/21 09/12/23 Ibuprofen [Motrin] 600 mg PO Q6H PRN #30 tab 10/03/21 09/12/23 Sucralfate [Carafate] 1 gm PO ACHS #60 tablet 12/24/21 09/12/23 Esomeprazole Magnesium [Nexium] 40 mg PO DAILY #30 cap 04/09/22 09/12/23 Famotidine [Pepcid] 20 mg PO BID #60 tablet 04/09/22 09/12/23 Promethazine [Phenergan] 25 mg PO Q6H PRN #10 tab 04/09/22 09/12/23 traMADol [Ultram] 50 - 100 mg PO Q6H PRN #20 tablet 04/09/22 09/12/23 Ondansetron Odt [Zofran] 4 mg TL Q6H PRN #10 tablet 04/19/22 09/12/23 Topiramate [Topamax] 150 mg PO BID #60 tablet 05/22/23 09/12/23 Meloxicam [Mobic] 7.5 mg PO BID PRN #20 tablet 08/01/23 09/12/23 methocarbamoL [Robaxin] 500 mg PO Q6H PRN #10 tablet 08/01/23 09/12/23 Oxycodone HCl/Acetaminophen 1 each PO Q6HR PRN #15 tablet 08/17/23 09/12/23 [Percocet 5-325 mg Tablet] Albuterol Sulf [Ventolin Hfa 1 - 2 puffs INH Q4HR PRN #1 each 09/12/23 Inhaler] Azithromycin [Zithromax] 250 mg PO DAILY #6 tablet 09/12/23 hydrOXYzine pamoate [Hydroxyzine 25 - 50 mg PO Q6HR PRN #20 cap 09/12/23 Pamoate] - Allergies Allergies/Adverse Reactions: Allergies Allergy/AdvReac Type Severity Reaction Status Date / Time codeine Allergy Rash Verified 09/12/23 08:22 - Social History Does the pt smoke?: Yes Smoking Status: Current every day smoker Does the pt drink ETOH?: No Does the pt have substance abuse?: No - Immunizations Immunizations are current?: Yes Immunizations: TDAP >10years/unknown - POLST Patient has POLST: No Results - Vitals Vitals: Vital Signs - 24 hr 10/14/23 21:45 Temperature 36.9 C Heart Rate 87 Respiratory 18 Rate Blood Pressure 140/96 H O2 Saturation 97 Oxygen O2 Source Room air Departure - Departure
[2023-10-15 00:32] VITALS: O2SAT 98
== END 2023-10-14 23:18 | disposition left against medical advice (07) ==
LOC: EDUNIT# → EDBD → ED 21:43
DX: R52 Pain, unspecified (principal); Z53.21 Procedure and treatment not carried out due to patient leaving prior to being seen by health care provider

== ENCOUNTER 2023-11-05 20:19 | Outpatient (CLI) | payer MEDICARE | END 2023-11-05 23:59 | disposition critical access hospital (66) | LOC: EMS 20:19 | DX: R07.9 Chest pain, unspecified (principal); R51.9 Headache, unspecified | CPT/HCPCS: A0425; A0429 ==

== ENCOUNTER 2023-11-05 20:29 | Emergency (ER) | payer MEDICARE ==
--- NOTE | 2023-11-05 21:11 | ED Physician Documentation ---
PD HPI CHEST PAIN - Stated complaint Stated Complaint: CP - Chief complaint Chief Complaint: Cardiac - History obtained from History obtained from: Patient - Additional information Additional information: BIBA. HPI from patient. Patient c/o chest pain, midline and left para-sternal, radiating to LUE . 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 No inciting event, no exacerbating nor ameliorating factors. Denies h/o similar symptoms. Denies dyspnea, n/v. Symptoms resolved by the time of this H+P Review of Systems Cardiac: reports: Chest pain / pressure. denies: Palpitations Respiratory: denies: Dyspnea, Cough PD PAST MEDICAL HISTORY - Past Medical History Cardiovascular: Hypertension, High cholesterol Respiratory: None Neuro: Migraines, Seizure disorder, Other Endocrine/Autoimmune: None GI: None [employer]: None : Kidney stones HEENT: None Psych: Anxiety Musculoskeletal: None Derm: None - Past Surgical History Past Surgical History: Yes /[employer] [employer]: Hysterectomy - Present Medications Home Medications: Ambulatory Orders Medication Instructions Recorded Confirmed Hydroxyzine Pamoate 25 mg PO DAILY PRN 03/15/16 09/12/23 Clindamycin [Cleocin] 300 mg PO TID 6 Days #18 cap 07/19/21 09/12/23 Doxepin [SINEquan] 25 mg PO QPM 07/19/21 09/12/23 Gabapentin [Neurontin] 300 mg PO BID 07/19/21 09/12/23 Levetiracetam [Keppra] 500 mg PO BID 07/19/21 09/12/23 Oxycodone HCl/Acetaminophen 1 each PO Q6H PRN #15 tablet 07/19/21 09/12/23 [Percocet 5-325 mg Tablet] Phenytoin [Dilantin] 300 mg PO DAILY 07/19/21 09/12/23 Topiramate [Topamax] 150 mg PO BID 07/19/21 09/12/23 Venlafaxine HCl 150 mg PO DAILY 07/19/21 09/12/23 hydroCHLOROthiazide [Hydrodiuril] 12.5 mg PO DAILY 07/19/21 09/12/23 HYDROcod/ACETAM 5/325 [[place] 5/325] 1 tab PO BID PRN #10 tablet 10/03/21 09/12/23 Ibuprofen [Motrin] 600 mg PO Q6H PRN #30 tab 10/03/21 09/12/23 Sucralfate [Carafate] 1 gm PO ACHS #60 tablet 12/24/21 09/12/23 Esomeprazole Magnesium [Nexium] 40 mg PO DAILY #30 cap 04/09/22 09/12/23 Famotidine [Pepcid] 20 mg PO BID #60 tablet 04/09/22 09/12/23 Promethazine [Phenergan] 25 mg PO Q6H PRN #10 tab 04/09/22 09/12/23 traMADol [Ultram] 50 - 100 mg PO Q6H PRN #20 tablet 04/09/22 09/12/23 Ondansetron Odt [Zofran] 4 mg TL Q6H PRN #10 tablet 04/19/22 09/12/23 Topiramate [Topamax] 150 mg PO BID #60 tablet 05/22/23 09/12/23 Meloxicam [Mobic] 7.5 mg PO BID PRN #20 tablet 08/01/23 09/12/23 methocarbamoL [Robaxin] 500 mg PO Q6H PRN #10 tablet 08/01/23 09/12/23 Oxycodone HCl/Acetaminophen 1 each PO Q6HR PRN #15 tablet 08/17/23 09/12/23 [Percocet 5-325 mg Tablet] Albuterol Sulf [Ventolin Hfa 1 - 2 puffs INH Q4HR PRN #1 each 09/12/23 Inhaler] Azithromycin [Zithromax] 250 mg PO DAILY #6 tablet 09/12/23 hydrOXYzine pamoate [Hydroxyzine 25 - 50 mg PO Q6HR PRN #20 cap 09/12/23 Pamoate] - Allergies Allergies/Adverse Reactions: Allergies Allergy/AdvReac Type Severity Reaction Status Date / Time codeine Allergy Severe Rash Verified 11/05/23 20:52 - Social History Does the pt smoke?: Yes Smoking Status: Current every day smoker Does the pt drink ETOH?: No Does the pt have substance abuse?: No - Immunizations Immunizations are current?: Yes Immunizations: TDAP >10years/unknown - POLST Patient has POLST: No PD ED PE NORMAL - Vitals Vital signs reviewed: Yes - General General: Alert and oriented X 3, No acute distress, Well developed/nourished - HEENT HEENT: Moist mucous membranes - Cardiac Cardiac: RRR, No murmur, No gallop, No rub - Respiratory Respiratory: No respiratory distress - Abdomen Abdomen: Soft, Non tender - Derm Derm: Normal color, Warm and dry - Extremities Extremities: No edema - Neuro Neuro: Alert and oriented X 3 PD ED PE EXPANDED - Respiratory Respiratory: Wheezing (trace bilateral expiratory ) Results - Vitals Vitals: Oxygen O2 Source Room air - EKG (time done) No standard instances EKG releavant findings:: EKG personally interpreted by author of this note. Relevant findings are: Rate: Rate (enter#) (71) Rhythm: NSR [place]: Normal Intervals: Normal PA QRS: Normal Ischemia: Normal ST segments - Labs Labs: Laboratory Tests 11/05/23 11/05/23 21:23 21:23 WBC 4.8 RBC 4.46 Hgb 12.6 Hct 39.7 MCV 89.0 MCH 28.3 MCHC 31.7 L RDW 14.0 Plt Count 249 MPV 9.6 Neut # (Auto) 2.6 Lymph # (Auto) 1.6 [place] # (Auto) 0.4 Eos # (Auto) 0.2 Baso # (Auto) 0.1 Absolute Nucleated RBC 0.00 Nucleated RBC % 0.0 Sodium 139 Potassium 3.5 Chloride 107 Carbon Dioxide 25 Anion Gap 7.0 BUN 14 Creatinine 0.6 Estimated GFR (MDRD) 102 Glucose 95 Calcium 9.8 Total Bilirubin 0.3 AST 14 ALT 10 Alkaline Phosphatase 79 Troponin I High Sens 3.3 Total Protein 6.7 Albumin 3.9 Globulin 2.8 Albumin/Globulin Ratio 1.4 Lipase 52 - Rads (name of study) chest xray Relevant Findings:: Prelim report reviewed, See rad report PD Medical Decision Making - ED course Complexity details: reviewed results, re-evaluated patient, considered differential, d/w patient ED course: CBC and ER abdominal panel are entirely normal except for insignificant/noncontributory finding of elevated MCHC. Normal hs-cTn. Normal EKG and CXR. Symptoms resolved shortly before my H+P and she reports she remains asymptomatic on reevaluation prior to d/c. Results d/w patient, return precautions reviewed, follow up with PCP recommended for reevaluation. Etiology of symptoms is not apparent at this time. Departure - Departure Disposition: 01 Home, Self Care Clinical Impression: Chest pain Qualifiers: Chest pain type: unspecified Qualified Code(s): R07.9 - Chest pain, unspecified Condition: Good Instructions: ED Chest Pain Atypical Unkn Cause Comments: There were no concerning nor diagnostic findings on tonight's tests including the EKG, chest x-ray, and blood tests. The blood tests included a cardiac enzyme test which was normal, further decreasing suspicion that your chest pain is due to a dangerous cardiac problem such as angina or a heart attack. Realize that the test results do not eliminate that possibility; for this reason, it is important that you follow-up with your primary care provider, next available appointment, for reevaluation. You might benefit from further testing such as a stress test at the discretion of your primary care provider. Discharge Date/Time: 11/05/23 22:57
[2023-11-05 21:27] LABS: BASOPHILS # (AUTO) 0.1 10^3/uL (0.0-0.1); BASOPHILS % (AUTO) 2.1 %; EOSINOPHILS # (AUTO) 0.2 10^3/uL (0.0-0.7); EOSINOPHILS % (AUTO) 3.3 %; HCT - HEMATOCRIT 39.7 % (37.0-47.0); HGB - HEMOGLOBIN 12.6 g/dL (12.0-16.0); LYMPHOCYTES # (AUTO) 1.6 10^3/uL (1.5-3.5); LYMPHOCYTES % (AUTO) 33.4 %; MEAN CORPUSCULAR HEMOGLOBIN 28.3 pg (27.0-31.0); MEAN CORPUSCULAR HGB CONC 31.7 g/dL (32.0-36.0); MEAN PLATELET VOLUME 9.6 fL (7.9-10.8); MONOCYTES # (AUTO) 0.4 10^3/uL (0.0-1.0); MONOCYTES % (AUTO) 7.9 %; NEUTROPHILS # (AUTO) 2.6 10^3/uL (1.5-6.6); NEUTROPHILS % (AUTO) 53.3 %; PLT - PLATELET COUNT 249 10^3/uL (130-450); RED BLOOD COUNT 4.46 10^6/uL (4.20-5.40); WHITE BLOOD COUNT 4.8 x10^3/uL (4.8-10.8)
[2023-11-05 21:58] LABS: ALBUMIN 3.9 g/dL (3.2-5.5); ALBUMIN/GLOBULIN RATIO 1.4 (1.0-2.2); BILIRUBIN,TOTAL 0.3 mg/dL (0.2-1.0); CALCIUM 9.8 mg/dL (8.5-10.3); CREATININE 0.6 mg/dL (0.6-1.3); POTASSIUM 3.5 mmol/L (3.5-4.5); TOTAL PROTEIN 6.7 g/dL (6.4-8.9)
[2023-11-05 22:01] LABS: TROPONIN I HIGH SENSITIVITY 3.3 ng/L (2.3-14.8)
--- NOTE | 2023-11-05 22:16 | XRAY Report ---
PROCEDURE: Chest 1V INDICATIONS: Chest pain TECHNIQUE: One view of the chest was acquired. COMPARISON: 09/12/2023 FINDINGS: Surgical changes and devices: None. Lungs and pleura: No pleural effusions or pneumothorax. Lungs are clear. Mediastinum: Mediastinal contours appear normal. Heart size is normal. Bones and chest wall: No suspicious bony lesions. Overlying soft tissues appear unremarkable. IMPRESSION: No acute cardiopulmonary process. Reviewed by: Que Smith MD on 11/05/2023 10:14 PM PDT Approved by: Que Smith MD on 11/05/2023 10:14 PM PDT Station ID: [id number]
[2023-11-05 22:55] VITALS: BP 151/84; O2SAT 98
== END 2023-11-05 22:57 | disposition home or self-care (01) ==
LOC: EDUNIT# → ED 20:29
DX: R07.9 Chest pain, unspecified (principal); I10 Essential (primary) hypertension; E78.00 Pure hypercholesterolemia, unspecified; G40.909 Epilepsy, unspecified, not intractable, without status epilepticus; Z87.442 Personal history of urinary calculi; Z79.899 Other long term (current) drug therapy; F17.200 Nicotine dependence, unspecified, uncomplicated
CPT/HCPCS: 36415; 80053; 83690; 84484; 85025; 93005; 99283

== ENCOUNTER 2023-11-13 15:32 | Outpatient (CLI) | payer MEDICARE | END 2023-11-13 15:33 | disposition critical access hospital (66) | LOC: EMS 15:32 | DX: R56.9 Unspecified convulsions (principal); R51.9 Headache, unspecified; R11.0 Nausea | CPT/HCPCS: A0425; A0427 ==

== ENCOUNTER 2023-11-13 15:56 | Emergency (ER) | payer MEDICARE ==
--- NOTE | 2023-11-13 15:51 | ED Physician Documentation ---
PD HPI SEIZURE - Stated complaint Stated Complaint: SZ - History obtained from History obtained from: EMS - History of Present Illness Timing - onset: Today Witnessed: Unwitnessed Number of seizures: Single Description of seizure activity: Generalized (pt felt confused as if post ictal. hisotry of seizures and felt as she does after having one. Has been out of AED f or 2 days at least, so wanted to come to ED for Rx/meds. No URI or recent illness. She was trying to remember her meds. States Topirimate. does not take dilantin/Keppra.) History of seizures: Known seizure disorder (I did not see any Rx refills on pharmacy list for the past 3 months at least. Old med list on record has several meds. She states topirimate yes. Not dilantin. not sure on depakote. not familiar with Keppra.) Contributing factors: Out of meds Similar symptoms before: Diagnosis (seisures since teenager due to TBI.) Review of Systems Constitutional: denies: Fever Nose: denies: Rhinorrhea / runny nose, Congestion Throat: denies: Sore throat Respiratory: denies: Cough Neurologic: reports: Headache (common symptom for her after seizure.) PD PAST MEDICAL HISTORY - Past Medical History Cardiovascular: None Respiratory: Asthma Neuro: Seizure disorder Endocrine/Autoimmune: None - Present Medications Home Medications: Ambulatory Orders Medication Instructions Recorded Confirmed Hydroxyzine Pamoate 25 mg PO DAILY PRN 03/15/16 11/13/23 Phenytoin [Dilantin] 300 mg PO DAILY 07/19/21 11/13/23 Topiramate [Topamax] 150 mg PO BID 07/19/21 11/13/23 Ibuprofen [Motrin] 600 mg PO Q6H PRN #30 tab 10/03/21 11/13/23 Topiramate [Topamax] 150 mg PO BID #60 tablet 05/22/23 11/13/23 Albuterol Sulf [Ventolin Hfa 1 - 2 puffs INH Q4HR PRN #1 each 09/12/23 11/13/23 Inhaler] hydrOXYzine pamoate [Hydroxyzine 25 - 50 mg PO Q6HR PRN #20 cap 09/12/23 11/13/23 Pamoate] Topiramate [Topamax] 150 mg PO BID #90 tablet 11/13/23 - Allergies Allergies/Adverse Reactions: Allergies Allergy/AdvReac Type Severity Reaction Status Date / Time codeine Allergy Severe Rash Verified 11/13/23 16:13 PD ED PE NORMAL - Vitals Vital signs reviewed: Yes - General General: Alert and oriented X 3, Well developed/nourished - HEENT HEENT: Atraumatic, Pharynx benign - Neck Neck: Supple, no meningeal sign, No bony TTP, No adenopathy - Cardiac Cardiac: RRR, No murmur - Respiratory Respiratory: Clear bilaterally - Derm Derm: Normal color, Warm and dry - Extremities Extremities: No tenderness to palpate - Neuro Neuro: Alert and oriented X 3 (though sluggish to answer the time and place. Seems a bit confused/postictal still. ), motor setter 2-12 intact, No motor deficit, No sensory deficit, Normal speech, Other Results - Vitals Vitals: Oxygen O2 Source Room air - Labs Labs: Laboratory Tests 11/13/23 11/13/23 16:13 16:13 WBC 6.3 RBC 4.39 Hgb 12.5 Hct 38.3 MCV 87.2 MCH 28.5 MCHC 32.6 RDW 13.8 Plt Count 214 MPV 9.8 Neut # (Auto) 5.2 Lymph # (Auto) 0.8 L [place] # (Auto) 0.2 Eos # (Auto) 0.0 Baso # (Auto) 0.0 Absolute Nucleated RBC 0.00 Nucleated RBC % 0.0 Sodium 137 Potassium 3.8 Chloride 106 Carbon Dioxide 26 Anion Gap 5.0 L BUN 8 Creatinine 0.5 L Estimated GFR (MDRD) 125 Glucose 101 Calcium 9.6 Magnesium 2.0 Total Bilirubin 0.4 AST 14 ALT 10 Alkaline Phosphatase 86 Total Protein 6.8 Albumin 3.9 Globulin 2.9 Albumin/Globulin Ratio 1.3 Lipase 29 Last Dose Date UNKNOWN Last Dose Time UNKNOWN Phenytoin < 0.5 Valproic Acid < 4.0 Ethyl Alcohol < 10.0 PD Medical Decision Making - ED course Complexity details: reviewed old records (pharmacy refill lists did not have any recent ones for months. Given dose Keppra here as I thought would be most likely and was on med list. But she states Topirimate for sure. So will give Rx for that for now. ), re-evaluated patient (KING improved and more remembering but still could only state topirimate as her AED.), d/w patient Departure - Departure Disposition: 01 Home, Self Care Clinical Impression: Seizure, Seizure secondary to subtherapeutic anticonvulsant medication, Seizure disorder Condition: Stable Record reviewed to determine appropriate education?: Yes Prescriptions: Topiramate [Topamax] 150 mg PO BID #90 tablet Comments: Stay well-hydrated. Resume your topiramate medication 150 mg twice daily. If you become aware that you should be on other medications, give a call later and we can send in other medicines as well. I sent your prescription to your preferred pharmacy. Forms: PCP List Discharge Date/Time: 11/13/23 19:12
[2023-11-13 16:21] VITALS: O2SAT 97
[2023-11-13 16:24] LABS: BASOPHILS % (AUTO) 0.6 %; EOSINOPHILS % (AUTO) 0.3 %; HCT - HEMATOCRIT 38.3 % (37.0-47.0); HGB - HEMOGLOBIN 12.5 g/dL (12.0-16.0); LYMPHOCYTES # (AUTO) 0.8 10^3/uL (1.5-3.5); LYMPHOCYTES % (AUTO) 12.7 %; MEAN CORPUSCULAR HEMOGLOBIN 28.5 pg (27.0-31.0); MEAN CORPUSCULAR HGB CONC 32.6 g/dL (32.0-36.0); MEAN CORPUSCULAR VOLUME 87.2 fL (81.0-99.0); MEAN PLATELET VOLUME 9.8 fL (7.9-10.8); MONOCYTES # (AUTO) 0.2 10^3/uL (0.0-1.0); MONOCYTES % (AUTO) 3.7 %; NEUTROPHILS # (AUTO) 5.2 10^3/uL (1.5-6.6); NEUTROPHILS % (AUTO) 82.5 %; PLT - PLATELET COUNT 214 10^3/uL (130-450); RED BLOOD COUNT 4.39 10^6/uL (4.20-5.40); RED CELL DISTRIBUTION WIDTH 13.8 % (12.0-15.0); WHITE BLOOD COUNT 6.3 x10^3/uL (4.8-10.8)
[2023-11-13] MEDS: ONDANSETRON 4 MG/2 ML VIAL IVP STA (16:24)
[2023-11-13] MEDS: KETOROLAC 15 MG/ML VIAL IVP STA (16:27)
[2023-11-13] MEDS: HYDROmorphone 0.5 MG/0.5 ML SYRINGE IVP STA (16:30)
[2023-11-13] MEDS: levETIRAcetam 500 MG/5 ML VIAL IVP STA (16:33)
[2023-11-13] MEDS: SODIUM CHLORIDE 0.9% 1,000 ML IV STA ×2 (16:34→17:41)
[2023-11-13 16:40] LABS: ALBUMIN 3.9 g/dL (3.2-5.5); ALBUMIN/GLOBULIN RATIO 1.3 (1.0-2.2); ALKALINE PHOSPHATASE 86 IU/L (42-121); ALT ALANINE AMINOTRANSFERASE 10 IU/L (10-60); AST ASPARTATE AMINOTRANSFERASE 14 IU/L (10-42); BILIRUBIN,TOTAL 0.4 mg/dL (0.2-1.0); BUN - BLOOD UREA NITROGEN 8 mg/dL (6-20); CALCIUM 9.6 mg/dL (8.5-10.3); CARBON DIOXIDE - CO2 26 mmol/L (21-32); CHLORIDE 106 mmol/L (101-111); CREATININE 0.5 mg/dL (0.6-1.3); ETOH - ETHANOL < 10.0 mg/dL; GFR - MDRD 125 (>89); GLUCOSE 101 mg/dL (74-104); LIPASE 29 U/L (11-82); PHENYTOIN (DILANTIN) < 0.5 ug/mL; POTASSIUM 3.8 mmol/L (3.5-4.5); SODIUM 137 mmol/L (135-145); TOTAL PROTEIN 6.8 g/dL (6.4-8.9); VALPROIC ACID (DEPAKOTE) < 4.0 ug/mL
[2023-11-13] MEDS: TOPIRAMATE 100 MG TABLET PO STA (17:35)
[2023-11-13] MEDS: ACETAMINOPHEN 500 MG TABLET PO STA (17:35)
[2023-11-13 19:15] VITALS: BP 118/73
== END 2023-11-13 19:12 | disposition home or self-care (01) ==
LOC: EDUNIT# → ED 15:56
DX: G40.909 Epilepsy, unspecified, not intractable, without status epilepticus (principal); T42.76XA Underdosing of unspecified antiepileptic and sedative-hypnotic drugs, initial encounter; Z91.138 Patient's unintentional underdosing of medication regimen for other reason; J45.909 Unspecified asthma, uncomplicated; Z79.899 Other long term (current) drug therapy
CPT/HCPCS: 36415; 80053; 80164; 80177; 80185; 83690; 83735; 85025; 96374; 96375; 99284; 99285; A9270; G0480; J1170; 82077

== ENCOUNTER 2023-12-12 10:23 | Outpatient (CLI) | payer MEDICARE | END 2023-12-12 10:24 | disposition critical access hospital (66) | LOC: EMS 10:23 | DX: R53.1 Weakness (principal); R29.6 Repeated falls; R51.9 Headache, unspecified | CPT/HCPCS: A0425; A0429 ==

== ENCOUNTER 2023-12-12 10:39 | Emergency (ER) | payer MEDICARE ==
[2023-12-12 11:16] LABS: BASOPHILS # (AUTO) 0.1 10^3/uL (0.0-0.1); BASOPHILS % (AUTO) 1.7 %; EOSINOPHILS # (AUTO) 0.1 10^3/uL (0.0-0.7); EOSINOPHILS % (AUTO) 2.4 %; HCT - HEMATOCRIT 40.2 % (37.0-47.0); HGB - HEMOGLOBIN 12.7 g/dL (12.0-16.0); LYMPHOCYTES # (AUTO) 1.6 10^3/uL (1.5-3.5); MEAN CORPUSCULAR HEMOGLOBIN 27.7 pg (27.0-31.0); MEAN CORPUSCULAR HGB CONC 31.6 g/dL (32.0-36.0); MEAN CORPUSCULAR VOLUME 87.8 fL (81.0-99.0); MEAN PLATELET VOLUME 9.8 fL (7.9-10.8); MONOCYTES # (AUTO) 0.4 10^3/uL (0.0-1.0); MONOCYTES % (AUTO) 7.2 %; NEUTROPHILS # (AUTO) 3.2 10^3/uL (1.5-6.6); NEUTROPHILS % (AUTO) 59.5 %; PLT - PLATELET COUNT 231 10^3/uL (130-450); RED BLOOD COUNT 4.58 10^6/uL (4.20-5.40); RED CELL DISTRIBUTION WIDTH 13.9 % (12.0-15.0); WHITE BLOOD COUNT 5.4 x10^3/uL (4.8-10.8)
[2023-12-12] MEDS: ACETAMINOPHEN 325 MG TABLET PO STA (11:16)
[2023-12-12] MEDS: SODIUM CHLORIDE 0.9% 1,000 ML IV STA (11:16)
[2023-12-12 11:33] LABS: ALBUMIN 4.1 g/dL (3.2-5.5); ALBUMIN/GLOBULIN RATIO 1.4 (1.0-2.2); BILIRUBIN,TOTAL 0.5 mg/dL (0.2-1.0); CALCIUM 9.6 mg/dL (8.5-10.3); CREATININE 0.7 mg/dL (0.6-1.3); POTASSIUM 3.8 mmol/L (3.5-4.5); TOTAL PROTEIN 7.1 g/dL (6.4-8.9)
[2023-12-12 11:40] LABS: BILIRUBIN,URINE NEGATIVE (NEGATIVE); GLUCOSE, URINE (UA) NEGATIVE (NEGATIVE); KETONES,URINE (UA) NEGATIVE (NEGATIVE); LEUKOCYTE ESTERASE, URINE TRACE (NEGATIVE); NITRITE,URINE NEGATIVE (NEGATIVE); OCCULT BLOOD,URINE NEGATIVE (NEGATIVE); PROTEIN,URINE NEGATIVE (NEGATIVE); UROBILINOGEN,URINE 0.2 (NORMAL) E.U./dL (NORMAL)
[2023-12-12 11:45] LABS: CLARITY,URINE CLEAR (CLEAR)
[2023-12-12] MEDS: KETOROLAC 15 MG/ML VIAL IVP STA (11:49)
[2023-12-12 11:56] VITALS: O2SAT 100
[2023-12-12 12:00] LABS: BACTERIA,URINE Few /HPF (None Seen); RBC,URINE 0-5 /HPF (0-5); SQUAMOUS EPITHELIAL CELL,UR RARE Squamous (<= Few); WBC,URINE 0-3 /HPF (0-5)
--- NOTE | 2023-12-12 12:13 | ED Physician Documentation ---
History of Present Illness - Stated complaint Stated Complaint: GLF - Chief complaint Chief Complaint: Neuro - History obtained from History obtained from: Patient - Additonal information Additional information: Patient is a 63-year-old female presenting for evaluation of multiple falls this morning. Patient states she has a history of a seizure disorder and is supposed to be on Dilantin and Topamax but has been noncompliant with both medications. She states she feels like she had a seizure. She does report having a headache. She denies recent cough or congestion, abdominal pain, vomiting, diarrhea, chest pain. She does have a wound to her left leg after a fall 2 weeks ago which she is unsure if that was related to his seizure and is concerned for an infection.Patient was at the [facility] This morning where the episodes occurred. It is unclear from the nurse who took triage report from EMS whether there was any witnesses to any of these episodes. 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 - Present Medications Home Medications: Ambulatory Orders Medication Instructions Recorded Confirmed Hydroxyzine Pamoate 25 mg PO DAILY PRN 03/15/16 11/13/23 Phenytoin [Dilantin] 300 mg PO DAILY 07/19/21 11/13/23 Topiramate [Topamax] 150 mg PO BID 07/19/21 11/13/23 Ibuprofen [Motrin] 600 mg PO Q6H PRN #30 tab 10/03/21 11/13/23 Topiramate [Topamax] 150 mg PO BID #60 tablet 05/22/23 11/13/23 Albuterol Sulf [Ventolin Hfa 1 - 2 puffs INH Q4HR PRN #1 each 09/12/23 11/13/23 Inhaler] hydrOXYzine pamoate [Hydroxyzine 25 - 50 mg PO Q6HR PRN #20 cap 09/12/23 11/13/23 Pamoate] Topiramate [Topamax] 150 mg PO BID #90 tablet 11/13/23 Doxycycline Hyclate 100 mg PO BID #14 tab 12/12/23 - Allergies Allergies/Adverse Reactions: Allergies Allergy/AdvReac Type Severity Reaction Status Date / Time codeine Allergy Severe Rash Verified 12/12/23 10:52 - Social History Does the pt smoke?: Yes Smoking Status: Current every day smoker Does the pt drink ETOH?: No Does the pt have substance abuse?: No - Immunizations Immunizations are current?: Yes Immunizations: TDAP >10years/unknown - POLST Patient has POLST: No PD ED PE NORMAL - General General: Alert and oriented X 3, No acute distress, Well developed/nourished - HEENT HEENT: Atraumatic, PERRL, Moist mucous membranes, Pharynx benign - Neck Neck: Supple, no meningeal sign, No bony TTP - Cardiac Cardiac: RRR, Strong equal pulses - Respiratory Respiratory: No respiratory distress, Clear bilaterally - Abdomen Abdomen: Normal bowel sounds, Soft, Non tender, Non distended - Extremities Extremities: Other (2 cm wound to lateral L leg with black scab and mild surrounding erythema; no fluctuance) - Neuro Neuro: Alert and oriented X 3, No motor deficit, No sensory deficit, Normal speech Results - Vitals Vitals: Vital Signs - 24 hr 12/12/23 12/12/23 12/12/23 10:46 11:52 12:19 Temperature 36.3 C L 36.3 C L Heart Rate 76 65 78 Respiratory 18 18 20 Rate Blood Pressure 119/79 116/69 104/93 H O2 Saturation 99 100 100 Oxygen O2 Source Room air - EKG (time done) 1115 EKG releavant findings:: EKG personally interpreted by author of this note. Relevant findings are: Rate 67, normal sinus rhythm, no STEMI, Disagree with machine interpretation of atrial fibrillation - motion artifact at the baseline but clear P waves before each QRS - most clear in lead III; - Labs Labs: Laboratory Tests 12/12/23 12/12/23 12/12/23 11:11 11:11 11:11 WBC 5.4 RBC 4.58 Hgb 12.7 Hct 40.2 MCV 87.8 MCH 27.7 MCHC 31.6 L RDW 13.9 Plt Count 231 MPV 9.8 Neut # (Auto) 3.2 Lymph # (Auto) 1.6 Angelina # (Auto) 0.4 Eos # (Auto) 0.1 Baso # (Auto) 0.1 Absolute Nucleated RBC 0.00 Nucleated RBC % 0.0 Sodium 140 Potassium 3.8 Chloride 108 Carbon Dioxide 25 Anion Gap 7.0 BUN 12 Creatinine 0.7 Estimated GFR (MDRD) 85 L Glucose 87 Lactic Acid 1.0 Calcium 9.6 Total Bilirubin 0.5 AST 14 ALT 12 Alkaline Phosphatase 93 Total Protein 7.1 Albumin 4.1 Globulin 3.0 Albumin/Globulin Ratio 1.4 Lipase 34 Urine Color Urine Clarity Urine pH Ur Specific [place] Urine Protein Urine Glucose (UA) Urine Ketones Urine Occult Blood Urine Nitrite Urine Bilirubin Urine Urobilinogen Ur Leukocyte Esterase Urine RBC Urine WBC Ur Squamous Epith Cells Urine Bacteria Ur Microscopic Review Urine Culture Comments 12/12/23 11:31 WBC RBC Hgb Hct MCV MCH MCHC RDW Plt Count MPV Neut # (Auto) Lymph # (Auto) Angelina # (Auto) Eos # (Auto) Baso # (Auto) Absolute Nucleated RBC Nucleated RBC % Sodium Potassium Chloride Carbon Dioxide Anion Gap BUN Creatinine Estimated GFR (MDRD) Glucose Lactic Acid Calcium Total Bilirubin AST ALT Alkaline Phosphatase Total Protein Albumin Globulin Albumin/Globulin Ratio Lipase Urine Color LIGHT YELLOW Urine Clarity CLEAR Urine pH 7.0 Ur Specific [place] 1.010 Urine Protein NEGATIVE Urine Glucose (UA) NEGATIVE Urine Ketones NEGATIVE Urine Occult Blood NEGATIVE Urine Nitrite NEGATIVE Urine Bilirubin NEGATIVE Urine Urobilinogen 0.2 (NORMAL) Ur Leukocyte Esterase TRACE H Urine RBC 0-5 Urine WBC 0-3 Ur Squamous Epith Cells RARE Squamous Urine Bacteria Few Ur Microscopic Review INDICATED Urine Culture Comments INDICATED PD Medical Decision Making - ED course Complexity details: reviewed results, d/w patient ED course: Patient is a 63-year-old female presenting after which she reports of multiple seizures today. However her description of the episodes does not sound like a true seizure episodes. She has a normal neuroexam. She is quite a poor historian and becomes quite upset when I try to clarify her presentation. CBC, chemistry were obtained and reviewed. Urine without infection. She does have a wound to the left leg which is overall well-appearing but does have some mild surrounding redness so we will treat for cellulitis. She is ambulatory here without any focal deficits. 1214 - Patient became quite upset when I started asking her further questions about these episodes trying to get more history.Patient states that she had 3-4 episodes at this been [facility] and then 3-4 more episodes while she was on the sidewalk but states that she was awake during all episodes and remembers everything. She states that both arms were shaking and this is how she has had seizures in the past. She denies having a postictal period or having any incontinence and denies any LOC. She denies that it was only 1 arm moving versus another. She becomes visibly upset when I started asking further questions about how long these episodes last and what occurs between the episodes. She starts screaming that she knows exactly what happened and why my questioning her.Patient began raising her voice and so I told her I would come back and speak to her again in 5 to 10 minutes when she has calmed down. Patient then began more upset and wanted to leave. Labs reviewed without significant findings including a normal lactic.Patient is ambulatory here. Denies any recent hold patient against her will and we will prescribe an antibiotic for mild cellulitis to the left leg wound. Departure - Departure Disposition: 01 Home, Self Care Clinical Impression: Seizure-like activity, Multiple falls, Leg wound, left Condition: Stable Instructions: ED Infec Skin Cellulitis, ED Seizure Recurrent Prescriptions: Doxycycline Hyclate 100 mg PO BID #14 tab Comments: Please make sure to take your medications as directed and have follow-up with your primary care provider. I have sent a prescription for an antibiotic To [facility] in [place]. Forms: PCP List Discharge Date/Time: 12/12/23 12:20
[2023-12-12 12:26] VITALS: BP 104/93
== END 2023-12-12 12:20 | disposition home or self-care (01) ==
LOC: EDUNIT# → ED 10:39
DX: G40.909 Epilepsy, unspecified, not intractable, without status epilepticus (principal); S80.922A Unspecified superficial injury of left lower leg, initial encounter; W18.39XA Other fall on same level, initial encounter; Z87.442 Personal history of urinary calculi; Z79.899 Other long term (current) drug therapy; F17.200 Nicotine dependence, unspecified, uncomplicated
CPT/HCPCS: 36415; 80053; 81001; 83605; 83690; 85025; 87086; 93005; 96374; 99284; A9270; 81003

== ENCOUNTER 2024-02-06 18:28 | Outpatient (CLI) | payer MEDICARE | END 2024-02-06 23:59 | disposition critical access hospital (66) | LOC: EMS 18:28 | DX: M79.662 Pain in left lower leg (principal); R23.4 Changes in skin texture; S81.812S Laceration without foreign body, left lower leg, sequela; X58.XXXS Exposure to other specified factors, sequela; Z59.01 Sheltered homelessness | CPT/HCPCS: A0425; A0429 ==

== ENCOUNTER 2024-02-06 18:38 | Emergency (ER) | payer MEDICARE ==
[2024-02-06 18:48] VITALS: BP 134/68; O2SAT 99
--- NOTE | 2024-02-06 18:50 | ED Physician Documentation ---
History of Present Illness - Stated complaint Stated Complaint: LEFT CALF INFECTION - Chief complaint Chief Complaint: Ext Problem - History obtained from History obtained from: Patient - Additonal information Additional information: 63-year-old woman with homelessness and seizure disorder who has a nonhealing wound on the lateral left leg. She was referred to wound care but could not get there for some access regions. Now having increased pain with redness. No fevers. 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 - Present Medications Home Medications: Ambulatory Orders Medication Instructions Recorded Confirmed Hydroxyzine Pamoate 25 mg PO DAILY PRN 03/15/16 11/13/23 Phenytoin [Dilantin] 300 mg PO DAILY 07/19/21 11/13/23 Topiramate [Topamax] 150 mg PO BID 07/19/21 11/13/23 Ibuprofen [Motrin] 600 mg PO Q6H PRN #30 tab 10/03/21 11/13/23 Topiramate [Topamax] 150 mg PO BID #60 tablet 05/22/23 11/13/23 Albuterol Sulf [Ventolin Hfa 1 - 2 puffs INH Q4HR PRN #1 each 09/12/23 11/13/23 Inhaler] hydrOXYzine pamoate [Hydroxyzine 25 - 50 mg PO Q6HR PRN #20 cap 09/12/23 11/13/23 Pamoate] Topiramate [Topamax] 150 mg PO BID #90 tablet 11/13/23 Doxycycline Hyclate 100 mg PO BID #14 tab 12/12/23 Bacitracin Zinc Oint 1 applic TOP BID #1 each 02/06/24 Doxycycline [Vibramycin] 100 mg PO BID #14 tablet 02/06/24 HYDROcod/ACETAM 5/325 [[place] 5/325] 1 - 2 tab PO Q6H PRN #10 tablet 02/06/24 - Allergies Allergies/Adverse Reactions: Allergies Allergy/AdvReac Type Severity Reaction Status Date / Time codeine Allergy Severe Rash Verified 02/06/24 18:45 - Social History Does the pt smoke?: Yes Smoking Status: Current every day smoker Does the pt drink ETOH?: No Does the pt have substance abuse?: No - Immunizations Immunizations are current?: Yes Immunizations: TDAP >10years/unknown - POLST Patient has POLST: No PD ED PE NORMAL - Vitals Vital signs reviewed: Yes - General General: Alert and oriented X 3, No acute distress - Extremities Extremities: Other (There is a 2 x 1 cm scab on the lateral left leg with a rim of mild surrounding cellulitis. No purulence. Nothing to culture.) - Neuro Neuro: Alert and oriented X 3, Normal speech Results - Vitals Vitals: Vital Signs - 24 hr 02/06/24 02/06/24 02/06/24 18:43 18:45 19:27 Temperature 36.7 C Heart Rate 73 Respiratory 17 17 16 Rate Blood Pressure 134/68 H O2 Saturation 99 Oxygen O2 Source Room air PD Medical Decision Making - ED course ED course: She wanted some Tylenol 3 noting that she is allergic to codeine but said she is okay with it. Otherwise wound was cleansed and dressed and started on doxycycline. Counseled her that she really does need to get into wound care. Subsequently she realized the Tylenol 3 does contain codeine and did not want it. Departure - Departure Disposition: 01 Home, Self Care Clinical Impression: Leg wound, left Condition: Good Record reviewed to determine appropriate education?: Yes Instructions: ED Infec Skin Cellulitis Prescriptions: Bacitracin Zinc Oint 1 applic TOP BID #1 each HYDROcod/ACETAM 5/325 [[place] 5/325] 1 - 2 tab PO Q6H PRN #10 tablet PRN Reason: Pain Doxycycline [Vibramycin] 100 mg PO BID #14 tablet Comments: I sent your prescriptions electronically to [facility] in [place]. Please try to talk with the advocate or psychiatric social worker at [facility] or the [facility] about getting you into wound care, you really did not need to establish with the wound care clinic. Return for new or worsening symptoms. For wound care, wash with soap and water once daily. Then apply the bacitracin ointment and a nonstick dressing and a loose wrap. Forms: PCP List Discharge Date/Time: 02/06/24 19:28
[2024-02-06] MEDS: ACETAMINOPHEN/CODEINE 300 MG/30 MG TABLET PO STA (19:02)
[2024-02-06] MEDS: DOXYCYCLINE 100 MG TABLET PO STA (19:02)
[2024-02-06] MEDS: BACITRACIN ZINC OINT 1 PACKET TOP STA (19:03)
[2024-02-06] MEDS: HYDROcod/ACETAM 5/325 MG TABLET PO STA (19:26)
== END 2024-02-06 19:28 | disposition home or self-care (01) ==
LOC: EDUNIT# → ED 18:38
DX: S81.802A Unspecified open wound, left lower leg, initial encounter (principal); L03.116 Cellulitis of left lower limb; G40.909 Epilepsy, unspecified, not intractable, without status epilepticus; Z87.442 Personal history of urinary calculi; Z79.899 Other long term (current) drug therapy; F17.200 Nicotine dependence, unspecified, uncomplicated
CPT/HCPCS: 99283; A9270

== ENCOUNTER 2024-02-09 18:32 | Outpatient (CLI) | payer MEDICARE | END 2024-02-09 23:59 | disposition critical access hospital (66) | LOC: EMS 18:32 | DX: R10.84 Generalized abdominal pain (principal); R10.813 Right lower quadrant abdominal tenderness; R10.811 Right upper quadrant abdominal tenderness; R10.812 Left upper quadrant abdominal tenderness; R11.0 Nausea; Z59.01 Sheltered homelessness | CPT/HCPCS: A0425; A0429 ==

== ENCOUNTER 2024-02-09 18:41 | Emergency (ER) | payer MEDICARE ==
[2024-02-09 19:06] VITALS: BP 155/88; O2SAT 98
== END 2024-02-09 18:54 | disposition left against medical advice (07) ==
LOC: EDBD → EDUNIT# → ED 18:41
DX: Z53.21 Procedure and treatment not carried out due to patient leaving prior to being seen by health care provider (principal)

== ENCOUNTER 2024-02-17 19:24 | Outpatient (CLI) | payer MEDICARE | END 2024-02-17 19:25 | disposition critical access hospital (66) | LOC: EMS 19:24 | DX: M79.605 Pain in left leg (principal); S81.802A Unspecified open wound, left lower leg, initial encounter | CPT/HCPCS: A0425; A0429 ==

== ENCOUNTER 2024-02-17 19:34 | Emergency (ER) | payer MEDICARE | END 2024-02-17 20:00 | disposition left against medical advice (07) | LOC: EDUNIT# → ED 19:34 | DX: Z53.21 Procedure and treatment not carried out due to patient leaving prior to being seen by health care provider (principal) ==